=== PATIENT | female | born 1975 | race Caucasian/White ===

== ENCOUNTER 2020-10-21 11:41 | Outpatient (REF) | payer OTHER, SELFPAY | END 2020-10-21 11:42 | disposition home or self-care (01) | LOC: HO.LAB 11:41 | PROVIDERS: Visit Provider Internal Medicine | DX: Z20.822 Contact with and (suspected) exposure to COVID-19 (principal) | CPT/HCPCS: 36415; C9803; U0003; U0005 ==

== ENCOUNTER 2020-11-13 08:20 | Outpatient (REF) | payer OTHER, SELFPAY | END 2020-11-13 08:21 | disposition home or self-care (01) | LOC: HO.LAB 08:20 | PROVIDERS: Visit Provider Internal Medicine | DX: Z20.822 Contact with and (suspected) exposure to COVID-19 (principal) | CPT/HCPCS: C9803; U0003; U0005 ==

== ENCOUNTER 2023-08-20 08:30 | Outpatient (REF) | payer OTHER, SELFPAY ==
[2023-08-20 11:49] LABS: MANUAL DIFF FLAG NO
[2023-08-20 11:59] LABS: Basophils Absolute Auto 0.1 X10*3/uL (0.0-0.2); Basophils Percent Auto 1.2 % (0-2); Eosinophils Absolute Auto 0.1 X10*3/uL (0.0-0.4); Eosinophils Percent Auto 2.7 % (0-4); Hematocrit 37.9 % (37.0-47.0); Hemoglobin 13.2 g/dl (12.0-16.0); Imm Gran Abs Auto 0.01 X10*3/uL (0.00-0.03); Imm Gran Pct Auto 0.2 % (0.0-0.4); Lymphocytes Absolute Auto 2.1 X10*3/uL (1.2-4.9); Lymphocytes Percent Auto 40.3 % (20-40); Mean Corpuscular HGB Conc 34.8 g/dl (31.0-35.0); Mean Corpuscular Hemoglobin 29.7 pg (27.0-33.0); Mean Corpuscular Volume 85.4 fL (80.0-98.0); Mean Platelet Volume 10.7 fL (9.4-12.3); Monocytes Absolute Auto 0.5 X10*3/uL (0.1-1.2); Monocytes Percent Auto 9.7 % (2-11); Neutrophils Absolute Auto 2.4 x10*3/uL (2.0-8.3); Neutrophils Percent Auto 45.9 % (45-73); Platelet Count 284 X10*3/uL (160-400); Red Blood Count 4.44 X10*6/uL (4.20-5.50); Red Cell Distribution Width 12.7 % (11.0-16.0); White Blood Count 5.1 X10*3/uL (4.8-10.8)
[2023-08-20 12:11] LABS: Alanine Aminotransferase 21 U/L (0-31); Albumin Level 4.2 g/dL (3.5-5.0); Alkaline Phosphatase 55 U/L (39-117); Anion Gap 12 (12-20); Aspartate Amino Transferase 21 U/L (5-31); Bilirubin Total 0.5 mg/dL (0.0-1.0); Blood Urea Nitrogen 12 mg/dL (9-16); Calcium 9.9 mg/dL (8.4-10.2); Carbon Dioxide 28 mmol/L (22-29); Chloride 105 mmol/L (96-108); Cholesterol 121 mg/dL (<200); Estimated Glomerular Filt Rate > 60; Glucose Random 93 mg/dL (60-115); HDL Cholesterol 43 mg/dL (>40); LDL Cholesterol Calculated 67 mg/dL (<100); Potassium 3.6 mmol/L (3.3-5.1); Sodium 141 mmol/L (135-145); Triglycerides 58 mg/dL (<150)
== END 2023-08-20 08:31 | disposition home or self-care (01) ==
LOC: HO.HHCL 08:30
PROVIDERS: Visit Provider Internal Medicine Geriatric Medicine
DX: I10 Essential (primary) hypertension (principal); I63.81 Other cerebral infarction due to occlusion or stenosis of small artery; Z79.899 Other long term (current) drug therapy
CPT/HCPCS: 36415; 80053; 80061; 85025

== ENCOUNTER 2023-10-06 16:22 | Outpatient (REF) | payer OTHER, SELFPAY ==
[2023-10-06 18:28] LABS: Anion Gap 10 (12-20); Blood Urea Nitrogen 10 mg/dL (9-16); Calcium 9.6 mg/dL (8.4-10.2); Carbon Dioxide 29 mmol/L (22-29); Chloride 104 mmol/L (96-108); Estimated Glomerular Filt Rate > 60; Glucose Random 90 mg/dL (60-115); Magnesium 2.1 mg/dL (1.6-2.6); Potassium 3.9 mmol/L (3.3-5.1); Sodium 139 mmol/L (135-145)
== END 2023-10-06 16:23 | disposition home or self-care (01) ==
LOC: HO.HHCL 16:22
PROVIDERS: Visit Provider Internal Medicine Geriatric Medicine
DX: I10 Essential (primary) hypertension (principal)
CPT/HCPCS: 36415; 80048; 83735

== ENCOUNTER 2024-01-04 12:48 | Outpatient (REF) | payer OTHER, SELFPAY ==
[2024-01-05 20:03] LABS: Cardiolipin IgG Ab <2.0 GPL-U/mL; Cardiolipin IgM Ab 2.2 MPL-U/mL
[2024-01-06 18:53] LABS: Homocysteine 5.7 umol/L (<10.4)
[2024-01-08 06:14] LABS: PTT (LAC) Screen 33 sec (<=40)
[2024-01-11 20:03] LABS: Factor V Leiden NEGATIVE
== END 2024-01-04 12:49 | disposition home or self-care (01) ==
LOC: HO.LAB 12:48
PROVIDERS: PCP Internal Medicine Geriatric Medicine; Visit Provider Internal Medicine Cardiovascular Disease
DX: I63.9 Cerebral infarction, unspecified (principal)
CPT/HCPCS: 36415; 81241; 83090; 85597; 85598; 85613; 85730; 86147; 93005

== ENCOUNTER 2024-01-04 12:48 | Outpatient (AMB) | payer OTHER, SELFPAY ==
--- NOTE | 2024-01-04 12:52 | A.OFFVIS_ITS ---
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 I do not have the records from [facility] where she ended up going in July when she was having symptoms of numbness in her right lower extremity. She was subsequently told that she had a lesion in the left side of the brain which is consistent with a CVA. However she has not entirely sure. She says she underwent an extensive workup including CTA, MRI. No obvious etiology was found. She was started on dual antiplatelet therapy with aspirin and Plavix but did not tolerate Plavix therapy and this was discontinued by your team. She said in 2006 when she moved to [facility] she was under lot of stress and at that time she was started on amlodipine therapy which she is currently on. Blood pressures been generally well controlled. She at that time had an echocardiogram and was told that she might have a possible PFO. Although at that time she was told that she does not need to worry about it. She also said she had an echocardiogram in [place] at which time she was also told that she might have a PFO but not to worry about it. She specifically mentions that she had a bubble study. She denies any other cardiovascular history. Denies any symptoms of exertional chest pain or shortness of breath. No prolonged palpitations or irregular heartbeat. She has never had any other events in her life. She has a nonsmoker. No family history of atrial fibrillation or strokes or any other cardiovascular disease. PFSH Surgical History History of hysterectomy Family History Father HTN (hypertension) Mother No problems noted. Social History Patient Tobacco Use Status: Never used Tobacco Review of Systems Const Denies chills, Denies daytime sleepiness, Denies fatigue, Denies fever(s), Denies frequent falls, Denies poor appetite, Denies snoring, Denies stops breathing during sleep, Denies weakness, Denies weight gain and Denies weight loss Eyes Denies loss of vision ENT Denies dizziness and Denies hearing loss Card Denies chest pain, Denies claudication, Denies leg edema, Denies lightheadedness, Denies palpitations, Denies dyspnea, Denies dyspnea on exertion and Denies orthopnea Resp Denies cough, Denies excessive phlegm production, Denies dyspnea, Denies dyspnea on exertion, Denies snoring and Denies wheezing GI Denies abdominal pain, Denies hematochezia, Denies change in bowel habits, Denies nausea and Denies vomiting Denies urinary frequency and Denies dysuria Musc Denies arthralgias, Denies muscle weakness, Denies numbness and Denies other (frequent falls) Skin/Breast Denies nail changes and Denies rash Neuro Denies Abnormal speech present, Denies dizziness, Denies frequent falls, Denies loss of vision, Denies memory loss, Denies numbness and Denies weakness Psych Denies depression and Denies memory loss Endo Denies fatigue and Denies palpitations Edgar/Lymph Reports easy bruising and Reports other (anemia) Aller/Immun Denies wheezing Physical Exam Vital Signs: Last Vital Signs Pulse 59 01/04/24 12:53 BP 130/80 01/04/24 12:53 BMI result Body Mass Index 28.2 Const General: cooperative, comfortable, no acute distress, well developed, alert, awake, Physically active and well groomed Nutritional Appearance: average body habitus Orientation/consciousness: patient oriented x3 Limitations: no limitations HEENT Head: Yes normocephalic and Yes atraumatic Neck Neck: Yes trachea midline, Yes supple and Yes no JVD Resp Effort & Inspection: normal respiratory effort Auscultation: clear to auscultation bilaterally Cardio Jugular venous distension: no JVD Palpation: normal PMI Rate: regular rate Rhythm: regular rhythm Heart sounds: S1 normal heart sound present, S2 normal heart sound present, no click, no gallops, no murmurs and no rubs GI Auscultation: normal bowel sounds Skin General skin exam: no rashes or lesions noted Neuro General: patient oriented x3 and no focal motor deficits Speech: No Abnormal speech present Extrem General: Yes no clubbing, cyanosis or edema Psych Appearance: grossly normal Office Procedures EKG Details: EKG shows sinus bradycardia 59 beats per minute poor R-wave progression most likely due to lead placement [id number], Complete Assessment & Plan Assessment & Plan (1) CVA (cerebral vascular accident): Code(s): I63.9 - Cerebral infarction, unspecified Category: Medical Plan: It seems like patient neurologic symptoms consistent with a CVA with mostly sensory symptoms with her description of imaging showing evidence of CVA. Will obtain those records from [facility]. She also has possible history of prior PFO. Her RoPE score is 6 and if she does have a PFO may be a candidate for closure device if she has no other associated hypercoagulable state and/or atrial arrhythmias. Will obtain blood test panel as well as obtain a 30 day event monitor for the same. Will also schedule her for a transesophageal echocardiogram in near future after reviewing her [facility] records. We discussed the need for transesophageal echocardiogram including the risks, benefits and alternatives. Will follow up in the clinic in 2 months time, sooner p.r.n.. Thank you for allowing me to partake in her care Orders: Orders Homocysteine Today I63.9 - Cerebral infarction, unspecified Factor V Leiden Today I63.9 - Cerebral infarction, unspecified Cardiolipin Antibodies Today I63.9 - Cerebral infarction, unspecified Lupus Anticoagulant Panel Today I63.9 - Cerebral infarction, unspecified ECG 30 day event monitor Today I63.9 - Cerebral infarction, unspecified CA echo transesophageal w con Today I63.9 - Cerebral infarction, unspecified Coding Level of Care Code New Pt Level 4 (61379) Diagnoses CVA (cerebral vascular accident) I63.9 CPT Codes EKG - CPT: 87613-[id number], Complete ([id number])
[2024-01-04 12:53] VITALS: BP 130/80; PULSE 59; BMI 28.2
== END 2024-01-04 13:37 | disposition home or self-care (01) ==
PROVIDERS: PCP Internal Medicine Geriatric Medicine; Visit Provider Internal Medicine Cardiovascular Disease
DX: I63.9 Cerebral infarction, unspecified (principal)
CPT/HCPCS: 93010; 99204

== ENCOUNTER → 2024-01-14 14:02 | Outpatient (REF) | payer OTHER, SELFPAY ==
--- NOTE | 2024-01-14 14:04 | HM_ITS ---
* Total procedure length 30 days. Wear time 4.8 days. * Underlying rhythm is sinus with an average rate of 63/Min. * Rare supraventricular ectopy. * No sustained arrhythmias. * No clear patient symptoms recorded. MTDD
== END ==
LOC: HO.CARD 14:02
PROVIDERS: PCP Internal Medicine Geriatric Medicine; Visit Provider Internal Medicine Cardiovascular Disease
DX: I63.9 Cerebral infarction, unspecified (principal); R00.1 Bradycardia, unspecified
CPT/HCPCS: 93270

== ENCOUNTER → 2024-01-14 14:04 | Outpatient (BNV) | payer OTHER, SELFPAY | PROVIDERS: PCP Internal Medicine Geriatric Medicine; Visit Provider Internal Medicine | DX: I47.10 Supraventricular tachycardia, unspecified (principal) | CPT/HCPCS: 93272 ==

== ENCOUNTER 2024-01-26 10:44 | Day surgery (SDC) | payer OTHER, SELFPAY ==
[2024-01-24 07:44] VITALS: BMI 28.2
--- NOTE | 2024-01-24 15:00 | P.CONAN_ITS ---
Documented by User: Mary Ann Handley NP 01/24/24 15:02 HPI - Anesthesia Eval Consult details Narrative: 48yo F for Transesophageal Echocardiogram ? CVA 07/2023 (Seen at [facility]) Possible hx PFO PMFSH Active Problems Active Problems: All Active Problems CVA (cerebral vascular accident) (Acute) Past Medical History Medical History CVA (cerebral vascular accident) Family History Family History Father HTN (hypertension) Mother No problems noted. Surgical History Surgical History History of hysterectomy Social History Social History Patient Tobacco Use Status: Never used Tobacco Advance Directives: No Advance Directives Information Provided: Yes Meds Allergies Allergy/AdvReac Type Severity Reaction Status Date / Time No Known Allergies Allergy Unverified 04/18/20 18:40 [No Known Allergies*] Home Medications ?Medication ?Instructions ?Recorded ?Confirmed ?Last Taken ?Type amlodipine 5 mg tablet 5 mg PO QAM 01/04/24 01/04/24 Unknown History aspirin 81 mg tablet,delayed 81 mg PO DAILY 01/04/24 01/04/24 Unknown History release Exam Height,Weight and Vital Signs: Height 5 ft 2 in Weight 69.853 kg Pertinent Lab Results Pertinent Lab Results: Laboratory Tests 08/20/23 10/06/23 08:32 16:24 WBC 5.1 Hgb 13.2 Hct 37.9 Plt Count 284 Sodium 139 Potassium 3.9 Chloride 104 Carbon Dioxide 29 BUN 10 Creatinine 0.72 Narrative Narrative: EKG 01/2024 sinus bradycardia 59 beats per minute poor R-wave progression most likely due to lead placement Assessment and Plan Assessment Anesthesia Assessment: Chart Reviewed Documented by User: Ashley Hilario MD 01/26/24 11:20 [facility] Past Medical History Medical History CVA (cerebral vascular accident) Family History Family History Father HTN (hypertension) Mother No problems noted. Family history of problems with anesthesia: No Surgical History Surgical History History of hysterectomy History of Problems with Anesthesia: No Social History Social History Patient Tobacco Use Status: Never used Tobacco Advance Directives: No Advance Directives Information Provided: Yes Meds Allergies Allergy/AdvReac Type Severity Reaction Status Date / Time No Known Allergies Allergy Unverified 04/18/20 18:40 [No Known Allergies*] Home Medications ?Medication ?Instructions ?Recorded ?Confirmed ?Last Taken ?Type amlodipine 5 mg tablet 5 mg PO QAM 01/04/24 01/04/24 Unknown History aspirin 81 mg tablet,delayed 81 mg PO DAILY 01/04/24 01/04/24 Unknown History release Exam Airway Mallampati Class: II TM Dist: >3cm Heart: rrr Lungs: cta Assessment and Plan Assessment Anesthesia Assessment: Anesthesia Plan Discussed Final Anesthetic Review Family History of Problems with Anesthesia: No History of Problems with Anesthesia: No NPO: Yes ASA Class: III Final Preanesthetic Review: No Changes in Pt Med Stat, Meds/Allgs Chart Reviewed, Consent Obtained/Reviewed and Anes Risks/Benef Reviewed Patient Risk: Intermediate Procedure Risk: Low Anesthetic Plan Anesthetic Plan: MAC: Disposition: Standard PACU
--- NOTE | 2024-01-26 11:12 | CA_ITS ---
Transesophageal Echocardiogram Patient (Last, First, Middle): Magaly Day, Gender: Female Date of : 1975 Age: 48 Procedure Date: 01/26/2024 Procedure Type: Transesophageal Echocardiogram Location: OP Height: 157.48 cm Weight: 69. kg BSA: 1.70 m2 Heart Rate: 80 bpm Fare Enforcement Officer: RICARDO Referring MD: Tc Swift MD Outside Machinist Helper: Tc Swift MD Symptoms: CVA Conclusion: ??? 1. PFO present which is moderately positive by saline contrast study 2. Normal LV systolic function 3. Cardiac valves within normal limits with no significant abnormality of cardiac valvular Dopplers 4. No intracardiac thrombi, masses, vegetations 5. Normal pericardium 6. Minimal atherosclerotic changes noted in the descending thoracic aorta Findings Procedure Information Consent was obtained prior to the procedure. Pre ZEFERINO oral cavity was checked and revealed no overcrowding. The adult 3D probe was passed with no difficulty. Left Ventricle Normal left ventricular size, thickness, and systolic function. The visually estimated ejection fraction is between 60-65%. Spectral Doppler is indicative of a normal filling pattern. Right Ventricle Normal right ventricular cavity size and systolic function. Atria The left atrium is normal in size. There is a mobile atrial septum noted. There is no evidence of a thrombus in the left atrial appendage. Contrast study for right to left shunting is moderately positive. Patent foramen ovale detected using by contrast. There is no evidence of thrombus or mass in the left atrium. The left upper, right upper and right lower pulmonary veins drain normally into the left atrium. The right atrium is normal in size. There is no evidence of thrombus or mass in the right atrium. The IVC and SVC draining into the right atrium normally. Aortic Valve Normal aortic valve structure and function. There is no aortic valve stenosis. There is no aortic valve regurgitation. Mitral Valve Normal mitral valve structure and function. There is trace mitral valve regurgitation. There is no mitral valve stenosis. Mild strand-like structure attached to the anterior mitral leaflet which is floating most suggestive of ruptured tertiary chordae Pulmonic Valve The pulmonic valve is normal. There is trace pulmonic valve regurgitation. Tricuspid Valve There is trace tricuspid valve regurgitation. The right ventricular systolic pressure is not calculated. Great Vessels All visible segments of the aorta are normal in size. The visualized portions of the pulmonary artery and branches are normal. mild atherosclerotic changes noted in the descending thoracic aorta Venous The inferior vena cava is normal in size and collapses greater than 50% with inspiration. Pericardium/Pleural There is no evidence of pericardial effusion. Prior Study Comparison No prior study available for comparison. Measurements Aortic Valve AoV Pk Josue: 1.34 AoV Pk Grad: 7.00 Pulmonary Veins Pulm Vein S/D 1.90 Updated by Tc Swift on 08:29 AM with Status of Final Tc Swift MD electronically signed on 01/27/2024 8:29:36 AM with status of Final
--- NOTE | 2024-01-26 11:12 | MHC.SHP ---
Pre-Procedural Eval Section A - 24 Hr Update-Section A only Date of Service: 01/26/24 The patient is an INPATIENT: No Changes since office visit: Yes Patient answered all questions; No Cold of Flu in the past 2 weeks, No New Medical Problems and No Changes in Medication The patient has been examined within 24 hours of the surgical procedure. The History & Physical has been completed within 30 days and I have reviewed it.: Yes Section B - Complete if H&P > 30 days Chief Complaint: Cerebral infarction, unspecified Allergies: Allergies Allergy/AdvReac Type Severity Reaction Status Date / Time No Known Allergies Allergy Unverified 04/18/20 18:40 [No Known Allergies*] Plan I have reviewed the history and physical and performed a pertinent physical examination on my patient. No changes have occurred unless specified. Time Spent With Patient Time: Total time managing care of this patient today ____ minutes.
[2024-01-26 11:19] VITALS: BP 163/76; PULSE 59; RESP 18; TEMP 36.7; O2SAT 99
[2024-01-26] MEDS: Lactated Ringers 1,000 ML 100 ML IVCONT (11:24)
[2024-01-26 12:48] VITALS: BP 154/87; PULSE 73; RESP 16; TEMP 36.1; O2SAT 97
[2024-01-26 13:03] VITALS: BP 148/91; PULSE 54; RESP 16; O2SAT 100
[2024-01-26 13:18] VITALS: BP 158/83; PULSE 58; RESP 16; O2SAT 99
[2024-01-26 13:33] VITALS: BP 157/86; PULSE 58; RESP 16; TEMP 36.3; O2SAT 98
== END 2024-01-26 14:50 | disposition home or self-care (01) ==
PROVIDERS: PCP Internal Medicine Geriatric Medicine; Visit Provider Internal Medicine Cardiovascular Disease
PROC: (CPT 93312; principal; 2024-01-26 12:00)
DX: I63.9 Cerebral infarction, unspecified (principal); Z79.82 Long term (current) use of aspirin; Z79.02 Long term (current) use of antithrombotics/antiplatelets
CPT/HCPCS: 93312; J2704

== ENCOUNTER → 2024-01-26 11:12 | Outpatient (BNV) | payer OTHER, SELFPAY | PROVIDERS: PCP Internal Medicine Geriatric Medicine; Visit Provider Internal Medicine Cardiovascular Disease | DX: I63.9 Cerebral infarction, unspecified (principal) | CPT/HCPCS: 93312; 93320 ==

== ENCOUNTER 2024-01-27 07:38 | Outpatient (AMB) | payer OTHER, SELFPAY ==
--- NOTE | 2024-01-27 07:39 | MHC.OFFVIS ---
Vital Signs 01/27/24 07:42 01/27/24 08:16 Height 5 ft 2 in Weight 156 lb 8.451 oz BMI 28.6 BP 175/72 H 148/71 H Blood Pressure Location Lt brachial Lt brachial Position Sitting Sitting Pulse 57 55 Intake Visit Reasons: pt. wants to speak with Dr. Lee Intake Note: Magaly presents in the office to speak with Dr Lee. CC: She states that her stomach bothers her - she suffers from constipation. She states that it will be 5-7 days without a BM - she states she is eating better and not sure if maybe that it is normal. She states the pains are in the middle epigastric region. 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 wants to speak with Dr. Lee: Details: Initial GI clinic visit for this 48 Y Female with multiple myeloma (on biologics in the past) and left-sided thalamic stroke (aug, 2023) for evaluation of abdominal pain and constipation. Pt has multiple myeloma and she is not on any medications at present (followed by Dr Crow at [facility] every [address] Loya at every 6 months) She was having diarrhea on Revlimid (Lenalidomide) for Multiple Myeloma. LABS IN [facility] : 08/20/23 reviewed - normal CBC, Chem panel and LFTs TODAY'S VISIT: CC: She states that her stomach bothers her - she suffers from constipation. She states that it will be 5-7 days without a BM - she states she is eating better and not sure if maybe that it is normal. She states the pains are in the middle epigastric region - notes chest pressure/? spasm when she bends down (pt states she was told she may have a hernia when she had a hysterectomy) Has been eating a healthier, low carb diet. Taking more fruits and vegetables and notes increase in constipation Drinks a lot of water. She was having a BM 3-4 times a week and now having a BM every 5 days with straining and hard stools. A lot of pain and pushing without results Took a red pill which has helped. Abd feels hard and feels like its going to blow. Intermittent loss of appetite Patient denies symptoms of heartburn, dysphagia, nausea, vomiting or weight loss. Denies diarrhea, black stools or rectal bleeding. Stool can be dark at times depending on her diet. Patient denies major cardiac or pulmonary problems, loud snoring or sleep apnea Had a bubble test on 01/26/24 - cardiology FU in March. Denies problems with anesthesia in the past. Takes aspirin daily and denies being on chronic anticoagulation (Plavix was causing stomach pains). Patient denies known family history of colon polyps, colon cancer or other GI malignancies. PAST EGD/COLONOSCOPY: Thinks she may have had an EGD in [place] in her 20's - negative per pt [facility] Medical History CVA (cerebral vascular accident) Surgical History History of hysterectomy Family History Father HTN (hypertension) Mother No problems noted. Social History Patient Tobacco Use Status: Never used Tobacco Review of Systems Const Denies chills, Denies daytime sleepiness, Denies fatigue, Denies fever(s), Denies frequent falls, Denies poor appetite, Denies snoring, Denies stops breathing during sleep, Denies weakness, Denies weight gain and Denies weight loss Eyes Denies loss of vision ENT Denies dizziness and Denies hearing loss Card Denies chest pain, Denies claudication, Denies leg edema, Denies lightheadedness, Denies palpitations, Denies dyspnea, Denies dyspnea on exertion and Denies orthopnea Resp Denies cough, Denies excessive phlegm production, Denies dyspnea, Denies dyspnea on exertion, Denies snoring and Denies wheezing GI Denies abdominal pain, Denies hematochezia, Denies change in bowel habits, Denies nausea and Denies vomiting Denies urinary frequency and Denies dysuria Musc Denies arthralgias, Denies muscle weakness, Denies numbness and Denies other (frequent falls) Skin/Breast Denies nail changes and Denies rash Neuro Denies Abnormal speech present, Denies dizziness, Denies frequent falls, Denies loss of vision, Denies memory loss, Denies numbness and Denies weakness Psych Denies depression and Denies memory loss Endo Denies fatigue and Denies palpitations Edgar/Lymph Reports easy bruising and Reports other (anemia) Aller/Immun Denies wheezing Physical Exam Vital Signs: Last Vital Signs Pulse 55 01/27/24 08:16 BP 148/71 H 01/27/24 08:16 BMI result Body Mass Index 28.6 Const General: cooperative, comfortable, no acute distress, well developed, alert, awake, Physically active and well groomed Nutritional Appearance: average body habitus Orientation/consciousness: patient oriented x3 Limitations: no limitations HEENT Head: Yes normocephalic and Yes atraumatic Neck Neck: Yes trachea midline, Yes supple and Yes no JVD Resp Effort & Inspection: normal respiratory effort Auscultation: clear to auscultation bilaterally Cardio Jugular venous distension: no JVD Palpation: normal PMI Rate: regular rate Rhythm: regular rhythm Heart sounds: S1 normal heart sound present, S2 normal heart sound present and no murmurs GI Auscultation: normal bowel sounds Skin General skin exam: no rashes or lesions noted Neuro General: patient oriented x3 and no focal motor deficits Speech: No Abnormal speech present Extrem General: Yes no clubbing, cyanosis or edema Psych Appearance: grossly normal Assessment & Plan Assessment & Plan (1) Chronic constipation: Code(s): K59.09 - Other constipation Category: Medical (2) Colon cancer screening: Code(s): Z12.11 - Encounter for screening for malignant neoplasm of colon Category: Medical Plan 48 year old female with multiple myeloma (on biologics in the past) and left-sided thalamic stroke (aug, 2023) for evaluation of abdominal pain and constipation. She states that it will be 5-7 days without a BM - she states she is eating better and not sure if maybe that it is normal. She states the pains are in the middle epigastric region - notes chest pressure/? spasm when she bends down (pt states she was told she may have a hernia when she had a hysterectomy) Recent onset of constipation likely due to a change in her diet and colonic inertia. Patient was advised to take senna plus every other day and monitor her symptoms. Schedule colonoscopy (screening and constipation) and same day EGD (epigastric pain/? GERD) Both procedures and potential complications including bleeding, perforation, reaction to anesthetic and aspiration were reviewed with the patient. FU in 4 months Medications: New sennosides-docusate sodium 8.6-50 mg (Senna with Docusate Sodium) Please take every other day at bedtime 1 tab-cap PO BEDTIME 60 tabs 2RF 60 days Coding Level of Care Code New Pt Level 4 (83479) Diagnoses Chronic constipation K59.09 Colon cancer screening Z12.11 Time Spent (min) 26
[2024-01-27 07:42] VITALS: BP 175/72; PULSE 57; BMI 28.6
[2024-01-27 08:16] VITALS: BP 148/71; PULSE 55
== END 2024-01-27 08:20 | disposition home or self-care (01) ==
LOC: HO.HGI 07:38
PROVIDERS: PCP Internal Medicine Geriatric Medicine; Visit Provider Internal Medicine Gastroenterology
DX: K59.09 Other constipation (principal); Z12.11 Encounter for screening for malignant neoplasm of colon
CPT/HCPCS: 99204

== ENCOUNTER → 2024-01-27 07:38 | Outpatient (BNVA) | payer OTHER, SELFPAY | PROVIDERS: PCP Internal Medicine Geriatric Medicine; Visit Provider Internal Medicine Gastroenterology ==

== ENCOUNTER 2024-03-06 13:20 | Outpatient (AMB) | payer OTHER, SELFPAY ==
--- NOTE | 2024-03-06 13:24 | MHC.OFFVIS ---
Vital Signs 03/06/24 13:25 Height 5 ft 2 in Weight 156 lb 8.451 oz BMI 28.6 BP 140/86 H Blood Pressure Location Lt brachial Position Sitting Pulse 66 Intake Visit Reasons: 2 mth s/p ZEFERINO/ labs/ event Intake Note: 2 month follow-up after ZEFERINO and event monitor [employer] Worker Required: No Allergies No Known Allergies [No Known Allergies*] Allergy (Unverified 01/27/24 07:42) Medication List - Last Reconciled 03/06/24 by Tc Swift MD amlodipine 5 mg PO QAM aspirin 81 mg PO DAILY sennosides-docusate sodium 8.6-50 mg (Senna with Docusate Sodium) 1 tab-cap PO BEDTIME 60 days HPI Comments Details: Magaly comes for follow-up. She underwent a ZEFERINO which showed presence of PFO, was referred for PFO closure although she has not heard from anybody. Patient had a event monitor without any episodes of atrial fibrillation. Patient also has negative thrombophilic workup. Comes for follow-up. No recurrent neurologic events. Takes all her medications [facility] Medical History CVA (cerebral vascular accident) Surgical History History of hysterectomy Family History Father HTN (hypertension) Mother No problems noted. Social History Patient Tobacco Use Status: Never used Tobacco Review of Systems Const Denies chills, Denies fatigue, Denies fever(s), Denies frequent falls, Denies weakness, Denies weight gain and Denies weight loss ENT Denies dizziness Card Denies chest pain, Denies leg edema, Denies lightheadedness, Denies palpitations, Denies dyspnea, Denies dyspnea on exertion, Denies orthopnea and Denies other (loss of consciousness) Resp Denies cough, Denies dyspnea and Denies dyspnea on exertion GI Denies hematochezia and Denies change in stool character Musc Denies abnormal gait, Denies muscle weakness, Denies numbness, Denies radiating pain into limb and Denies tingling Neuro Denies Abnormal speech present, Denies abnormal gait, Denies dizziness, Denies frequent falls, Denies numbness, Denies tingling and Denies weakness Endo Denies fatigue and Denies palpitations Physical Exam Vital Signs: Last Vital Signs Pulse 66 03/06/24 13:25 BP 140/86 H 03/06/24 13:25 BMI result Body Mass Index 28.6 Const General: cooperative, comfortable, no acute distress, well developed, alert, awake, Physically active and well groomed Nutritional Appearance: average body habitus Orientation/consciousness: patient oriented x3 Limitations: no limitations HEENT Head: Yes normocephalic and Yes atraumatic Neck Neck: Yes trachea midline, Yes supple and Yes no JVD Resp Effort & Inspection: normal respiratory effort Auscultation: clear to auscultation bilaterally Cardio Jugular venous distension: no JVD Palpation: normal PMI Rate: regular rate Rhythm: regular rhythm Heart sounds: S1 normal heart sound present, S2 normal heart sound present, no click, no gallops, no murmurs and no rubs GI Auscultation: normal bowel sounds Skin General skin exam: no rashes or lesions noted Neuro General: patient oriented x3 and no focal motor deficits Speech: No Abnormal speech present Extrem General: Yes no clubbing, cyanosis or edema Psych Appearance: grossly normal Assessment & Plan Assessment & Plan (1) CVA (cerebral vascular accident): Code(s): I63.9 - Cerebral infarction, unspecified Category: Medical Plan: CVA with thalamic stroke with repeat TIA with presence of PFO by ZEFERINO. No other obvious etiology with negative thrombophilic workup as well as no evidence of atrial fibrillation. RoPE score of 6. I think patient would benefit from PFO closure. Will refer to Dr. Figueroa at [facility] for the same and evaluation. Will follow up post closure. Coding Level of Care Code Est Pt Level 3 (41999) Diagnoses CVA (cerebral vascular accident) I63.9
[2024-03-06 13:25] VITALS: BP 140/86; PULSE 66; BMI 28.6
== END 2024-03-06 13:43 | disposition home or self-care (01) ==
PROVIDERS: PCP Internal Medicine Geriatric Medicine; Visit Provider Internal Medicine Cardiovascular Disease
DX: I63.9 Cerebral infarction, unspecified (principal)
CPT/HCPCS: 99213

== ENCOUNTER → 2024-03-06 13:20 | Outpatient (BNVA) | payer OTHER, SELFPAY | PROVIDERS: PCP Internal Medicine Geriatric Medicine; Visit Provider Internal Medicine Cardiovascular Disease ==

== ENCOUNTER 2024-05-12 09:03 | Outpatient (REF) | payer OTHER, SELFPAY ==
[2024-05-12 11:46] LABS: Anion Gap 10 (12-20); Blood Urea Nitrogen 19 mg/dL (9-16); Calcium 8.8 mg/dL (8.4-10.2); Carbon Dioxide 29 mmol/L (22-29); Chloride 106 mmol/L (96-108); Estimated Glomerular Filt Rate > 60; Glucose Random 99 mg/dL (60-115); Potassium 3.7 mmol/L (3.3-5.1); Sodium 141 mmol/L (135-145)
== END 2024-05-12 09:04 | disposition home or self-care (01) ==
LOC: HO.HHCL 09:03
PROVIDERS: Visit Provider Internal Medicine Geriatric Medicine
DX: I10 Essential (primary) hypertension (principal)
CPT/HCPCS: 36415; 80048

== ENCOUNTER 2024-06-23 10:18 | Emergency (ER) | payer OTHER, SELFPAY ==
[2024-06-23] VITALS (8 sets, daily range): BP systolic 142–189; BP diastolic 68–93; PULSE 64–76; RESP 16–18; TEMP 37–37.1; O2SAT 98–100; BMI 28.3
--- NOTE | ~2024-06-23 | XR_ITS ---
EXAMINATION: XR CHEST CLINICAL INFORMATION: chest pain COMPARISON: None available. TECHNIQUE: PA view of the chest was obtained. FINDINGS: The lungs are well expanded. No focal consolidation, effusion, edema, or pneumothorax. The cardiomediastinal silhouette is within normal limits for technique. Atrial septal defect closure device. No acute osseous abnormality. Amorphous density overlying the upper trachea and biapical lungs likely represents clothing external to the patient, such as a hair scrunchie. XR/XR chest 1V IMPRESSION: No acute pulmonary disease. Electronically signed by: Bouchra Fitzgerald DO 06/23/2024 02:56 PM JASMINE
--- NOTE | 2024-06-23 10:20 | ECG_ITS ---
Test Reason : CP Blood Pressure : / mmHG Vent. Rate : 071 BPM Atrial Rate : 071 BPM P-R Int : 164 ms QRS Dur : 090 ms QT Int : 382 ms P-R-T Axes : -01 -04 -03 degrees QTc Int : 415 ms Normal sinus rhythm Anterior infarct , age undetermined Abnormal ECG No previous ECGs available Referred By: Generic ED Physician Electronically Signed By:JENN WALTER MD
[2024-06-23 10:50] LABS: MANUAL DIFF FLAG NO
[2024-06-23 10:55] LABS: Basophils Absolute Auto 0.1 X10*3/uL (0.0-0.2); Basophils Percent Auto 0.8 % (0-2); Eosinophils Absolute Auto 0.1 X10*3/uL (0.0-0.4); Hematocrit 38.7 % (37.0-47.0); Hemoglobin 13.5 g/dl (12.0-16.0); Imm Gran Abs Auto 0.02 X10*3/uL (0.00-0.03); Imm Gran Pct Auto 0.3 % (0.0-0.4); Lymphocytes Absolute Auto 1.6 X10*3/uL (1.2-4.9); Lymphocytes Percent Auto 26.9 % (20-40); Mean Corpuscular HGB Conc 34.9 g/dl (31.0-35.0); Monocytes Absolute Auto 0.6 X10*3/uL (0.1-1.2); Monocytes Percent Auto 10.6 % (2-11); Neutrophils Absolute Auto 3.5 x10*3/uL (2.0-8.3); Neutrophils Percent Auto 59.4 % (45-73); Platelet Count 236 X10*3/uL (160-400); Red Cell Distribution Width 12.9 % (11.0-16.0)
[2024-06-23 11:11] LABS: Alanine Aminotransferase 17 U/L (0-31); Albumin Level 3.9 g/dL (3.5-5.0); Alkaline Phosphatase 49 U/L (39-117); Anion Gap 9 (12-20); Aspartate Amino Transferase 20 U/L (5-31); Bilirubin Total 0.8 mg/dL (0.0-1.0); Blood Urea Nitrogen 13 mg/dL (9-16); Carbon Dioxide 23 mmol/L (22-29); Chloride 107 mmol/L (96-108); Estimated Glomerular Filt Rate > 60; Glucose Random 94 mg/dL (60-115); Potassium 3.3 mmol/L (3.3-5.1); Sodium 136 mmol/L (135-145); Total Protein 6.8 g/dL (6.5-8.0)
[2024-06-23 11:16] LABS: Troponin-I High Sensitivity < 2.7 ng/L (<3.5-17.0)
--- NOTE | 2024-06-23 11:42 | PC.NURSE ---
resting queitly in bed. nsr on monitor. reports dizziness, palpitations, left anterior CP since wednesday. intermittent. also was SOB at times. no sx at this time
--- NOTE | 2024-06-23 12:00 | ED_ITS ---
HPI - Chest Pain General Chief Complaint: Chest Pain Stated Complaint: chest pain rapid heart beat Time Seen by Provider: 06/23/24 11:09 Source: patient, RN notes reviewed and old records reviewed Mode of arrival: ambulatory History of Present Illness ED Provider: Ronel Cortez PA-C HPI narrative: 49-year-old female with a past medical history CVA, PFO s/p surgical closure on 05/25/24 at [facility], presenting to the ED complaining of intermittent chest tightness, palpitations, SOB, and lightheadedness x 5 days. Denies associated fever, chills, nausea, vomiting, abdominal pain, pedal edema. Is currently on Plavix/ASA Related Data Home Medications ?Medication ?Instructions ?Recorded ?Confirmed amlodipine 5 mg tablet 5 mg PO QAM 01/04/24 03/06/24 aspirin 81 mg tablet,delayed 81 mg PO DAILY 01/04/24 03/06/24 release Previous Rx's ?Medication ?Instructions ?Recorded sennosides 8.6 mg-docusate sodium 1 tab-cap PO BEDTIME 60 days #60 01/27/24 50 mg tablet (Senna with Docusate tabs Sodium) Allergies Allergy/AdvReac Type Severity Reaction Status Date / Time No Known Allergies Allergy Verified 06/23/24 10:36 [No Known Allergies*] Review of Systems 2 Review of Systems: Yes all other systems are reviewed and are negative Constitutional: Constitutional: Reports as per HPI Neurologic: Denies Abnormal speech present [facility] Past Medical History Attestation statement: The following information was validated with the patient. Source: old records reviewed Medical History CVA (cerebral vascular accident) Surgical History History of hysterectomy Family History Family History Father HTN (hypertension) Mother No problems noted. Social History Social History Patient Tobacco Use Status: Never used Tobacco Smoked in Last 30 Days: No Use of substances other than those prescribed or required for medical reasons: No Advance Directives: No Advance Directives Information Provided: Yes Do you have a plan to hurt others: No Plan Patient : No Physical Exam 2 Vital Signs: Vital Signs: Last Vital Signs Temp 98.7 F 06/23/24 15:54 Pulse 68 06/23/24 15:54 Resp 18 06/23/24 15:54 BP 160/86 H 06/23/24 15:54 Pulse Ox 98 06/23/24 15:54 O2 Del Method Room Air 06/23/24 15:54 BMI result Body Mass Index 28.3 Const: General: cooperative, healthy appearing and no acute distress O rientation/consciousness: patient oriented x3 Limitations: no limitations HEENT: Head: Yes normal to inspection and Yes atraumatic Ears: hearing grossly normal bilaterally General nose exam: Normal external nose present Face and sinus: Yes normal facial exam Mouth: Normal oral and palatal mucosa present Throat: Yes posterior oropharynx normal and Yes uvula midline Eyes: General: appearance normal, both eyes and all related structures P upils: Equal, round and reactive pupils present EOM: EOMs intact bilaterally Neck: Neck: Yes normal visual inspection and Yes no meningeal signs Resp: Effort & Inspection: normal respiratory effort and no respiratory distress Auscultation: clear to auscultation bilaterally, no crackles and no wheezes Cardio: Rate: regular rate Heart sounds: S1 normal heart sound present and S2 normal heart sound present GI: Inspection: Yes normal to inspection Palpation (GI): Soft to palpation, nontender, no guarding and not rigid Skin: Rashes: no rashes Wounds: no wounds Neuro: General: patient oriented x3, gait normal, tone normal, moves all extremities, no meningeal signs, no focal motor deficits and CN's II-XI intact bilaterally Cranial nerves: Yes CN's II-XII intact bilaterally and Yes Equal, round and reactive pupils present Cognition (Neuro): normal cognition S peech: No Abnormal speech present Gait exam (Neuro): Normal gait present M otor exam (neuro): 5/5 motor strength present throughout Extrem: General: Yes normal to inspection and Yes no pedal edema Course Course Course Narrative: -[id number]-- labs reassuring including negative troponin and TSH - viral studies negative - CXR unremarkable > spoke with [facility] cardiology, Dr. Stevenson, discussed case. States unlikely related to procedure, he will leave note for Dr. Figueroa (patients MD). Comfortable for patient to be discharged Results discussed with patient including worrisome signs and symptoms and strict return precautions, and when to return to the emergency department. They verbalized understanding and feel safe for discharge at this time. Medical Decision Making Medical Decision Making [facility] Narrative: 49-year-old female with a past medical history CVA, PFO s/p surgical closure on 05/25/24 at [facility], presenting to the ED complaining of intermittent chest tightness, palpitations, SOB, and lightheadedness x 5 days. on exam vital signs stable, mildly hypertensive, NAD, nontoxic appearing, lungs CTA, no pedal edema, no focal neuro deficits. Concern for atypical ACS vs anxiety vs viral syndrome vs CHF vs pneumonia/ PTX or surgical complication. Low suspicion for PE/ DVT or dissection Plan: EKG, labs, CXR, viral studies, consult patient's mechanical system technician Please refer to course for remaining clinical decision making, interpretation of labs/imaging results, and discussions with consultants and/or family members. Differential Diagnosis Differential Diagnoses: The differential diagnosis associated with the presentation includes As above Admission/Observation Consideration of admission/observation: Escalation of care including admission/observation considered Consult Healthcare Provider Management of the patient was discussed with: [employer] Lab Data [facility] Lab Attestation statement: I reviewed the patient's lab results. 06/23/24 10:45 06/23/24 10:45 Labs: Lab Results 06/23/24 06/23/24 Range/Units 10:45 12:03 WBC 6.0 (4.8-10.8) X10*3/uL RBC 4.50 (4.20-5.50) X10*6/uL Hgb 13.5 (12.0-16.0) g/dl Hct 38.7 (37.0-47.0) % MCV 86.0 (80.0-98.0) fL MCH 30.0 (27.0-33.0) pg MCHC 34.9 (31.0-35.0) g/dl RDW 12.9 (11.0-16.0) % Plt Count 236 (160-400) X10*3/uL MPV 10.0 (9.4-12.3) fL Immature Gran % (Auto) 0.3 (0.0-0.4) % Neut % (Auto) 59.4 (45-73) % Lymph % (Auto) 26.9 (20-40) % Anderson % (Auto) 10.6 (2-11) % Eos % (Auto) 2.0 (0-4) % Baso % (Auto) 0.8 (0-2) % Lymph # (Auto) 1.6 (1.2-4.9) X10*3/uL Anderson # (Auto) 0.6 (0.1-1.2) X10*3/uL Eos # (Auto) 0.1 (0.0-0.4) X10*3/uL Baso # (Auto) 0.1 (0.0-0.2) X10*3/uL Abs Immat Gran (auto) 0.02 (0.00-0.03) X10*3/uL Absolute Neuts (auto) 3.5 (2.0-8.3) x10*3/uL Absolute Nucleated RBC 0.000 (0.0-0.012) X10*3/uL Nucleated RBC % (auto) 0.0 (0.0-0.2) /100WBC PT 12.1 (10.9-12.4) SEC INR 1.0 (0.9-1.1) Sodium 136 (135-145) mmol/L Potassium 3.3 (3.3-5.1) mmol/L Chloride 107 (96-108) mmol/L Carbon Dioxide 23 (22-29) mmol/L Anion Gap 9 L (12-20) BUN 13 (9-16) mg/dL Creatinine 0.78 (0.5-1.4) mg/dL Estim Creat Clear Calc 73.0 Estimated GFR > 60 Random Glucose 94 (60-115) mg/dL Calcium 9.0 (8.4-10.2) mg/dL Magnesium 2.2 (1.6-2.6) mg/dL Total Bilirubin 0.8 (0.0-1.0) mg/dL AST 20 (5-31) U/L ALT 17 (0-31) U/L Alkaline Phosphatase 49 (39-117) U/L Troponin I High Sens < 2.7 (<3.5-17.0) ng/L B-Natriuretic Peptide 20 (<100) pg/mL Total Protein 6.8 (6.5-8.0) g/dL Albumin 3.9 (3.5-5.0) g/dL TSH 1.27 (0.32-4.0) uIU/mL Influenza Type A (PCR) NEGATIVE (Negative) Influenza Type B (PCR) NEGATIVE (Negative) RSV RNA Qual (PCR) NEGATIVE (Negative) SARS-CoV-2 RNA (RT-PCR) NEGATIVE (Negative) Independent Interpretation I performed an independent interpretation of an: EKG and Plain X-Ray Radiology Impression Discussion of test interpretation with radiology: I have reviewed the radiologist's reading. Independent Historian Clinical information obtained from an independent historian. History obtained from or confirmed by: Other External Record Review External record reviewed: Inpatient record, Office record, Outpatient record, Prior outpatient labs, Prior outpatient radiology, Primary care record and Outside ED record Tests considered The following testing was considered but not selected: As above Prescription Management I considered prescription management with: Pain Medication Chronic Conditions Patient?s care impacted by: Other Discharge Plan Discharge Clinical Impression: Atypical chest pain Patient Disposition: Home, Self-Care Instructions: Noncardiac Chest Pain (ED) Additional Instructions: your blood work and chest x-ray are reassuring You tested negative for COVID, flu, RSV We spoke with her mechanical system technician, they are aware of your visit today, please call them for close follow-up If her symptoms persist or worsen you constant worsening chest pain, shortness of breath, fever, leg swelling return to the ED Prescriptions: No Action amlodipine 5 mg tablet 5 mg PO QAM aspirin 81 mg tablet,delayed release (DR/EC) 81 mg PO DAILY sennosides-docusate sodium [Senna with Docusate Sodium] 8.6-50 mg tablet 1 tab-cap PO BEDTIME 60 Days Qty: 60 2RF Rx Instructions: Please take every other day at bedtime Referrals: Matt Figueroa MD [Physician] - Stand Alone Forms: Work/School Release Interventions: ED Discharge Assessment Last Done: 06/23/24 15:54 Discharge Date/Time: 06/23/24 15:54 Print Language: [place]
[2024-06-23 12:13] LABS: Magnesium 2.2 mg/dL (1.6-2.6)
[2024-06-23 12:22] LABS: B Type Natriuretic Peptide 20 pg/mL (<100)
[2024-06-23 12:27] LABS: Prothrombin Time 12.1 SEC (10.9-12.4)
--- NOTE | 2024-06-23 12:31 | PC.NURSE ---
no distress. awaits lab results.
[2024-06-23 12:34] LABS: TSH reflex Free T4 1.27 uIU/mL (0.32-4.0)
[2024-06-23 12:56] LABS: Influenza A PCR NEGATIVE (Negative); Influenza B PCR NEGATIVE (Negative); Resp Syncy Virus RNA Qual PCR NEGATIVE (Negative); SARS COV2 PCR INHOUSE NEGATIVE (Negative)
--- NOTE | 2024-06-23 14:27 | PC.NURSE ---
resting quietly. nad. states she has palpitations once in a while. nothing noted on monitor. waiting for rad read.
== END 2024-06-23 15:54 | disposition home or self-care (01) ==
PROVIDERS: Physician Assistant; Emergency Provider Emergency Medicine; PCP Internal Medicine Geriatric Medicine
DX: R07.89 Other chest pain (principal); Z03.818 Encounter for observation for suspected exposure to other biological agents ruled out; R06.02 Shortness of breath; Z79.82 Long term (current) use of aspirin; Z79.899 Other long term (current) drug therapy
CPT/HCPCS: 0241U; 36415; 71045; 80053; 83735; 83880; 84443; 84484; 85025; 85610; 93005; 99283; 99285

== ENCOUNTER → 2024-06-23 10:20 | Outpatient (BNV) | payer OTHER, SELFPAY | PROVIDERS: Emergency Provider Emergency Medicine; PCP Internal Medicine Geriatric Medicine; Visit Provider Internal Medicine Cardiovascular Disease | DX: R07.9 Chest pain, unspecified (principal); R94.31 Abnormal electrocardiogram [ECG] [EKG] | CPT/HCPCS: 93010 ==

== ENCOUNTER 2024-07-28 11:52 | Day surgery (SDC) | payer OTHER, SELFPAY ==
[2024-07-25 12:04] VITALS: BMI 28.5
--- NOTE | 2024-07-27 10:30 | HO.ANESPROP2 ---
HPI - Anesthesia Eval Consult details Narrative: 49yo F for Upper Endoscopy and Colonoscopy Follows [facility] cardiology. Optimized for endos s/p PFO closure 05/2024, plavix (ok to hold per cardiology, continue asa uninterrupted). Hx of CVA PMFSH Active Problems Active Problems: All Active Problems PFO (patent foramen ovale) (Acute) Colon cancer screening (Acute) Multiple myeloma (Acute) Chronic constipation (Acute) CVA (cerebral vascular accident) (Acute) Past Medical History Medical History (Updated 07/27/24 @ 10:09 by Melisa Sandoval RN) Multiple myeloma On anticoagulant therapy HTN (hypertension) Vitamin D deficiency CVA (cerebral vascular accident) Family History Family History Father HTN (hypertension) Mother No problems noted. Family history of problems with anesthesia: No Surgical History Surgical History (Updated 07/25/24 @ 12:01 by Ibis Grace RN) S/P patent foramen ovale closure History of hysterectomy History of Problems with Anesthesia: No Social History Social History Patient Tobacco Use Status: Never used Tobacco Meds Allergies Allergy/AdvReac Type Severity Reaction Status Date / Time No Known Allergies Allergy Verified 06/23/24 10:36 [No Known Allergies*] Home Medications ?Medication ?Instructions ?Recorded ?Confirmed ?Last Taken ?Type amlodipine 5 mg tablet 5 mg PO QAM 01/04/24 03/06/24 01/26/24 History aspirin 81 mg tablet,delayed 81 mg PO DAILY 01/04/24 07/25/24 Unknown History release clopidogrel 75 mg tablet 75 mg PO DAILY 07/25/24 07/25/24 Unknown History Exam Height,Weight and Vital Signs: Height 5 ft 2 in Weight 70.76 kg Pertinent Lab Results Pertinent Lab Results: Laboratory Tests 06/23/24 10:45 WBC 6.0 Hgb 13.5 Hct 38.7 Plt Count 236 Sodium 136 Potassium 3.3 Chloride 107 Carbon Dioxide 23 BUN 13 Creatinine 0.78 Narrative Narrative: EKG 05/2024 [id number] Ventricular Rate: 61 BPM Atrial Rate: 61 BPM P-R Interval: 150 ms QRS Duration: 88 ms Q-T Interval: 414 ms QTC Calculation(Bazett): 416 ms P [place]: 31 degrees R [place]: 10 degrees T [place]: 5 degrees Normal sinus rhythm Possible Anterior infarct , age undetermined Abnormal ECG When compared with ECG of 15-MAR-2024 15:10, No significant change was found Confirmed by CARTER MACIAS MD ([id number]) on 05/25/2024 5:00:46 PM ECHO 05/2024 Summary The left ventricle is normal in size, mildly increased wall thickness. Overall left ventricular systolic function is normal. LVEF visually estimated at 60-65%. There are no definite wall motion abnormalities. Normal diastolic function. The right ventricle is normal in size and function. The right atrium is mildly dilated. No significant valvular abnormalities. No pericardial effusion. Comparison Comparison is made to the study of January 26, 2024. Assessment and Plan Assessment Anesthesia Assessment: Chart Reviewed Final Anesthetic Review Family History of Problems with Anesthesia: No History of Problems with Anesthesia: No
[2024-07-28 12:16] VITALS: BMI 27.8
[2024-07-28 12:22] VITALS: BP 148/83; PULSE 58; RESP 15; TEMP 36.9; O2SAT 98
[2024-07-28] MEDS: Lactated Ringers 1,000 ML 100 ML IVCONT (12:33)
--- NOTE | 2024-07-28 14:29 | MHC.SHP ---
Pre-Procedural Eval Section A - 24 Hr Update-Section A only Date of Service: 07/28/24 The patient is an INPATIENT: No The patient has been examined within 24 hours of the surgical procedure. The History & Physical has been completed within 30 days and I have reviewed it.: No Section B - Complete if H&P > 30 days Chief Complaint: Screening, GERD, constipation Relevant Family History (Specify if Yes): No Relevant Social History: None Present Medications: see Short Stay Collaborative assessment Medical History: Significant History (CVA (cerebral vascular accident), multiple myeloma) History of Previous Operations: Relevant previous surgery/procedure and date(s) (History of hysterectomy) Allergies: Allergies Allergy/AdvReac Type Severity Reaction Status Date / Time No Known Allergies Allergy Verified 07/28/24 12:06 [No Known Allergies*] Review of Systems Sugical H&P ROS: Negative: Constitution, Cardiovascular, Respiratory and Gastrointestinal Exam Surgical H&P Exam: Normal: Heart, Normal: Lungs, Normal: Extremities and Normal: Abdomen Plan Diagnosis/Plan: Unchanged I have reviewed the history and physical and performed a pertinent physical examination on my patient. No changes have occurred unless specified. Time Spent With Patient Time: Total time managing care of this patient today ____ minutes.
--- NOTE | 2024-07-28 14:50 | P.OPN-COLO_ITS ---
Colonoscopy Operative Note Operative Note Date of Service: 07/28/24 Narrative: FLEXIBLE TRANSORAL UPPER GASTROINTESTINAL ENDOSCOPY WITH BIOPSIES AND COLONOSCOPY TILL CECUM WITH BIOPSIES AND SNARE POLYPECTOMY Pre-op diagnosis: Colon cancer screening, GERD, chronic constipation Post-op diagnosis: Esophagitis, Gastritis with gastric erosions, Colon Polyps, hemorrhoids ?Endoscopist:? Natividad Lee MD Anesthesia:?MAC UPPER ENDOSCOPY Consent: Indications for the procedure and potential complications of bleeding, perforation, reaction to medications and missed diagnosis were discussed with the patient and informed consent was obtained. Instrument: Olympus GIF H 190 mid size upper endoscope Monitoring: Vital signs and clinical assessment, continuous EKG monitoring, Pulse oximetry, Carbon Dioxide monitoring and blood pressure monitoring were done throughout the procedure. Procedure: The patient was placed in the left lateral decubitis position and pre-procedure medications were administered and a bite block was placed. The endoscope was inserted into the mouth and advanced under direct vision to the third part of duodenum. A careful inspection was made as the upper endoscope was withdrawn including a retroflexed examination of the proximal stomach; Findings and interventions are described below. Findings: Larynx: Normal Esophagus: GE junction at 35 cms. Friable esophageal mucosa with linear exudates - biopsies. No Sanches's. Stomach: Moderate diffuse gastric erythema - biopsies were obtained from the antrum. Multiple 8 to 10 mm chronic appearing erosions in the antrum. Decreased fundal folds and Grade 2 flap valve on retroflexed examination of the cardia. Duodenum: Normal bulb and descending duodenum Biopsies were obtained from descending duodenum to check for celiac sprue Intervention: Biopsies as noted above COLONOSCOPY PROCEDURE NOTE Instrument: Olympus PCF H 190 L variable stiffness pediatric colonoscope Monitoring: Vital signs and clinical assessment, intermittent blood pressure monitoring, continuous EKG monitoring, Pulse oximetry and Carbon Dioxide monitoring were done throughout the procedure. Please see anesthesia flowsheet. Colon withdrawl time was 35 minutes. Procedure: The patient was placed in the left lateral decubitis position and pre-procedure medications were administered. After a digital rectal examination of the ano-rectum, the video colonoscope was inserted into the rectum and advanced through the colon to the cecum. The colonoscope was slowly withdrawn in a retrograde panoramic fashion and the colon mucosa was carefully examined including a retroflexed view of the rectum. Findings and interventions are described below. Procedure Difficulty: Colon was long and tortuous and there was recurrent loop formation Findings: Terminal Ileum: Not evaluated Cecum: Partially evaluated due to sub-optimal prep Ascending Colon: A 2.5 to 3 cms sessile polyp in the proximal AC - removed piecemeal with a hot snare. Attempts to place a hemoclip were unsuccessful due to inability to pass the clip through the channel of the colonoscope due to excessive torque. Partially evaluated due to sub-optimal prep Transverse Colon: Partially evaluated due to sub-optimal prep Descending Colon: Partially evaluated due to sub-optimal prep Sigmoid Colon: Partially evaluated due to sub-optimal prep Rectum: Partially evaluated due to sub-optimal prep Ano-rectum: Small internal hemorrhoids Colon preparation: Fair to Poor despite copious irrigation. Olmitz Bowel Preparation Scale Right colon; 1 Transverse colon: 1 Left colon; 1 (0 = Unprepared colon segment with mucosa not seen due to solid stool that cannot be cleared. 1 = Portion of mucosa of the colon segment seen, but other areas of the colon segment not well seen due to staining, residual stool and/or opaque liquid. 2 = Minor amount of residual staining, small fragments of stool and/or opaque liquid, but mucosa of colon segment seen well. 3 = Entire mucosa of colon segment seen well with no residual staining, small fragments of stool or opaque liquid) Impression and Post Procedure Diagnosis: Endoscopy Findings: ESOPHAGUS: Friable esophageal mucosa with linear exudates - biopsies. STOMACH: Gastritis and multiple gastric antral erosions DUODENUM: Normal - biopsied to check for celiac sprue Colonoscopy Findings: One large polyp was removed. A few additional smaller polysp were not removed. Small hemorrhoids on retroflexed exam. Prep was sub-optimal. Plan: Pt has a FU appointment on 08/10/[address] Lee Repeat Colonoscopy in 4 to 6 months with adult colonoscope and extended colon prep. Above findings were reviewed with the patient and relevant handouts were given and the discharge area. BIOPSIES SHOWED: A. Small bowel, biopsy: Duodenal mucosa within normal limits. B. Stomach, antrum, biopsy: Antral-type mucosa with mild chronic inactive inflammation; no Helicobacter organisms seen. C. Stomach, body, biopsy: Oxyntic mucosa with mild chronic, focally active, inflammation; no Helicobacter organisms seen. D. Esophagus, distal, biopsy: Squamous epithelium within normal limits; no inflammation seen. D. Esophagus, mid, biopsy: Squamous epithelium within normal limits; no inflammation seen. F. Esophagus, proximal, biopsy: Squamous epithelium within normal limits; no inflammation seen. G. Colon, ascending, polypectomy: Fragments of tubular adenoma; negative for high-grade dysplasia or carcinoma. Comment: Diagnostic features of eosinophilic esophagitis are not present Letter sent to the patient with biopsy results Message sent to GI personnel scheduler to schedule repeat colonoscopy in 4-6 months
[2024-07-28 15:39] VITALS: BP 153/91; PULSE 67; RESP 18; TEMP 36.1; O2SAT 97
[2024-07-28 15:55] VITALS: BP 155/81; PULSE 80; RESP 18; O2SAT 97
[2024-07-28 16:09] VITALS: BP 165/87; PULSE 64; RESP 16; TEMP 36.8; O2SAT 98
== END 2024-07-28 16:40 | disposition home or self-care (01) ==
PROVIDERS: PCP Internal Medicine Geriatric Medicine; Visit Provider Internal Medicine Gastroenterology
PROC: (CPT 45385; principal; 2024-07-28 13:50)
DX: Z12.11 Encounter for screening for malignant neoplasm of colon (principal); D12.2 Benign neoplasm of ascending colon; K64.8 Other hemorrhoids; K56.2 Volvulus; K29.70 Gastritis, unspecified, without bleeding; K25.9 Gastric ulcer, unspecified as acute or chronic, without hemorrhage or perforation; K20.90 Esophagitis, unspecified without bleeding; K21.9 Gastro-esophageal reflux disease without esophagitis; I10 Essential (primary) hypertension; Z86.73 Personal history of transient ischemic attack (TIA), and cerebral infarction without residual deficits
CPT/HCPCS: 45385; 45380; 43239; 88305; 88313; 88342; J2003; J2704

== ENCOUNTER → 2024-07-28 11:52 | Outpatient (BNV) | payer OTHER, SELFPAY | PROVIDERS: PCP Internal Medicine Geriatric Medicine; Visit Provider Internal Medicine Gastroenterology | DX: Z12.11 Encounter for screening for malignant neoplasm of colon (principal); D12.2 Benign neoplasm of ascending colon; K59.00 Constipation, unspecified; K21.00 Gastro-esophageal reflux disease with esophagitis, without bleeding; K29.60 Other gastritis without bleeding; K29.70 Gastritis, unspecified, without bleeding | CPT/HCPCS: 43239; 45385 ==

== ENCOUNTER → 2024-08-10 09:08 | Outpatient (BNVA) | payer OTHER, SELFPAY | PROVIDERS: PCP Internal Medicine Geriatric Medicine; Visit Provider Internal Medicine Gastroenterology ==

== ENCOUNTER 2024-09-25 09:48 | Day surgery (SDC) | payer OTHER, SELFPAY ==
[2024-09-21 14:46] VITALS: BMI 28.2
--- NOTE | 2024-09-25 09:55 | MHC.SHP ---
Pre-Procedural Eval Section A - 24 Hr Update-Section A only Date of Service: 09/25/24 The patient is an INPATIENT: No The patient has been examined within 24 hours of the surgical procedure. The History & Physical has been completed within 30 days and I have reviewed it.: No Section B - Complete if H&P > 30 days Chief Complaint: colon cancer screening, GERD, Relevant Family History (Specify if Yes): No Relevant Social History: None Present Medications: see Short Stay Collaborative assessment Medical History: Significant History (Multiple myeloma On anticoagulant therapy HTN (hypertension) Vitamin D deficiency CVA (cerebral vascular accident)) History of Previous Operations: Relevant previous surgery/procedure and date(s) (Hx of colonoscopy Hx of esophagogastroduodenoscopy S/P patent foramen ovale closure History of hysterectomy) Allergies: Allergies Allergy/AdvReac Type Severity Reaction Status Date / Time No Known Allergies Allergy Verified 08/10/24 09:08 [No Known Allergies*] Review of Systems Sugical H&P ROS: Negative: Constitution, Cardiovascular, Respiratory and Gastrointestinal Exam Surgical H&P Exam: Normal: Heart, Normal: Lungs, Normal: Extremities and Normal: Abdomen Plan Diagnosis/Plan: Unchanged I have reviewed the history and physical and performed a pertinent physical examination on my patient. No changes have occurred unless specified. Time Spent With Patient Time: Total time managing care of this patient today ____ minutes.
--- NOTE | 2024-09-25 10:26 | P.CONAN_ITS ---
FORMERLY [facility] Active Problems Active Problems: All Active Problems PFO (patent foramen ovale) (Acute) Colon cancer screening (Acute) Multiple myeloma (Acute) Chronic constipation (Acute) CVA (cerebral vascular accident) (Acute) Past Medical History Medical History History of transesophageal echocardiography (ZEFERINO) Multiple myeloma On anticoagulant therapy HTN (hypertension) Vitamin D deficiency CVA (cerebral vascular accident) Family History Family History Father HTN (hypertension) Mother No problems noted. Family history of problems with anesthesia: No Surgical History Surgical History Hx of colonoscopy Hx of esophagogastroduodenoscopy S/P patent foramen ovale closure History of hysterectomy History of Problems with Anesthesia: No Social History Social History Are you a primary child care provider to a significant other at home: No Do you presently have visiting nurse or other home services: No Patient Tobacco Use Status: Never used Tobacco Second Hand Smoke Exposure: No Use of substances other than those prescribed or required for medical reasons: No Have you been hit, kicked, punched, or otherwise hurt by someone within the past year? If so, by whom?: No Are you DNR?: No Advance Directives: No Advance Directives Information Provided: Yes Advance Directives on File: No Recently lost weight without trying: No Eating poorly because of decreased appetite: No Nutrition Risks: No Nutritional Risk Patient : No : No Poor oral hygiene: No Meds Allergies Allergy/AdvReac Type Severity Reaction Status Date / Time No Known Allergies Allergy Verified 08/10/24 09:08 [No Known Allergies*] Active Medications: Current Medications Lactated Ringer's (Lr) 1,000 mls @ 80 mls/hr IVCONT .[id number] WILLIE Naloxone HCl (Naloxone Hcl 0.4 Mg/Ml Vial) 0.04 mg IVPUSH Q5M PRN PRN Reason: Excessive sedation or RR < 8 Home Medications ?Medication ?Instructions ?Recorded ?Confirmed ?Last Taken ?Type amlodipine 5 mg tablet 5 mg PO QAM 01/04/24 09/25/24 09/24/24 History aspirin 81 mg tablet,delayed 81 mg PO DAILY 01/04/24 09/25/24 09/24/24 History release valsartan 40 mg tablet 40 mg PO DAILY 07/28/24 09/25/24 09/24/24 History Exam Height,Weight and Vital Signs: Height 5 ft 2 in Weight 69.853 kg Airway Mallampati Class: II TM Dist: >3cm Neck ROM: Full Heart: rrr Lungs: cta Assessment and Plan Assessment Anesthesia Assessment: Anesthesia Plan Discussed and Chart Reviewed Final Anesthetic Review Family History of Problems with Anesthesia: No History of Problems with Anesthesia: No NPO: Yes ASA Class: III Final Preanesthetic Review: No Changes in Pt Med Stat, Meds/Allgs Chart Reviewed and Consent Obtained/Reviewed Patient Risk: Intermediate Procedure Risk: Intermediate Anesthetic Plan Anesthetic Plan: MAC: Disposition: Standard PACU
[2024-09-25] MEDS: Lactated Ringers 1,000 ML 80 ML IVCONT (10:31)
--- NOTE | 2024-09-25 10:43 | HO.OPN-COLON ---
Colonoscopy Operative Note Operative Note Date of Service: 09/25/24 Narrative: FLEXIBLE TRANSORAL UPPER GASTROINTESTINAL ENDOSCOPY WITH BIOPSIES AND COLONOSCOPY TILL CECUM WITH BIOPSIES AND SNARE POLYPECTOMY Pre-op diagnosis: Surveillance for colon polyps, GERD Post-op diagnosis: Gastritis, Gastric ulcer, Colon Polyps, Diverticulosis ? Endoscopist:? Natividad Lee MD Anesthesia:?MAC UPPER ENDOSCOPY Consent: Indications for the procedure and potential complications of bleeding, perforation, reaction to medications and missed diagnosis were discussed with the patient and informed consent was obtained. Instrument: Olympus GIF H 190 mid size upper endoscope Monitoring: Vital signs and clinical assessment, continuous EKG monitoring, Pulse oximetry, Carbon Dioxide monitoring and blood pressure monitoring were done throughout the procedure. Procedure: The patient was placed in the left lateral decubitis position and pre-procedure medications were administered and a bite block was placed. The endoscope was inserted into the mouth and advanced under direct vision to the third part of duodenum. A careful inspection was made as the upper endoscope was withdrawn including a retroflexed examination of the proximal stomach; Findings and interventions are described below. Findings: Larynx: Normal Esophagus: GE junction at 35 cms. Friable esophageal mucosa with linear exudates - biopsied. No Sanches's. Stomach: Moderate diffuse gastric erythema with a 5-6 mm healing ulcer in the pre-pyloric area - biopsies were obtained from the ulcer A few healing erosions in the antrum. Decreased fundal folds and Grade 2 flap valve on retroflexed examination of the cardia. Duodenum: Normal bulb and descending duodenum Biopsies obtained from descending duodenum during previous EGD to check for celiac sprue Intervention: Biopsies as noted above COLONOSCOPY PROCEDURE NOTE Instrument: Olympus CF H 190 L variable stiffness adult colonoscope A colowrap was used for the procedure Monitoring: Vital signs and clinical assessment, intermittent blood pressure monitoring, continuous EKG monitoring, Pulse oximetry and Carbon Dioxide monitoring were done throughout the procedure. Please see anesthesia flowsheet. Colon withdrawl time was 30 minutes. Procedure: The patient was placed in the left lateral decubitis position and pre-procedure medications were administered. After a digital rectal examination of the ano-rectum, the video colonoscope was inserted into the rectum and advanced through the colon to the cecum. The colonoscope was slowly withdrawn in a retrograde panoramic fashion and the colon mucosa was carefully examined including a retroflexed view of the rectum. Findings and interventions are described below. Procedure Difficulty: without difficulty Findings: Terminal Ileum: Not evaluated Cecum: Two 4-8 mm sessile polyps - removed with a cold snare Ascending Colon: A 2 cms flat polyp in the mid AC at 60 cms. Polyp was raised with 5 cc of Eleview and removed piecemeal with a stiff hot snare. Polypectomy site was closed with 2 hemoclips and marked with Endomark Two 8-10 mm sessile polyps - removed with hot snare Transverse Colon: Normal Descending Colon: Normal Sigmoid Colon: Moderate diverticulosis Rectum: Normal Ano-rectum: Normal Colon preparation: Good after some irrigation. [place] Bowel Preparation Scale Right colon; 2 Transverse colon: 2 Left colon; 2 (0 = Unprepared colon segment with mucosa not seen due to solid stool that cannot be cleared. 1 = Portion of mucosa of the colon segment seen, but other areas of the colon segment not well seen due to staining, residual stool and/or opaque liquid. 2 = Minor amount of residual staining, small fragments of stool and/or opaque liquid, but mucosa of colon segment seen well. 3 = Entire mucosa of colon segment seen well with no residual staining, small fragments of stool or opaque liquid) Impression and Post Procedure Diagnosis: Endoscopy Findings: ESOPHAGUS: Friable esophageal mucosa with linear exudates - biopsied STOMACH: Moderate diffuse gastric erythema with a 5-6 mm healing ulcer in the pre-pyloric area - biopsies were obtained from the ulcer A few healing erosions in the antrum and decreased fundal folds DUODENUM: Normal Colonoscopy Findings: Five small to medium sized polyps were removed Moderate diverticulosis seen in the sigmoid colon Plan: Pt has a FU appointment on 10/27/[address] Lee Repeat Colonoscopy in 1 year (to check polypectomy site in the AC) if polyps are adenomatous and due to a hx of adenomatous colon polyps. Above findings were reviewed with the patient and relevant handouts were given and the discharge area. BIOPSIES SHOWED: A. Stomach, ulcer, biopsy: Antral-type mucosa within normal limits; no Helicobacter organisms seen. B. Esophagus, distal, biopsy: Squamous epithelium within normal limits; no inflammation seen. C. Cecum, polypectomies: Tubular adenomata (2); negative for high-grade dysplasia or carcinoma. D. Colon, ascending at 60 cm, polypectomies: - Fragments of tubular adenoma; negative for high-grade dysplasia or carcinoma. - Fragments of sessile serrated lesions/polyps; negative for cytologic dysplasia Letter sent with biopsy results advising repeat colonoscopy in 1 year. Patient was placed on the colonoscopy recall list.
[2024-09-25 11:27] VITALS: BP 154/89; PULSE 67; RESP 16; TEMP 36.3; O2SAT 97
[2024-09-25 11:42] VITALS: BP 165/86; PULSE 62; RESP 16; TEMP 36.3; O2SAT 100
== END 2024-09-25 12:48 | disposition home or self-care (01) ==
PROVIDERS: PCP Internal Medicine Geriatric Medicine; Visit Provider Internal Medicine Gastroenterology
PROC: (CPT 45385; principal; 2024-09-25 11:00)
DX: Z12.11 Encounter for screening for malignant neoplasm of colon (principal); Z86.0101 Personal history of adenomatous and serrated colon polyps; D12.0 Benign neoplasm of cecum; D12.2 Benign neoplasm of ascending colon; K57.30 Diverticulosis of large intestine without perforation or abscess without bleeding; K59.09 Other constipation; K21.9 Gastro-esophageal reflux disease without esophagitis; K29.50 Unspecified chronic gastritis without bleeding; K25.9 Gastric ulcer, unspecified as acute or chronic, without hemorrhage or perforation; I10 Essential (primary) hypertension; C90.00 Multiple myeloma not having achieved remission; Q21.12 Patent foramen ovale; Z86.73 Personal history of transient ischemic attack (TIA), and cerebral infarction without residual deficits; E55.9 Vitamin D deficiency, unspecified; Z79.82 Long term (current) use of aspirin; Z79.01 Long term (current) use of anticoagulants; Z79.899 Other long term (current) drug therapy; Z98.890 Other specified postprocedural states
CPT/HCPCS: 45385; 45380; 45381; 43239; 88305; 88313; 88342; J2003; J2704

== ENCOUNTER → 2024-09-25 09:48 | Outpatient (BNV) | payer OTHER, SELFPAY | PROVIDERS: PCP Internal Medicine Geriatric Medicine; Visit Provider Internal Medicine Gastroenterology | DX: Z12.11 Encounter for screening for malignant neoplasm of colon (principal); Z86.0100 Personal history of colon polyps, unspecified; D12.0 Benign neoplasm of cecum; D12.2 Benign neoplasm of ascending colon; K57.30 Diverticulosis of large intestine without perforation or abscess without bleeding; K21.9 Gastro-esophageal reflux disease without esophagitis; K25.9 Gastric ulcer, unspecified as acute or chronic, without hemorrhage or perforation; K29.70 Gastritis, unspecified, without bleeding | CPT/HCPCS: 43239; 45381; 45385 ==

== ENCOUNTER 2024-10-30 10:55 | Outpatient (REF) | payer OTHER, SELFPAY ==
--- OUTSIDE RECORDS SUMMARY | 2024-10-30 12:22 | XMS_ITS | Clinical Summary ---
Author Organization [facility] Address [address] [place] [address] Phone Care Team Providers Care Senior Systems Engineer Name Role Phone Name, Kumar CESAR Primary Care Provider [phone] Allergies No known active allergies Medications amLODIPine (NORVASC) 5 mg tablet Take 1 tablet (5 mg total) by mouth 1 (one) time each day. 01/04/20 22 Active aspirin 81 mg EC tablet Take 1 tablet (81 mg total) by mouth 1 (one) time each day. Active cholecalciferol (VITAMIN D-3) 25 mcg (1,000 unit) tablet Take 1 tablet (1,000 Units total) by mouth daily. Active cloNIDine (CATAPRES) 0.1 mg tablet Take 1 tablet (0.1 mg total) by mouth daily. 025 Discontinued fluticasone propionate (FLONASE) 50 mcg/actuation nasal spray spray/apply 1 spray in each nostril daily. 025 Discontinued HYDROCHLOROTHIAZ MARISA ORAL Take 1 tablet by mouth 1 (one) time each day. 025 Discontinued indapamide (LOZOL) 1.25 mg tablet Take 1 tablet (1.25 mg total) by mouth every morning. 025 Discontinued lenalidomide (REVLIMID) 15 mg capsule TAKE 1 CAPSULE BY MOUTH DAILY FOR 21 DAYS, THEN 7 DAYS OFF 10/05/19 24 025 Discontinued lenalidomide (REVLIMID) 15 mg capsule Take 1 capsule (15 mg total) by mouth daily Days 1-21 followed by 7 days off. 10/08/19 24 025 Discontinued loratadine (CLARITIN) 10 mg tablet Take 1 tablet (10 mg total) by mouth 1 (one) time each day. 04/15/20 18 025 Discontinued losartan (COZAAR) 50 mg tablet Take 1 tablet (50 mg total) by mouth 1 (one) time each day. 03/10/20 19 025 Discontinued methocarbamoL (ROBAXIN) 750 mg tablet Take 1 tablet (750 mg total) by mouth 4 (four) times a day. 08/06/19 18 025 Discontinued metoprolol succinate (TOPROL-XL) 25 mg 24 hr tablet Take 1 tablet (25 mg total) by mouth 1 (one) time each day. 025 Discontinued multivit-min/iro n/folic acid/K (ADULTS MULTIVITAMIN ORAL) Take 1 tablet by mouth 1 (one) time each day. 025 Discontinued olmesartan (BENICAR) 20 mg tablet Take 1 tablet (20 mg total) by mouth 1 (one) time each day. 025 Discontinued omeprazole (PriLOSEC) [address] capsule Take 1 capsule (20 mg total) by mouth 1 (one) time each day. 025 Discontinued potassium chloride (KLOR-CON M20) 20 mEq CR tablet Take 1 tablet (20 mEq total) by mouth daily. 04/08/20 21 025 Discontinued Active Problems Problem Noted Date Diagnosed Date Multiple myeloma not having achieved remission 0 01/05/2019 Encounters Date Type Department Care Team Description 10/30/2024 9:30 AM EDT Office Visit [facility] Hematology Oncology [address] [place] [phone] Anselmo Crow MD 10/30/2024 Telephone [facility] Hematology Oncology [address] [place] [phone] Anselmo Crow MD Labs Only from Last 3 Months Surgical History Surgery Date Site/Laterality Comments SECTION PROCEDURE: HISTORICAL HYSTERECTOMY PROCEDURE: HISTORICAL HYSTERECTOMY; COMMENT: for multiple fibroids CHOLECYSTECTOMY PROCEDURE: HISTORICAL CHOLECYSTECTOMY Medical History Medical History Date Comments HTN (hypertension) DX:HTN (hyper tension) Monoclonal gammopathy 01/26/2018 DX:[place] n[place] gammopathy MGUS (monoclonal gammopathy of unknown significance) 06/29/2018 DX:MGUS (monoclonal gammopat hy of unknown significance) HTN (hypertension) DX:HTN (hyper tension) MGUS (monoclonal gammopathy of unknown significance) DX:MGUS (monoclonal gammopat hy of unknown significance) Hiatal hernia with GERD DX:Hiata l hernia with GERD Allergic rhinitis DX:Allergic rh initis PFO (patent foramen ovale) DX:PF O (patent foramen ovale) Family History Relation Name Status Comments Brother Alive HTN Father Alive HTN, CHF, DM, i rregular heart beat Mother lung cancer Sister Alive Social History Tobacco Use Types Packs/Day Years Used Date Smoking Tobacco: Never Smokeless Tobacco: Never Alcohol Use Standard Drinks/Week Comments No 0 (1 standard drink = 0.6 oz pur e alcohol) Comments Unknown Sex and Gender Information Value Date Recorded Sex Assigned at Not on file Legal Sex Female 2:26 PM EST Gender Identity Not on file Sexual Orientation Not on file Obstetrics History Last Filed Vital Signs Vital Sign Reading Time Taken Comments Blood Pressure 160/87 10/30/2024 9:54 AM EDT Pulse 65 10/30/2024 9:54 AM EDT Temperature 36.4 ??C (97.5 ??F) 10/30/2024 9:54 AM ED T Respiratory Rate - - Oxygen Saturation 100% 10/30/2024 9:54 AM EDT Inhaled Oxygen Concentration - - Weight 71.2 kg (157 lb) 10/30/2024 9:54 AM EDT Height 157.5 cm (5' 2 ) 05/03/2024 9:11 AM EDT Body Mass Index 28.72 05/03/2024 9:11 AM EDT Plan of Treatment Upcoming Encounters Date Type Department Care Team (Late st Contact Info) Description 01/30/2025 1:00 PM EDT Office Visit [facility] Hematology Oncology [address] [place] [address] Anselmo Crow MD [address] [place] [address] Health Maintenance Due Date Last Done Comments Breast Cancer Screening 1974 COVID-19 Vaccine (#1) 1979 Hepatitis B Vaccines (1 of 3 - 19+ 3-dose series) 1993 Pneumococcal Vaccine: 50+ Years (1 of 2 - PCV) 1993 Pneumococcal Vaccine: Pediatrics (0 to 5 Years) and At-Risk Patients (6 to 64 Years) (1 of 2 - PCV) 1993 Zoster Vaccines (1 of 2) 1993 Cervical Cancer Screening: Pap Smear 1995 Colorectal Cancer Screening: Colonoscopy 07/09/2022 Depression Screening 07/09/2022 HIV Screening 07/09/2022 Hepatitis C Screening 07/09/2022 Social Influencers of Health Screening 07/09/2022 DTaP,Tdap,and Td Vaccines (3 - Td or Tdap) 07/11/2023 07/11/2013, 09/30/2009 Influenza Vaccine (#1) 2024 Hypertension/CHF/CAD Annual BMP Blood Test 10/26/2025 10/26/2024, 07/18/2024, 11/22/2023, Additional history exists Cholesterol Screening (Lipid Panel) 08/20/2028 08/20/2023, 08/20/2023 HIB Vaccines Aged Out No longer eligi ble based on patient's age to complete this topic HPV Vaccines Aged Out No longer eligi ble based on patient's age to complete this topic Hepatitis A Vaccines Aged Out No long er eligible based on patient's age to complete this topic IPV Vaccines Aged Out No longer eligi ble based on patient's age to complete this topic MMR Vaccines Aged Out No longer eligi ble based on patient's age to complete this topic Meningococcal ACWY Vaccine Aged Out N o longer eligible based on patient's age to complete this topic Meningococcal B Vacine Aged Out No lo nger eligible based on patient's age to complete this topic RSV Immunization Patients Under 20 months Aged Out No longer eligible based on patient's age to complete this topic Varicella Vaccines Aged Out No longer eligible based on patient's age to complete this topic Procedures Procedure Name Priority Date/Time Associated Diagnosis Comments HM ANNUAL BMP BLOOD TEST Routine 11/22/2023 LIPID PANEL Routine 08/20/2023 from Last 3 Months or Most Recently Relevant to Health Maintenance Results * Lipid panel (08/20/2023) LDL/HDL Ratio 0 Triglycerides 0 mg/dL Cholesterol 0 mg/dL HDL 0 mg/dL LDL Cholesterol 0 mg/dL Blood Venous blood specimen / Unknown Historical Provider LAB BLOOD ORDERABLES Marcie l Result from Last 3 Months or Most Recently Relevant to Health Maintenance Insurance [facility] Care Teams Senior Systems Engineer Relationship Specialty Start Date End Date Name, MD Kumar 4 [facility] DANIA Tovar PCP - General 03/31/19
--- OUTSIDE RECORDS SUMMARY | 2024-10-30 12:22 | XMS_ITS | Encounter Summary ---
Author Organization [facility] Address [address] [place] [address] Care Team Providers Care Photography Intern Name Role Phone Name, Kumar CESAR Primary Care Provider [phone] Encounter Details Date Type Department Care Team (Late st Contact Info) Description 05/03/2024 9:09 AM EDT Hospital Encounter TH HISTORIC ENCOUNTERS [facility] ONLY Anselmo Crow MD [address] [place] [phone] Social History Tobacco Use Types Packs/Day [...] and 01/05/2019 showed 80% kappa-restricted plasma cells, [id number]. Cytogenetics showed a normal karyotype. FISH studies [...] And IgG was 1375 on 08/16/2019 in [place]. An IgA was mildly depressed at 61. [...] in mid-09/2019. She was evaluated by an wheel press clerk in 11/2019. She was started on doxycycline, [...] at 1.3. ?? She presented to the [facility] on 07/31/2023 with a right-sided visual [...] and tongue paresthesias and presented to the [facility] ER on 10/05/2023. Brain CTA on 10/05/2023 [...] 1090. Other immunoglobulin levels were normal. A serumimmunofixation was negative. An SPEP showed no M [...] and tongue paresthesias and presented to the [facility] ER on 10/05/2023. A brain CTA on [...] with Dr. Loya, her Medical Oncologist in [place] and he recommended observing the patient off Revlimid. He recommended restarting Zometa every 3 months. ? I spent 30 minutes during this encounter, reviewing extensive laboratory data, performing a historyand physical, and providing education and counseling. documented in this encounter Plan of Treatment Upcoming Encounters Date Type Department Care Team (Late st Contact Info) Description 01/30/2025 1:00 PM EDT Office Visit [facility] Hematology Oncology [address] [place] [address] Anselmo Crow MD [address] [place] [phone] documented as of this encounter Procedures Procedure Name Priority Date/Time Associated Diagnosis Comments ..MISCELLANEOUS REFERENCE LAB TEST 05/03/2024 documented in this encounter Results * Miscellaneous reference lab test (05/03/2024) us Provider Onbase LAB BLOOD ORDERABLES Final Re sult documented in this encounter Visit Diagnoses Not on filedocumented in this encounter Care Teams Photography Intern Relationship Specialty Start Date End Date Name, MD Kumar [address] [place], [place] PCP - General 03/31/19 documented as of this encounter
--- OUTSIDE RECORDS SUMMARY | 2024-10-30 12:22 | XMS_ITS | Encounter Summary ---
Author Organization [facility] Address [address] [place] [address] Care Team Providers Care Card Clothier Name Role Phone NameKumar MD Primary Care Provider [phone] Lyudmila Clark PharmD Unavailable [phone] Reason for Visit * Reason Onset Date Comments Referral 09/22/2023 Encounter Details Date Type Department Care Team ([facility] st Contact Info) Description 09/22/2023 Telephone [facility] MEDICINE [address], [place] [phone] Name, MD Kumar [address] [place], [place] [phone] Referral Social History Tobacco Use Types Packs/Day Years Used Date Smoking Tobacco: Never Smokeless Tobacco: Never Alcohol Use Standard Drinks/Week Comments Never 0 (1 standard drink = 0.6 oz pur e alcohol) Depression Answer Date Recorded Patient Health Questionnaire-9 Score 0 01/20/2023 Housing Stability Answer Date Recorded What is your housing situation today? I have moshe ross 05/25/[address] you li ve. Do you have problems with any of the following? None of the above 05/25/2023 Food Insecurity Answer Date Recorded Within the past 12 months, y ou worried that your food would run out before you got money to buy more: Never True 05/25/2023 Within the past 12 months,th e food you bought just didn't last and you didn't have enough money to get more: Never True Transportation Answer Date Recorded In the past 12 months, has l ack of transportation kept you from medical appts, meetings, work or from getting things needed for daily living? No 05/25/2023 Utilities Answer Date Recorded In the past 12 months, has t he electric, gas, oil or water company threatened to shut off services in your home? No 05/25/2023 Depression Answer Date Recorded Patient Health Questionnaire-2 Score 0 01/20/2023 Comments Unknown Sex and Gender Information Value Date Recorded Sex Assigned at Female 06/01/2022 10:19 AM EDT Legal Sex Female 10:19 AM EDT Gender Identity Female 06/01/2022 10:19 AM EDT Sexual Orientation Straight 06/01/2022 10 :19 AM EDT documented as of this encounter Miscellaneous Notes * Telephone Encounter - Mando Vann RN - 09/22/2023 4:00 PM EST Return T/C for below message, as per PCP notes, She supposed to follow with cardi for outpatient potline monitor and repeat ECHO with bubble study but she does not have date yet. No answer. LVM to call back on [phone]. * Telephone Encounter - Saturnino Knight - 09/22/2023 10:38 AM EST Tc from [place] working with [facility] cardiology requesting clarification Cardiology referral. Karey is unsure if referral is for testing or a consultation. Please contact pt at [phone]. documented in this encounter Plan of Treatment Upcoming Encounters Date Type Department Care Team (Late st Contact Info) Description 12/26/2024 11:15 AM EDT Office Visit [facility] MEDICINE [address], [place] [phone] Name, MD Kumar [address] [place], [place] [phone] documented as of this encounter Goals Goal Patient Goal Type Associated Problems Recent Progress Patient-Stated? Author Blood Pressure < 140/90 Blood Pressure 174/94( 025 9:35 AM EST) No Lyudmila Clark, PharmD Record your blood pressure once per day Blood Pressure No Lyudmila Clark PharmD documented as of this encounter Visit Diagnoses Not on filedocumented in this encounter Additional Health Concerns Assessment Noted Time PHQ-9 Depression Total Score: 0 01/21/20 23 10:22 AM EDT documented as of this encounter Care Teams Card Clothier Relationship Specialty Start Date End Date Name, MD Kumar [address] [place] [address] PCP - General Family Medicine 04/05/19 Lyudmila Clark, PharmD [address] [place] [address] Pharmacist Internal Medicine 03/04/23 documented as of this encounter
--- OUTSIDE RECORDS SUMMARY | 2024-10-30 12:22 | XMS_ITS | Encounter Summary ---
Author Organization [facility] Address [address] [place] [address] Care Team Providers Care Sash Maker Name Role Phone Kumar West MD Primary Care Provider [phone] Lyudmila Clark PharmD Unavailable [phone] Reason for Visit * Reason Onset Date Comments Reschedule 09/02/2023 Encounter Details Date Type Department Care Team ([facility] st Contact Info) Description 09/02/2023 Telephone [facility] MEDICINE [address] [place], [place] [phone] Name, MD Kumar [address] [place], [place] [phone] Reschedule Social History Tobacco Use Types Packs/Day Years [...] encounter Miscellaneous Notes * Telephone Encounter - Eva Tillman - 09/02/2023 10:47 AM EST Tc from pt requesting r/s 09/21/2023 appt due to traveling. documented in this encounter Plan of Treatment Upcoming Encounters Date Type Department Care Team (Late st Contact Info) Description 12/26/2024 11:15 AM EDT Office Visit [facility] MEDICINE [address] [place] [id number] Name, MD Kumar [address] [place] [address] documented as of this encounter Goals Goal Patient Goal Type Associated Problems Recent Progress Patient-Stated? Author Blood Pressure < 140/90 Blood Pressure 174/94( 025 9:35 AM EST) No Puia, Lyudmila, PharmD Record your blood pressure once per day Blood Pressure No Puia, Lyudmila, PharmD documented as of this encounter Visit Diagnoses Not on filedocumented in this encounter Additional Health Concerns Assessment Noted Time PHQ-9 Depression Total Score: 0 01/21/20 23 10:22 AM EDT documented as of this encounter Care Teams Sash Maker Relationship Specialty Start Date End Date NameKumar MD [address] [place] [address] PCP - General Family Medicine 04/05/19 Puia, Lyudmila, PharmD [address] [place] [address] Pharmacist Internal Medicine 03/04/23 documented as of this encounter
--- OUTSIDE RECORDS SUMMARY | 2024-10-30 12:22 | XMS_ITS | Clinical Summary ---
Author Organization [employer] Address [address] [facility] 7t [place] [address] Care Team Providers Care Bi Application Developer Name Role Phone Name, Kumar CESAR Primary Care Provider [phone] Lyudmila Clark PharmD Unavailable [phone] Allergies Active Allergy Reactions Criticality Noted Date Comments Doxycycline 12/22/2019 Medications Blood Pressure kit Use once a day 1 kit 023 Active atorvastatin (Lipitor) 40 MG tabletIndications: History of lacunar cerebrovascular accident Take 1 tablet (40 mg) by mouth Once per day. 90 tablet 024 Active valsartan-hydroCHL OROthiazide (Diovan HCT) 80-12.5 MG tablet Take 1 tablet by mouth Once per day. Please discontinue the Diovan 80 since I am prescribing in combination with HCTZ 30 tablet 11 025 2025 Active amLODIPine (Norvasc) 5 MG tabletIndications: Hypertension, unspecified type TAKE 1 TABLET BY MOUTH EVERY DAY 90 tablet 3 025 Active tretinoin (Retin-A) 0.025 % cream APPLY TOPICALLY TO THE AFFECTED AREA AT BEDTIME 45 g 025 Active traZODone (Desyrel) 50 MG tablet TAKE 1/2 TABLET(25 MG) BY MOUTH AT BEDTIME 15 tablet 025 Active aspirin (Aspirin Low Dose) 81 MG EC tabletIndications: History of lacunar cerebrovascular accident TAKE 1 TABLET BY MOUTH EVERY DAY 90 tablet 025 Active aspirin (Aspirin Low Dose) 81 MG EC tabletIndications: History of lacunar cerebrovascular accident TAKE 1 TABLET BY MOUTH EVERY DAY 90 tablet 024 2024 Discontinued(R eorder (will not trigger notification to Pharmacy)) tretinoin (Retin-A) 0.025 % cream Apply topically at bedtime. 45 g 2 024 2024 Discontinued traZODone (Desyrel) 50 MG tablet Take 0.5 tablets (25 mg) by mouth at bedtime. 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 HTN (hypertension) 07/17/2022 Multiple myeloma 01/05/2019 Encounters Date Type Department Care Team Description 10/25/2024 Refill [facility] MED[facility]INE [address] [place] [address] Joan Alarcon MD 10/25/2024 Refill [facility]INE [address] [place] [address] Kumar West MD 10/25/2024 Refill [facility] MED[facility]INE [address] [place] [address] Niesha Calderon MD History of lacunar cerebrovascular accident 10/25/2024 Refill [facility]INE [address] [place] [address] Kumar West MD History of lacunar cerebrovascular accident 09/29/2024 9:15 AM EST Office Visit [facility] [address] [place] [address] Kumar West MD Hypertension, unspecified type (Primary Dx); Tubular adenoma of colon; Anxiety; Insomnia, unspecified type 09/29/2024 Abstract [facility]INE [address] [place] [address] Kumar West MD 09/26/2024 Telephone [facility] [address] [place], [place] [phone] Kumar West MD chartprep 09/25/2024 Orders Only GENERIC EXTERNAL DATA DEPARTMENT Provider, Generic External Data 08/07/2024 Abstract [facility] [address] [place] [address] Name, MD Kumar from Last 3 Months Immunizations Name Administration Dates Next Due Hep B, adult 01/04/2024(Deferred: Patient rik reynolds) Pneumococcal Conjugate PCV 20 01/04/2024(Deferre d: Patient decision) TD (adult), 2 Lf tetanus tox oid, preservative free, adsorbed 09/30/2009 Tdap 07/11/2013 Social History Tobacco Use Types Packs/Day Years Used Date Smoking Tobacco: Never Smokeless Tobacco: Never Tobacco Cessation:Counseling Given: Not Answered Alcohol Use Standard Drinks/Week Comments Never 0 (1 standard drink = 0.6 oz pur e alcohol) Depression Answer Date Recorded Patient Health Questionnaire-9 Score 0 02/02/2024 Patient Health Questionnaire-9 Score 0 02/02/2024 Last PHQ-9: Questionnaire Data Not on file 0 02/02/2024 Housing Stability Answer Date Recorded What is your housing situation today? I have moshe ross 01/26/[address] you li ve. Do you have problems with any of the following? None of the above 01/26/2024 Food Insecurity Answer Date Recorded Within the past 12 months, y ou worried that your food would run out before you got money to buy more: Never True 01/26/2024 Within the past 12 months,th e food you bought just didn't last and you didn't have enough money to get more: Never True Transportation Answer Date Recorded In the past 12 months, has l ack of transportation kept you from medical appts, meetings, work or from getting things needed for daily living? No 01/26/2024 Utilities Answer Date Recorded In the past 12 months, has t he electric, gas, oil or water company threatened to shut off services in your home? No 01/26/2024 Depression Answer Date Recorded Patient Health Questionnaire-2 Score 0 02/02/2024 Internet Access Answer Date Recorded Internet Access Q1 Yes 04/03/2024 Internet Access Q2 Not on file 04/03/2024 Comments Unknown Sex and Gender Information Value Date Recorded Sex Assigned at Female 06/01/2022 10:19 AM EDT Legal Sex Female 10:19 AM EDT Gender Identity Female 06/01/2022 10:19 AM EDT Sexual Orientation Straight 06/01/2022 10 :19 AM EDT Last Filed Vital Signs Vital Sign Reading Time Taken Comments Blood Pressure 174/94 09/29/2024 9:35 AM EST Pulse 67 09/29/2024 9:35 AM EST Temperature 37.1 ??C (98.8 ??F) 09/29/2024 9:35 AM ES T Respiratory Rate 21 09/29/2024 9:35 AM EST Oxygen Saturation 99% 09/29/2024 9:35 AM EST Inhaled Oxygen Concentration - - Weight 70.9 kg (156 lb 3.2 oz) 09/29/2024 9:35 A M EST Height 157.5 cm (5' 2 ) 09/29/2024 9:35 AM EST Body Mass Index 28.57 09/29/2024 9:35 AM EST Plan of Treatment Upcoming Encounters Date Type Department Care Team (Late st Contact Info) Description 12/26/2024 11:15 AM EDT Office Visit [facility] MED[facility]INE [address] [place] [address] Name, MD Kumar [address] [place] [address] Health Maintenance Due Date Last Done Comments CT Colonography 1974 FIT DNA/Cologuard 1975 FIT 1975 FOBT 1975 HIV Screening 1975 Sigmoidoscopy 1974 COVID-19 Vaccine (#1) 1979 Family Planning (PISQ) 1989 Hepatitis C Screening 1992 Hepatitis B Vaccines (1 of 3 - 19+ 3-dose series) 1993 Pneumococcal Vaccine: 50+ Years (1 of 2 - PCV) 1993 Zoster Vaccines (1 of 2) 1993 DTaP/Tdap/Td Vaccines (2 - T d or Tdap) 07/11/2023 07/11/2013, 09/30/2009 Influenza Vaccine (#1) 2024 SDOH Screening 01/25/2025 01/26/2024 Alcohol/Substance Use Screening 02/01/2025 02/02/2024 Depression Screening 02/01/2025 02/02/2024, 02/02/2024 Mammogram 02/08/2025 02/09/2024, 02/09/2024, 01/25/2023 Colonoscopy 09/25/2025 09/25/2024, 08/03/2024 Colorectal Cancer Screening 09/25/2025 Tobacco Screening 09/29/2025 09/29/2024 Cervical Cancer Screening 01/27/2026 Pap Smear 01/27/2026 01/27/2023, 01/23/2022 HPV/Cotest 01/23/2027 01/23/2022 Lipid Panel 08/20/2028 08/20/2023, 01/25/2023 RSV Patients and Patients Aged 60 years or older (1 - 1-dose 75+ series) 2049 HIB Vaccines Aged Out No longer eligi [...] patient's age to complete this topic Meningococcal Vaccine Aged Out No gonzalez kay eligible based on patient's age to complete this topic RSV under 20 months Aged Out No longe r eligible based on patient's age to complete this topic Rotavirus Vaccines Aged Out No longer eligible based on patient's age to complete this topic Goals Goal Patient Goal Type Associated Problems Recent Progress Patient-Stated? Author Blood Pressure < 140/90 Blood Pressure 174/94( 025 9:35 AM EST) No Puia, Lyudmila, PharmD Record your blood pressure once per day Blood Pressure No Puia, Lyudmila, PharmD Procedures Procedure Name Priority Date/Time Associated Diagnosis Comments HEMATOXYLIN AND EOSIN STAIN Routine 09/25/2024 10:41 AM EST COLONOSCOPY Routine 09/25/2024 COLONOSCOPY Routine 08/03/2024 5:26 PM EST MAMMOGRAPHY Routine 02/09/2024 LIPID PANEL, STANDARD Routine 08/20/2023 8:32 AM EST Hypertension, unspecified type Lacunar stroke (CMS/HCC) On statin therapy PAP/HPV Routine 01/27/2023 PAP/HPV Routine 01/23/2022 from Last 3 Months or Most Recently Relevant to Health Maintenance Results * Hematoxylin and Eosin Stain (09/25/2024 10:41 AM EST) 09/25/2024 10:4 1 AM EST 09/25/2024 12:07 PM EST [facility] - 09/27/2024 2:58 PM EST ----- ------- Name: Magaly Day ? Age/Sex: 49/F ? : 1975 Unit#: [id number] ?? Attend Dr: Natividad Lee MD ?Re09/25/24 ?Status: DEP SDC ? Location: HO.SSS ?Disch: ? ----- ------- SPEC : [id number] ?RECD: 09/25/24-1207 ? STATUS: ??SOUT ? REQ NUM: [id number] ? ALICIA: 09/25/24-1041 ? SUBM DR: Natividad Lee MD ? ENTERED: ??09/25/24-3 ?SP TYPE: Surgical ? OTHR DR: Kumar West MD ? ORDERED: ??HE Stain/9, Gross Micro L4/4, IHC, Special st. 2, H. pylori, AB/PAS ? Diagnosis ?? A. ??Stomach, ulcer, biopsy: ??Antral-type mucosa within normal limits; no Helicobacter ?? organisms seen. ? B. ??Esophagus, distal, biopsy: ??Squamous epithelium within normal limits; no inflammation ?? seen. ? C. ??Cecum, polypectomies: ??Tubular adenomata (2); negative for high-grade dysplasia or ?? carcinoma. ? D. ??Colon, ascending at 60 cm, polypectomies: ?- Fragments of tubular adenoma; negative for high-grade dysplasia or carcinoma. ?- Fragments of sessile serrated lesions/polyps; negative for cytologic dysplasia. ?Clinical History Pre-Op Dx: ??Colon cancer screening, GERD Post-Op Dx: Gastric ulcer, colon polyps ?Microscopic Description A-D. ??Microscopic sections examined. ??No metaplastic changes are seen, supported by AB/PAS stains (A); no Helicobacter organisms are seen, supported by H. pylori immunostain (A). ? Material Received ?? A. Gastric ulcer ?? B. Distal esophagus bx, r/o EOE ?? C. Cecal polyps ?? D. Ascending colon polyp at 60 ? Gross Description Received in four parts. Part A: ??Received in formalin labeled ?gastric ulcer? are 2 russell-pink rectangular tissue fragments measuring 0.3 and 0.4 cm, submitted in toto in a cassette labeled A. Part B: ??Received in formalin labeled ?distal esophagus bx, rule out EOE? are 2 prabhakar-white rectangular tissue fragments each measuring 0.4 cm, submitted in toto in a cassette labeled B. Part C: ??Received in formalin labeled ?cecal polyps? are 2 russell-pink irregular tissue ? CONTINUED ON NEXT PAGE ----- ------- Name: Magaly Day ? Age/Sex: 49/F ? : 1975 Unit#: [id number] ?? Attend Dr: Natividad Lee MD ?Re09/25/24 ?Status: DEP SDC ? Location: HO.SSS ?Disch: ? ----- ------- SPEC : [id number] ?RECD: 09/25/24-1207 ? STATUS: ??SOUT ? REQ NUM: [id number] ? ALICIA: 09/25/24-1041 ? SUBM DR: Natividad Lee MD ? ENTERED: ??09/25/24-3 ?SP TYPE: Surgical ? OTHR DR: Kumar West MD ? ORDERED: ??HE Stain/9, Gross Micro L4/4, IHC, Special st. 2, H. pylori, AB/PAS ? Gross Description ?(Continued) fragments measuring 0.1 and 0.15 cm, submitted in toto in a cassette labeled C. Part D: ??Received in formalin labeled ?ascending colon polyps (sic) at 60 are multiple russell, russell-pink and pink-red irregular, rectangular and papular tissue fragments ranging from 0.15 to 0.9 cm in greatest dimension and aggregating 1.0 x 1.0 x 0.3 cm, submitted in toto in cassette D1. ??Also received is a 1.3 x 1.1 x 0.25 cm rectangular fragment of russell mucosa with a central 0.9 cm broad-base russell papule. ??The resected base is inked and the specimen is sectioned and entirely submitted in a cassette labeled D2. CEDS Copies To: ?? Natividad Lee MD ?? [facility] ?? [address] ?? [place] [address] ?? [phone] ?? Name,Kumar CESAR ?? [address] ?? [place] ?? [phone] ----- ------- Signed (signature on file) Bobo Montalvo MD 09/27/24 1458 ? ----- ------- ? END OF REPORT ? us Generic External Data Provider LAB BLOOD ORDERAB LES Final Result [facility] [address] [place] [phone] * (ABNORMAL) Hm Colonoscopy (09/25/2024) Colonoscopy Abnormal(A ) Normal 09/25/2024 us Kumar West MD HEALTH MAINTENANCE Final Result * (ABNORMAL) Hm Colonoscopy (08/03/2024 5:26 PM EST) Colonoscopy Abnormal(A ) Normal 08/03/2024 5:26 PM EST us Kumar West MD HEALTH MAINTENANCE Final Result * Hm Mammography (02/09/2024) Mammogram BIRADS 1 Normal, Abnormal, BIRADS 1 , BIRADS 2 Anatomical Region Laterality Modality Other 02/09/2024 Historical Provider HEALTH MAINTENANCE Final Result * Lipid Panel, Standard (08/20/2023 8:32 AM EST) Triglycerides 58 <150 mg/dL [facility] Comment:Desirable Triglyceri de: less than 150 mg/dLBorderline High Triglyceride 150-199 mg/dLHigh Triglyceride: 200-499 mg/dLVery High Triglyceride: greater than or equal to 5OO mg/dL Cholesterol 121 <200 mg/dL [facility] Comment:Desirable Cholestero l: less than 200 mg/dLBorderline High Cholesterol: 200-239 mg/dLHigh Cholesterol: greater than 239 mg/dL LDL Cholesterol Calculated 67 <100 mg/dL [facility] Comment:Desirable LDL: less than 100 mg/dLNear Optimal/Above Optimal LDL: 110- 129 mg/dLBorderline High LDL: 130-159 mg/dLHigh LDL: 160-189 mg/dLVery High LDL: greater than or equal to 190 mg/dL HDL Cholesterol 43 >40 mg/dL [facility] Comment:Desirable HDL: great er than 40 mg/dL Note: This HDL assay may give artificially low results in patients with liver disease. Blood Venous blood specimen / Unknown 08/20/2023 8:32 AM EST 08/20/2023 11:44 AM EST us Kumar West MD LAB BLOOD ORDERABLES Final Resul t [facility] [place] [address] [phone] * Pap Smear (01/27/2023) Only the most recent of2 resultswithin the time period is included. Pap Negative for intraephithelial lesion or malignancy Negative for intraephithelial lesion or malignancy, Other Kumar West MD HEALTH MAINTENANCE Final Result from Last 3 Months or Most Recently Relevant to Health Maintenance Insurance [facility] [place] [place] [address] [facility] , [address] [place] [address] * Guarantor: Amalia Simms Magaly Account Type Relation to Patient Date of Phone Billing Address Personal/Family Self [facility] [place] [place] [address] Care Teams Bi Application Developer Relationship Specialty Start Date End Date Name, MD Kumar [address] [place] [address] PCP - General Family Medicine 04/05/19 Lyudmila Clark PharmD [address] [place] [address] Pharmacist Internal Medicine 03/04/23
--- OUTSIDE RECORDS SUMMARY | 2024-10-30 12:22 | XMS_ITS | Encounter Summary ---
Author Organization [employer] Address [address] [facility] [address] 7[address] [place] [address] Care Team Providers Care Machine Binder Stripper Name Role Phone NameKumar MD Primary Care Provider [phone] Lyudmila Clark PharmD Unavailable [phone] Reason for Visit * Reason Comments Med Refill Encounter Details Date Type Department Care Team ([facility] st Contact Info) Description 10/25/2024 Refill [facility] [address] [place], [place] [phone] Name, MD Kumar [address] [place] [address] History of lacunar cerebrovascular accident Social History Tobacco Use Types Packs/Day Years [...] AM EDT documented as of this encounter Plan of Treatment Upcoming Encounters Date Type Department Care Team (Late st Contact Info) Description 12/26/2024 11:15 AM EDT Office Visit [facility] [address] [place] [phone] Name, MD Kumar [address] [place] [address] documented as of this encounter Goals Goal Patient Goal Type Associated Problems Recent Progress Patient-Stated? Author Blood Pressure < 140/90 Blood Pressure 174/94( 025 9:35 AM EST) No Puia, Lyudmila, PharmD Record your blood pressure once per day Blood Pressure No Puia, Lyudmila, PharmD documented as of this encounter Visit Diagnoses Diagnosis History of lacunar cerebrovascular accident documented in this encounter Additional Health Concerns Assessment Noted Time PHQ-9 Depression Total Score: 0 02/02/20 24 2:43 PM EDT documented as of this encounter Care Teams Machine Binder Stripper Relationship Specialty Start Date End Date Kumar West MD [address] [place] [phone] PCP - General Family Medicine 04/05/19 Puia, Lyudmila, PharmD [address] [place] [phone] Pharmacist Internal Medicine 03/04/23 documented as of this encounter
--- OUTSIDE RECORDS SUMMARY | 2024-10-30 12:22 | XMS_ITS | Encounter Summary ---
Author Organization [facility] Address [address] [place] [address] 7t [place] [address] Care Team Providers Care Oracle Apex Developer Name Role Phone Kumar West MD Primary Care Provider [phone] Lyudmila Clark PharmD Unavailable [phone] Reason for Visit * Reason Onset Date Comments Referral 12/22/2022 Encounter Details Date Type Department Care Team ([facility] Contact Info) Description 12/22/2022 Telephone [facility] MEDICINE [address] [place] [phone] Kumar West MD [address] [place] [phone] Referral Social History Tobacco Use Types Packs/Day Years Used Date Smoking Tobacco: Never Assessed Comments Unknown Sex and Gender Information Value [...] Description 12/26/2024 11:15 AM EDT Office Visit [facility] [address] [place] [address] [phone] Kumar West MD [address] [place] [phone] documented as of this encounter Visit Diagnoses Not on filedocumented in this encounter Care Teams Oracle Apex Developer Relationship Specialty Start Date End Date Kumar West MD [address] [place] [address] PCP - General Family Medicine 04/05/19 Lyudmila Clark PharmD [address] [place] [address] Pharmacist Internal Medicine 03/04/23 documented as of this encounter
--- OUTSIDE RECORDS SUMMARY | 2024-10-30 12:22 | XMS_ITS | Encounter Summary ---
Author Organization [employer] [facility] Address [address] [place] [address] [place] [address] Care Team Providers Care High School Director Name Role Phone NameKumar MD Primary Care Provider [phone] Lyudmila Clark PharmD Unavailable [phone] Encounter Details Date Type Department Care Team (Late st Contact Info) Description [facility] [address] [place] [address] Kumar West MD [address] [place] [phone] Social History Tobacco Use Types Packs/Day Years [...] Description 12/26/2024 11:15 AM EDT Office Visit [facility] [address] [place] [address] Kumar West MD [address] [place], [place] [phone] documented as of this encounter Visit Diagnoses Not on filedocumented in this encounter Care Teams High School Director Relationship Specialty Start Date End Date Kumar West MD [address] [place] [phone] PCP - General Family Medicine 04/05/19 Lyudmila Clark, Silvia [address] [place] [phone] Pharmacist Internal Medicine 03/04/23 documented as of this encounter
--- OUTSIDE RECORDS SUMMARY | 2024-10-30 12:22 | XMS_ITS | Encounter Summary ---
Author Organization [facility] Address [address] [place] [address] Care Team Providers Care Terminologist Name Role Phone Name, Kumar CESAR Primary Care Provider [phone] Reason for Visit * Reason Onset Date Comments Labs Only 10/30/2024 Encounter Details Date Type Department Care Team (Late Contact Info) Description 10/30/[address] [facility] Hematology Oncology [address] [place] [address] Anselmo Crow MD [address] [place] [address] Labs Only Social History Tobacco Use Types Packs/Day Years [...] on file documented as of this encounter Progress Notes * Rangel Dial - 10/30/2024 10:30 AM EDT Pt is considering having labs done in the office since she will be out of work. Usually has it doneat [facility] since she works in the area. Please order electronically. Lab order has been given to pt. documented in this encounter Plan of Treatment Upcoming Encounters Date Type Department Care Team (Late Contact Info) Description 01/30/2025 1:00 PM EDT Office Visit [facility] Hematology Oncology [address] [place] [address] Anselmo Crow MD [address] [place] [address] documented as of this encounter Visit Diagnoses Not on filedocumented in this encounter Care Teams Terminologist Relationship Specialty Start Date End Date Name, MD Kumar [address] [place] [address] PCP - General 03/31/19 documented as of this encounter
--- OUTSIDE RECORDS SUMMARY | 2024-10-30 12:22 | XMS_ITS | Data Portability ---
Author Organization ROMANA bull [facility] Address [address] [place] [address] Assessment No assessment recorded. Plan of Treatment Reminders Order Date Submit Date Provider Last Modified By Organization Details Last Modified Time Details Appointments None recorded. Lab urinalysis , dipstick 2021 wilbert 05 _richard murillo, [address] [place] [address], [address], 13:57:43 test, urine 2021 wilbert 05 _richard murillo, [address] [place] [address], [place], [address], 13:57:43 culture, urine 2021 [place] [facility], [address] [place] [address], [place], [address], 20:06:18 Referral None recorded. Procedures None recorded. Surgeries None recorded. Imaging None recorded. Medication Orders Macrobid 100 mg capsule 2021 [place] [id number], [address] [facility] [place], [address], 13:57:45 Patient TargetsNo targets recorded. Patient Instructions Encounter Date Encounter Id Patient Instructions Last Modified By Organization Details Last Modified Time 07/17/2022 [id number] Urinary Tract Infection (UTI) in Women: Care Instructions [email or web address] Not available 07/17/2022 13:57:43 Patient has not taken any of her medications today. Has been sitting in our clinic for 5+ hours waiting to be seen. No HTN symptoms. Will take meds and monitor her BP as soon as she gets home. Agreeable to go to ER for any symptoms or changes. [email or web address] Not available 07/17/2022 14:04:18 Reason for Referral None Reported. Results Created Date Observation Date Name Description Value Unit Range Abnormal Flag Note LastModifiedBy Organization Detail LastModifiedTime 07/17/20 22 07/22/2022 URINE CULTU RE, ROUTI NE urine culture, routine Final report abnormal Not Available [facility] ([facility]) [address] [facility], [place], [address], 07/23/2022 06:07:22 07/17/20 22 07/22/2022 URINE CULTU RE, ROUTI NE result 1 Commen t abnormal Prote us mirab ilis/ penne ri Great er than 100,0 00 colon y formi ng units per mL Cefaz zhang <=4 ug/mL Cefaz zhang with an RITCHIE <=16 predi cts susce ptibi lity to the oral agent s cefac louise, cefdi brandy, cefpo doxim e, cefpr ozil, cefur oxime , cepha lexin , and lorac arbef when used for thera py of uncom plica davi urina ry tract infec tions due to E. coli, Klebs iella pneum oniae , and Prote us mirab ilis. Not Available [facility] ([facility]) [address] [facility], [place], [address], 07/23/2022 06:07:22 07/17/20 22 07/22/2022 URINE CULTU RE, ROUTI NE antimicrobia l susceptibili ty Commen t S = Susce ptibl e; I = Inter media te; R = Resis tant P = Posit heidi; N = Negat heidi MICS are expre ssed in micro grams per mL Antib iotic RSLT# 1 RSLT# 2 RSLT# 3 RSLT# 4 Amoxi cilli n/Cla vulan ic Acid S Ampic illin S Cefep leatha S Ceftr iaxon e S Cefur oxime S Cipro floxa guerline S Ertap enem S Genta micin S Levof loxac in S Merop enem S Nitro furan toin R Piper acill in/Ta zobac england S Tetra cycli ne R Tobra mycin S Trime thopr im/Cohen lfa S Not Available [facility] ([facility]) [address] [facility], [place], [address], 07/23/2022 06:07:22 07/17/20 22 07/17/2022 urina lysis , dipst ick Unknown Analyte Yellow Not Available [address], [place], [address], 07/17/2022 13:14:36 07/17/20 22 07/17/2022 urina lysis , dipst ick Unknown Analyte Cloudy Not Available [address], [address], 07/17/2022 13:14:36 07/17/20 22 07/17/2022 urina lysis , dipst ick Unknown Analyte Negati ve Not Available [address]tiffany [address], [place], [address], 07/17/2022 13:14:36 07/17/20 22 07/17/2022 urina lysis , dipst ick Unknown Analyte Negati ve Not Available [address]tiffany [address], [place], [address], 07/17/2022 13:14:36 07/17/20 22 07/17/2022 urina lysis , dipst ick Unknown Analyte Negati ve Not Available [address]tiffany [address], [place], [address], 07/17/2022 13:14:36 07/17/20 22 07/17/2022 urina lysis , dipst ick Unknown Analyte 1.015 Not Available richard [address], [place], [address], 07/17/2022 13:14:36 07/17/20 22 07/17/2022 urina lysis , dipst ick Unknown Analyte Trace- lysed Not Available tiffany [address], [place], [address], 07/17/2022 13:14:36 07/17/20 22 07/17/2022 urina lysis , dipst ick Unknown Analyte 7.0 Not Available [address] [place] [address], [place], [address], 07/17/2022 13:14:36 07/17/20 22 07/17/2022 urina lysis , dipst ick Unknown Analyte Negati ve Not Available tiffany [address], [place], [address], 07/17/2022 13:14:36 07/17/20 22 07/17/2022 urina lysis , dipst ick Unknown Analyte 0.2 E.U./d L Not Available [address]tiffany conley [address], [place], [address], 07/17/2022 13:14:36 07/17/20 22 07/17/2022 urina lysis , dipst ick Unknown Analyte Negati ve Not Available tiffany conley [address], [place], [address], 07/17/2022 13:14:36 07/17/20 22 07/17/2022 urina lysis , dipst ick Unknown Analyte Modera te Not Available [address]tiffany conley [address], [place], [address], 07/17/2022 13:14:36 07/17/20 22 07/17/2022 pregn shanna test, urine Unknown Analyte Normal = Negati ve Not Available [facility] [address] [place], [address], 07/17/2022 13:14:42 07/17/20 22 07/17/2022 pregn shanna test, urine Unknown Analyte negati ve Not Available [address] [facility] [address] [place], [address], 07/17/2022 13:14:42 Result Notes None recorded. Problems Name Problem SNOMED Code Status Onset Date Resolution Date Notes Provider Name and Address Organization Details Recorded Time Hypertensive disorder 92220464 Active 2021 ROMANA Sanchez [facility] 13:13:25 Multiple myeloma 527784277 Active 2021 ROMANA Sanchez [facility] 13:13:56 Problem Notes None recorded. Medical Equipment None Reported. Allergies No known drug allergies Medications Name Sig Start Date Stop Date Status Note LastModified by Organization Details LastModified Time Macrobid 100 mg capsule Take 1 capsule every 12 hours by oral route for 7 days. 022 active Not Available Not Available Not Avai lable cefuroxime axetil 500 mg tablet Take 1 tablet every 12 hours by oral route with meals for 7 days. 022 active Not Available Not Available Not Avai lable lisinopril active Not Available Not Av ailable Not Available Vitals Date Recorded Body height Body mass index (BMI) Body weight Pain severity - 0-10 verbal numeric rating [Score] - Reported Oxygen saturation Oxygen saturation in Arterial blood by Pulse oximetry Respiratory rate Heart rate Body temperature Systolic blood pressure Diastolic blood pressure Systolic blood pressure Diastolic blood pressure Provider Name and Address Organization Details Last Updated DateTime 157.48 cm 29.1 kg/m2 50706.1 9 g 6 99 % 99 % 18 /min 66 /min 97.7 [degF] 175 mm[Hg] 98 mm[Hg] 175 mm[Hg] 98 mm[Hg] NUSRAT [facility] 13:52:16 Social History Question Answer Notes LastModified by Organizat ion Details LastModified Time Tobacco Smoking Status Never Smoker ROMANA Sanchez - [facility] 07/17/2022 13:14:26 What Is Your Level Of Alcohol Consumption? None Information not available 07/17/2022 Do You Use Any Illicit Or Recreational Drugs? No Information not available 07/17/2022 Have You Recently Traveled Abroad? No [email or web address] Information not available 07/17/2022 Do You Or Have You Ever Used Any Other Forms Of Tobacco Or Nicotine? No [email or web address] Information not available 07/17/2022 Sex: Unknown Functional Status None recorded. Mental Status None recorded. Family History Relationship Description Onset Age of this Age Resolved Age Notes LastModified by Organization Details LastModified Time Father No current problems or disability [email or web address] Not available 07/17 13:13:41 Mother No current problems or disability Not available 07/17 13:13:41 Medical History No medical history recorded. Gynecological HistoryNo gynecological history recorded. Obstetrics History GPAL:G 0 P 0 0 0 0 Past Encounters Encounter ID Performer Location Encounter Start Date Encounter Closed Date Diagnosis/Indication Diagnosis SNOMED-CT Code Diagnosis ICD10 Code Diagnosis Note [id number] [address] [address] 11/30/2021 18:21:48 11/30/2021 19:41:23 [id number] [facility] [address] [place] [address] 04/01/2022 10:17:17 04/01/2022 11:01:04 [id number] ROMANA Holloway [address] [place] [address] 07/17/2022 09:16:52 07/17/2022 14:00:32 Dysuria 06493869 R30.0 Poor hyper tension control 433612209 Z78.9 FOLLOW UP WITH YOUR PRIMARY CARE PHYSICIAN TOMORROW. TAKE YOUR MEDICATION SOON YOU GET HOME, AND MONITOR YOUR BLOOD PRESSURE. IF YOU DEVELOP ANY SYMPTOMS SUCH HEADACHE, CHEST PAIN, SHORTNESS OF BREATH, GO DIRECTLY TO THE NEAREST EMERGENCY DEPARTMENT . Go to the nearest emergency department if you develop ANY new or worsening symptoms. Call 911 if you feel that you are having a medical emergency. Call your primary care physician today to set up a follow up appointmen t within one week. Not following up with your primary care physician may result in adverse health conditions . If you have any questions or concerns, please call us. Take over the counter medication s such as ibuprofen or tylenol according to package instructio ns. Do not exceed maximum dosage for age/weight . Do not take anything that you might be allergic to. Make sure to consult us or your primary care physician if you take medication s such as blood thinners or blood pressure medication s before taking over the counter medication s. The best over the counter cough medication for people with high blood pressure is Coricidin, which is available at any pharmacy without a prescripti on. Drink plenty of water. Health Concerns Section Related Observation LastModified by Organization Detai ls LastModified Time None Recorded Concern Status LastModified by Organization Details LastModified Time None Recorded Advance Directives Directive None Recorded Payers Encounter Date Sequence Insurance Name Policy Number Policy Castrejon Covered Member ID Castrejon Member ID Guarantor Name 11/30/2021 1 [facility] [id number] Magaly Holland [id number] Magaly Holland 04/01/2022 1 [facility] [id number] Magaly Holland [id number] Magaly Holland 07/17/2022 1 [facility] [id number] Magaly Holland [id number] [facility] Notes Date Note Type Note Provider Name and Address Organization Details Recorded Time 07/17/2022 text/html Urinary Complain t FemaleReported bypatient.Notes:Pt reports dysuria, frequency, urgency x 3 days. Reports she had a cold and some diarrhea last week, which is usually when she has gotten UTIs in the past. No hx of complicated UTIs. Denies vaginal sx, hematuria, back pain, abd pain, n/v/d, fever, sweats, chills. ROMANA Holloway [address] [place], [address], [place] - [facility] 07/17/2022 14:33:53 OBGyn Episode No OBEpisode recorded.
--- OUTSIDE RECORDS SUMMARY | 2024-10-30 12:22 | XMS_ITS | Encounter Summary ---
Author Organization [employer] Address [address] [place] [address] Care Team Providers Care Professor Of Early Childhood Education Name Role Phone Name, Kumar CESAR Primary Care Provider [phone] Reason for Visit * Reason Comments Follow-up Feeling great Encounter Details Date Type Department Care Team (Late st Contact Info) Description 10/30/2024 9:30 AM EDT Office Visit [facility] Hematology Oncology [address] [place] [address] Anselmo Crow MD [address] [place] [phone] Social History Tobacco Use Types Packs/Day Years [...] (157 lb) 10/30/2024 9:54 AM EDT Height - - Body Mass Index 28.72 05/03/2024 9:11 AM EDT documented in this encounter Plan of Treatment Upcoming Encounters Date Type Department Care Team (Late st Contact Info) Description 01/30/2025 1:00 PM EDT Office Visit [facility] Hematology Oncology [address] [place] [address] Anselmo Crow MD [address] [place] [address] documented as of this encounter Visit Diagnoses Not on filedocumented in this encounter Discontinued Medications Medication Sig Discontinue Reason Start Date End Da te cloNIDine (CATAPRES) 0.1 mg tablet Take 1 tablet (0.1 mg total) by mouth daily. 10/30/2024 fluticasone propionate (FLONASE) 50 mcg/actuation nasal spray spray/apply 1 spray in each nostril daily. 10/30/2024 HYDROCHLOROTHIAZIDE ORAL Take 1 tablet by mouth 1 (one) time each day. 10/30/2024 indapamide (LOZOL) 1.25 mg tablet Take 1 tablet (1.25 mg total) by mouth every morning. 10/30/2024 lenalidomide (REVLIMID) 15 mg capsule TAKE 1 CAPSULE BY MOUTH DAILY FOR 21 DAYS, THEN 7 DAYS OFF 10/05/2023 10/30/2024 lenalidomide (REVLIMID) 15 mg capsule Take 1 capsule (15 mg total) by mouth daily Days 1-21 followed by 7 days off. 10/08/2023 10/30/2024 loratadine (CLARITIN) 10 mg tablet Take 1 tablet (10 mg total) by mouth 1 (one) time each day. 04/15/2018 10/30/2024 losartan (COZAAR) 50 mg tablet Take 1 tablet (50 mg total) by mouth 1 (one) time each day. 03/10/2019 10/30/2024 methocarbamoL (ROBAXIN) 750 mg tablet Take 1 tablet (750 mg total) by mouth 4 (four) times a day. 08/06/2017 10/30/2024 metoprolol succinate (TOPROL-XL) 25 mg 24 hr tablet Take 1 tablet (25 mg total) by mouth 1 (one) time each day. 10/30/2024 multivit-min/iron/folic acid/K (ADULTS MULTIVITAMIN ORAL) Take 1 tablet by mouth 1 (one) time each day. 10/30/2024 olmesartan (BENICAR) 20 mg tablet Take 1 tablet (20 mg total) by mouth 1 (one) time each day. 10/30/2024 omeprazole (PriLOSEC) [address] capsule Take 1 capsule (20 mg total) by mouth 1 (one) time each day. 10/30/2024 potassium chloride (KLOR-CON M20) 20 mEq CR tablet Take 1 tablet (20 mEq total) by mouth daily. 04/08/2021 10/30/2024 documented as of this encounter Care Teams Professor Of Early Childhood Education Relationship Specialty Start Date End Date Name, MD Kumar [address] [place], [place] PCP - General 03/31/19 documented as of this encounter
--- OUTSIDE RECORDS SUMMARY | 2024-10-30 12:22 | XMS_ITS | Encounter Summary ---
Author Organization [employer] Address [address] [place] [address] [address] [place] [address] Care Team Providers Care Saas Architect Name Role Phone Name, Kumar CESAR Primary Care Provider [phone] Lyudmila Clark PharmD Unavailable [phone] Reason for Visit * Reason Comments Med Refill Encounter Details Date Type Department Care Team ([facility] st Contact Info) Description 10/25/2024 Refill [facility] [address] [place] [address] Niesha Calderon MD [address] [place] [address] History of lacunar cerebrovascular accident Social History [...] Description 12/26/2024 11:15 AM EDT Office Visit [facility] [address] [place] [address] NameKumar MD [address] [place] [address] documented as of this encounter Goals Goal [...] documented as of this encounter Care Teams Saas Architect Relationship Specialty Start Date End Date Kumar West MD [address] [place] [address] PCP - General Family Medicine 04/05/19 Puia, Lyudmila, PharmD [address] [place] [address] Pharmacist Internal Medicine 03/04/23 documented as of this encounter
--- OUTSIDE RECORDS SUMMARY | 2024-10-30 12:22 | XMS_ITS | Clinical Summary ---
Author Organization [facility] Address [address] [place], [place] [id number] Care Team Providers Care Patent Counsel Name Role Phone Name, Kumar CESAR Primary Care Provider [phone] Allergies No known active allergies Medications Medication Sig Dispensed Refills Start Date End Date Status HYDROCHLOROTHIAZID E PO Take 1 tablet by mouth daily. 0 Active olmesartan (BENICAR) tablet 20 mg Take 1 tablet (20 mg total) by mouth daily. 0 Active indapamide (LOZOL) 1.25 MG tablet Take 1 tablet (1.25 mg total) by mouth every morning. 0 Active metoprolol succinate (TOPROL-XL) 24 hr tablet 25 mg Take 1 tablet (25 mg total) by mouth daily. 0 Active cloNIDine (CATAPRES) tablet 0.1 mg Take 1 tablet (0.1 mg total) by mouth daily. 0 Active omeprazole (PriLOSEC) 20 MG capsule Take 1 capsule (20 mg total) by mouth daily. 0 Active cholecalciferol (VITAMIN D3) 1000 units tablet Take 1 tablet (1,000 Units total) by mouth daily. 0 Active loratadine (CLARITIN) 10 MG tablet Take 1 tablet (10 mg total) by mouth daily. 0 Active methocarbamol (ROBAXIN) 750 MG tablet Take 1 tablet (750 mg total) by mouth 4 (four) times a day. 0 Active Multiple Vitamins-Minerals (MULTIVITAMIN ADULT PO) Take 1 tablet by mouth daily. 0 Active fluticasone (FLONASE) 50 MCG/ACT nasal spray spray/apply 1 spray in each nostril daily. 0 Active losartan (COZAAR) tablet 50 mg Take 1 tablet (50 mg total) by mouth daily. 0 Active potassium chloride ER (K-DUR,KLOR-CON) tablet 20 mEq Take 1 tablet (20 mEq total) by mouth daily. 30 tablet 11 04/08/2021 Active Additional Information Patient not taking.Reported on 05/03/2024 amLODIPine (NORVASC) tablet 5 mg Take 1 tablet (5 mg total) by mouth daily. 0 01/03/2022 Active lenalidomide (Revlimid) 15 MG capsule TAKE 1 CAPSULE BY MOUTH DAILY FOR 21 DAYS, THEN 7 DAYS OFF 15 capsule 0 10/05/2023 Active Additional Information Patient not taking.Reported on 05/03/2024 lenalidomide (REVLIMID) 15 MG capsule Take 1 capsule (15 mg total) by mouth daily Days 1-21 followed by 7 days off. 21 capsule 0 10/08/2023 Active Additional Information Patient not taking.Reported on 05/03/2024 aspirin EC 81 MG tablet Take 1 tablet (81 mg total) by mouth daily. 0 Active Active Problems Problem Noted Date Diagnosed Date Multiple myeloma not having achieved remission 0 01/05/2019 Social History Tobacco Use Types Packs/Day Years Used Date Smoking Tobacco: Never Smokeless Tobacco: Never Alcohol Use Standard Drinks/Week Comments No 0 (1 standard drink = 0.6 oz pur e alcohol) Sex and Gender Information Value Date Recorded Sex Assigned at Female 05/29/2022 11:28 AM EDT Gender Identity Not on file Sexual Orientation Not on file Job Start Date Occupation Industry Not on file Not on file Not on file Last Filed Vital Signs Vital Sign Reading Time Taken Comments Blood Pressure 186/109 05/03/2024 9:11 AM EDT missed BP meds Pulse 60 05/03/2024 9:11 AM EDT Temperature 37.1 ??C (98.8 ??F) 05/03/2024 9 :11 AM EDT Respiratory Rate 16 08/04/2022 8:36 AM EST Oxygen Saturation 100% 05/03/2024 9:1 1 AM EDT Inhaled Oxygen Concentration - - Weight 70.8 kg (156 lb) 05/03/2024 9:11 AM EDT Height 157.5 cm (5' 2 ) 05/03/2024 9:11 AM EDT Body Mass Index 28.53 05/03/2024 9:11 AM EDT Plan of Treatment Health Maintenance Due Date Last Done Comments Hepatitis B Vaccines (1 of 3 - 3-dose series) 1974 Hepatitis C Screening 1974 COVID-19 Vaccine (#1) 1979 Pneumococcal Vaccine (1 of 2 - PCV) 1980 Depression Screening 1986 BMI Counseling 1992 Preventative Health Evaluation 1992 Shingrix-Zoster Vaccine (1 of 2) 1993 Cervical Cancer Screening (P ap Smear) 1995 Colon Cancer Screening (Colonoscopy) 2019 DTap / Tdap / Td (2 - Td or Tdap) 07/11/2023 013 Breast Cancer Screening (Mammogram) 2024 Influenza Vaccine (#1) 2024 RSV Ped < 20 months Aged Out No longe r eligible based on patient's age to complete this topic Insurance Payer Benefit Plan / Group Subscriber ID Effective Dates Phone Address [facility] [employer] [employer] [id number] 2021-Presen t [address] [place] [address] O Care Teams Patent Counsel Relationship Specialty Start Date End Date Name, MD Kumar [address] [facility] [address] [place] [address] PCP - General Internal Medicine 03/31/19
--- OUTSIDE RECORDS SUMMARY | 2024-10-30 12:22 | XMS_ITS | Encounter Summary ---
Author Organization [employer] Address [address] [facility] [address] [facility] [address] [place] [address] Care Team Providers Care Assistant Store Manager Sales Name Role Phone Name, Kumar CESAR Primary Care Provider [phone] Lyudmila Clark PharmD Unavailable [phone] Reason for Visit * Reason Comments Med Refill Encounter Details Date Type Department Care Team ([facility] st Contact Info) Description 10/25/2024 Refill [facility] [address] [place], [place] [phone] Joan Alarcon MD [address] [place], [place] [phone] Social History Tobacco Use Types Packs/Day Years [...] is your housing situation today? I have moseh ross 01/26/[address] you [...] 12/26/2024 11:15 AM EDT Office Visit [facility] [address] [place] [address] Kumar West MD [address] [place] [address] documented as of this encounter Goals Goal [...] documented as of this encounter Care Teams Assistant Store Manager Sales Relationship Specialty Start Date End Date Kumar West MD [address] [place] [address] PCP - General Family Medicine 04/05/19 Puia, Lyudmila, PharmD [address] [place] [address] Pharmacist Internal Medicine 03/04/23 documented as of this encounter
--- OUTSIDE RECORDS SUMMARY | 2024-10-30 12:22 | XMS_ITS | Encounter Summary ---
Author Organization [facility] Address [address] [facility] 7[address] [place] [address] Care Team Providers Care Machine Coil Assembler Name Role Phone Name, Kumar CESAR Primary Care Provider [phone] Lyudmila Clark PharmD Unavailable [phone] Encounter Details Date Type Department Care Team (Late st Contact Info) Description 09/23/2022 Orders Only [facility] [address] [place] [address] Radha Sparks LPN Social History Tobacco Use Types Packs/Day Years [...] Description 12/26/2024 11:15 AM EDT Office Visit [facility] [address] [place] [address] NameKumar MD [address] [place] [address] documented as of this encounter Visit Diagnoses Not on filedocumented in this encounter Care Teams Machine Coil Assembler Relationship Specialty Start Date End Date Kumar West MD [address] [place] [address] PCP - General Family Medicine 04/05/19 Lyudmila Clark, PharmD [address] [place] [address] Pharmacist Internal Medicine 03/04/23 documented as of this encounter
--- OUTSIDE RECORDS SUMMARY | 2024-10-30 12:22 | XMS_ITS | Encounter Summary ---
Author Organization [employer] Address [address] [facility] [address] [place] [address] Care Team Providers Care Auto Damage Trainee Name Role Phone NameKumar MD Primary Care Provider Lyudmila Clark PharmD Unavailable [phone] Reason for Visit * Reason Comments Med Refill Encounter Details Date Type Department Care Team ([facility] st Contact Info) Description 10/25/[address] [facility] [address] [place], [place] [phone] Name, MD Kumar [address] [place] [address] Social History Tobacco Use Types Packs/Day Years [...] 11:15 AM EDT Office Visit [facility] [address] [place] [address] Name, MD Kumar [address] [place] [address] documented as of this encounter Goals Goal [...] documented as of this encounter Care Teams Auto Damage Trainee Relationship Specialty Start Date End Date Name, MD Kumar [address] [place] [address] PCP - General Family Medicine 04/05/19 Puia, Lyudmlia, PharmD [address] [place] [address] Pharmacist Internal Medicine 03/04/23 documented as of this encounter
--- OUTSIDE RECORDS SUMMARY | 2024-10-30 12:22 | XMS_ITS ---
Author Organization [facility] Address [address] [place] [address] Care Team Providers Care Business Center Representative Name Role Phone Name, Kumar CESAR Primary Care Provider [phone] Active Problems Problem Noted Date Diagnosed Date Multiple myeloma not having achieved remission 0 01/05/2019 Current Oncology Plans No current plan information found. Past Plans ONCOLOGY INFUSION THERAPY Plan Name Start Date Discontinue Date Treatment Medications Discontinue Reason Plan [facility]ETA[facility] 04/14/2022 09/09/2023 Saline Flush 0.9 %sodium chloride (NS) 0.9 %zoledronic acid (ZOMETA) Therapy Complete Anselmo Crow MD ONCOLOGY TREATMENT Plan Name Start Date Discontinue Date Treatment Medications Discontinue Reason Plan Provider [facility] LENALIDOMIDE / DEXAMETHASONE (1 HR) 2 10/06/2023 acyclovir (ZOVIRAX)borte zomib (VELCADE)dexam ethasone (DECADRON)oskar lidomide (REVLIMD)potas sium chloride ERSaline Flush 0.9 %sodium chloride (NS) 0.9 % Therapy Complete - 12 of 12 cycles started Radiation Treatments * No radiation treatments are documented for this patient in [facility]. Treatments may have been administered in another system.
[2024-10-30 12:49] LABS: Anion Gap 11 (12-20); Blood Urea Nitrogen 13 mg/dL (9-16); Calcium 9.5 mg/dL (8.4-10.2); Carbon Dioxide 30 mmol/L (22-29); Chloride 102 mmol/L (96-108); Estimated Glomerular Filt Rate > 60; Glucose Random 93 mg/dL (60-115); Potassium 3.6 mmol/L (3.3-5.1); Sodium 139 mmol/L (135-145)
== END 2024-10-30 10:56 | disposition home or self-care (01) ==
LOC: HO.HHCL 10:55
PROVIDERS: Visit Provider Internal Medicine Geriatric Medicine
DX: I10 Essential (primary) hypertension (principal)
CPT/HCPCS: 36415; 80048

== ENCOUNTER 2024-12-14 14:28 | Outpatient (REF) | payer OTHER, SELFPAY ==
--- OUTSIDE RECORDS SUMMARY | 2024-12-14 15:05 | XMS_ITS | Clinical Summary ---
Author Organization [facility] Address [address] [place], [place] [id number] Care Team Providers Care Hospice Music Therapist Name Role Phone Name, Kumar CESAR Primary Care Provider [phone] Allergies No known active allergies Medications Medication [...] Group Subscriber ID Effective Dates Phone Address [facility] [id number] 2021-Presen t [address] [place] [address] O Care Teams Hospice Music Therapist Relationship Specialty Start Date End Date Name, MD Kumar [address] [facility] [address] [place] [address] PCP - General Internal Medicine 03/31/19
--- OUTSIDE RECORDS SUMMARY | 2024-12-14 15:05 | XMS_ITS | Encounter Summary ---
Author Organization [employer] Address [address] [facility] 7t [place] [address] Care Team Providers Care Booking Police Officer Name Role Phone NameKumar MD Primary Care Provider [phone] Lyudmila Clark PharmD Unavailable [phone] Reason for Visit * Reason Onset Date Comments Referral 09/22/2023 Encounter Details Date Type Department Care Team ([facility] st Contact Info) Description 09/22/2023 Telephone [facility] [address] [place], [place] [phone] Name, MD Kumar [address] [place], [place] [phone] Referral Social History Tobacco Use Types Packs/Day [...] supposed to follow with cardi for outpatient threat monitoring analyst and repeat ECHO with bubble study but she does not have date yet. No answer. LVM to call back on [phone]. * Telephone Encounter - Saturnino Knight - 09/22/2023 10:38 AM EST Tc from [place] working with [facility] cardiology requesting clarification Cardiology referral. Karey is unsure if referral is for testing or a consultation. Please contact pt at [phone]. documented in this encounter Plan of Treatment Upcoming Encounters Date Type Department Care Team (Late st Contact Info) Description 12/26/2024 11:15 AM EDT Office Visit [facility] [address] [place], [place] [phone] Name, MD Kumar [address] [place], [place] [phone] documented as of this encounter Goals Goal Patient Goal Type Associated Problems Recent Progress Patient-Stated? Author Blood Pressure < 140/90 Blood Pressure 156/88( 025 10:03 AM EDT) No PuLyudmila leonardo, PharmD Record your blood pressure once per day Blood Pressure No Lyudmila Clark, PharmD documented as of this encounter Visit Diagnoses Not on filedocumented in this encounter Additional Health Concerns Assessment Noted Time PHQ-9 Depression Total Score: 0 01/21/20 23 10:22 AM EDT documented as of this encounter Care Teams Booking Police Officer Relationship Specialty Start Date End Date Name, MD Kumar [address] [place] [address] PCP - General Family Medicine 04/05/19 Lyudmila Clark, PharmD [address] [place] [address] Pharmacist Internal Medicine 03/04/23 documented as of this encounter
--- OUTSIDE RECORDS SUMMARY | 2024-12-14 15:05 | XMS_ITS ---
Author Organization [facility] Address [address] [place] [address] Care Team Providers Care Camera Supervisor Name Role Phone Name, Kumar CESAR Primary Care Provider [phone] Active Problems Problem Noted Date Diagnosed Date Multiple myeloma not having achieved remission 0 01/05/2019 Current Oncology Plans No current plan information found. Past Plans ONCOLOGY INFUSION THERAPY Plan Name Start Date Discontinue Date Treatment Medications Discontinue Reason Plan Provider [facility]ETA[facility] 04/14/2022 09/09/2023 Saline Flush 0.9 %sodium chloride (NS) 0.9 %zoledronic acid (ZOMETA) Therapy Complete Anselmo Crow MD ONCOLOGY TREATMENT Plan Name Start Date Discontinue Date Treatment Medications Discontinue Reason Plan Provider [facility]OR[facility] / LENALIDOMIDE / DEXAMETHASONE (1 HR) 2 10/06/2023 acyclovir (ZOVIRAX)borte zomib (VELCADE)dexam ethasone (DECADRON)oskar lidomide (REVLIMD)potas sium chloride ERSaline Flush 0.9 %sodium chloride (NS) 0.9 % Therapy Complete - 12 of 12 cycles started Radiation Treatments * No radiation treatments are documented for this patient in [facility]. Treatments may have been administered in another system.
--- OUTSIDE RECORDS SUMMARY | 2024-12-14 15:05 | XMS_ITS | Encounter Summary ---
Author Organization [employer] Address [address] [facility] 7t [place] [address] Care Team Providers Care Engineering Mathematician Name Role Phone Name, Kumar CESAR Primary Care Provider [phone] Lyudmila Clark PharmD Unavailable [phone] Reason for Visit * Reason Onset Date Comments Reschedule 09/02/2023 Encounter Details Date Type Department Care Team ([facility] st Contact Info) Description 09/02/2023 Telephone [facility] [address] [place], [place] [phone] Name, MD Kumar [address] [place], [place] [phone] Reschedule Social History Tobacco Use Types Packs/Day [...] Description 12/26/2024 11:15 AM EDT Office Visit [facility] [address] [place] [phone] Name, MD Kumar [address] [place] [address] documented as of this encounter Goals Goal Patient Goal Type Associated Problems Recent Progress Patient-Stated? Author Blood Pressure < 140/90 Blood Pressure 156/88( 025 10:03 AM EDT) No Puia, Lyudmila, PharmD Record your blood pressure once per day Blood Pressure No Puia, Lyudmila, PharmD documented as of this encounter Visit Diagnoses Not on filedocumented in this encounter Additional Health Concerns Assessment Noted Time PHQ-9 Depression Total Score: 0 01/21/20 23 10:22 AM EDT documented as of this encounter Care Teams Engineering Mathematician Relationship Specialty Start Date End Date NameKumar MD [address] [place] [address] PCP - General Family Medicine 04/05/19 Puia, Lyudmila, PharmD [address] [place] [address] Pharmacist Internal Medicine 03/04/23 documented as of this encounter
--- OUTSIDE RECORDS SUMMARY | 2024-12-14 15:05 | XMS_ITS | Encounter Summary ---
Author Organization [employer] Address [address] [place] [address] Care Team Providers Care Tufting Machine Operator Name Role Phone Name, Kumar CESAR Primary Care Provider [phone] Encounter Details Date Type Department Care Team (Late st Contact Info) Description 05/03/2024 9:09 AM EDT Hospital Encounter TH HISTORIC ENCOUNTERS EASTERN CONVERSION ONLY Anselmo Crow MD [address] [place] [phone] Social History Tobacco Use Types Packs/Day [...] and 01/05/2019 showed 80% kappa-restricted plasma cells, [id number]. Cytogenetics showed a normal karyotype. FISH studies [...] And IgG was 1375 on 08/16/2019 in [place]. An IgA was mildly depressed at 61. [...] in mid-09/2019. She was evaluated by an cafeteria operator in 11/2019. She was started on doxycycline, [...] at 1.3. ?? She presented to the [facility] on 07/31/2023 with a right-sided visual defect, [...] and tongue paresthesias and presented to the [facility] ER on 10/05/2023. Brain CTA [...] and tongue paresthesias and presented to the [facility] ER on 10/05/2023. A brain [...] with Dr. Loya, her Medical Oncologist in [place] and he recommended observing the patient off Revlimid. He recommended restarting Zometa every 3 months. ? I spent 30 minutes during this encounter, reviewing extensive laboratory data, performing a historyand physical, and providing education and counseling. documented in this encounter Plan of Treatment Upcoming Encounters Date Type Department Care Team (Late st Contact Info) Description 01/30/2025 1:00 PM EDT Office Visit [facility] Hematology Oncology [address] [place] [address] Anselmo Crow MD [address] [place] [phone] documented as of this encounter Procedures Procedure Name Priority Date/Time Associated Diagnosis Comments ..MISCELLANEOUS REFERENCE LAB TEST 05/03/2024 documented in this encounter Results * Miscellaneous reference lab test (05/03/2024) us Provider Onbase LAB BLOOD ORDERABLES Final Re sult documented in this encounter Visit Diagnoses Not on filedocumented in this encounter Care Teams Tufting Machine Operator Relationship Specialty Start Date End Date Name, MD Kumar [address] [place], [place] PCP - General 03/31/19 documented as of this encounter
--- OUTSIDE RECORDS SUMMARY | 2024-12-14 15:05 | XMS_ITS | Encounter Summary ---
Author Organization [facility] Address [address] [place] [address] 7 [place] [address] Care Team Providers Care Wool Shearer Name Role Phone Kumar West MD Primary Care Provider [phone] Lyudmila Clark PharmD Unavailable [phone] Reason for Visit * Reason Onset Date Comments Referral 12/22/2022 Encounter Details Date Type Department Care Team (Late st Contact Info) Description 12/22/2022 Telephone [facility] [address] [place] [phone] Kumar West MD [address] [place] [phone] Referral Social History Tobacco Use Types Packs/Day [...] Description 12/26/2024 11:15 AM EDT Office Visit [facility] [address] [place] [phone] Kumar West MD [address] [place] [phone] documented as of this encounter Visit Diagnoses Not on filedocumented in this encounter Care Teams Wool Shearer Relationship Specialty Start Date End Date Kumar West MD [address] [place] [address] PCP - General Family Medicine 04/05/19 Lyudmila Clark, Silvia [address] [place] [address] Pharmacist Internal Medicine 03/04/23 documented as of this encounter
--- OUTSIDE RECORDS SUMMARY | 2024-12-14 15:05 | XMS_ITS | Encounter Summary ---
Author Organization [employer] Address [address] [facility] 7t [place] [address] Care Team Providers Care Manager Contracting Name Role Phone Name, Kumar CESAR Primary Care Provider [phone] Lyudmila Clark PharmD Unavailable [phone] Reason for Referral * Neurology (Routine) - Authorized Specialty Diagnoses / Procedures Referred By Contac t Referred To Contact Diagnoses Bilateral leg pain Procedures Nerve conduction test Radha Berrios DO [address] [place] [address] Phone: tel: fax: [address] Phone: tel: fax: Referral ID Status Reason Start Date Expiration Date V isits Requested Visits Authorized [id number] Authorized 12/14/2024 12/14/2025 1 1 * Neurology (Routine) - Authorized Specialty Diagnoses / Procedures Referred By Contac t Referred To Contact Diagnoses Bilateral leg pain Procedures EMG Radha Berrios DO [address] [place] [address] Phone: tel: fax: [address] Phone: tel: fax: Referral ID Status Reason Start Date Expiration Date V isits Requested Visits Authorized [id number] Authorized 12/14/2024 12/14/2025 1 1 * Imaging (Routine) - Authorized Specialty Diagnoses / Procedures Referred By Susy bryan Referred To Contact Cardiology Diagnoses Bilateral leg pain Procedures Vascular US lower extremity venous duplex bilateral Radha Berrios DO [address] [place] [address] Phone: tel: fax: [address] Phone: tel: fax: Referral ID Status Reason Start Date Expiration Date Visits Requested Visits Authorized [id number] Authorized Perform Procedure 12/14/2024 12/14/2025 1 1 Reason for Visit * Reason Comments Leg Pain Encounter Details Date Type Department Care Team (Late st Contact Info) Description 12/14/2024 9:40 AM EDT Office Visit [facility] [address] [place] [address] Radha Berrios DO [address] [place], [place] [phone] Bilateral leg pain (Primary Dx); Essential hypertension Social History Tobacco Use Types Packs/Day Years [...] AM EDT documented as of this encounter Last Filed Vital Signs Vital Sign Reading Time Taken Comments Blood Pressure 156/88 12/14/2024 10:03 AM EDT Pulse 71 12/14/2024 9:38 AM EDT Temperature 36.5 ??C (97.7 ??F) 12/14/2024 9:38 AM ED T Respiratory Rate 16 12/14/2024 9:38 AM EDT Oxygen Saturation 98% 12/14/2024 9:38 AM EDT Inhaled Oxygen Concentration - - Weight 71.7 kg (158 lb) 12/14/2024 9:38 AM EDT Height - - Body Mass Index 28.9 09/29/2024 9:35 AM EST documented in this encounter Progress Notes * Radha Berrios, DO - 12/14/2024 9:40 AM EDT SUBJECTIVE Magaly Simms is a 49 y.o. female who presents for Walk-In Visit. She presents to [place] today c/o worsening b/l leg pain. She says she is having b/l LE pain, R>L, worse at night, for the past 3 weeks or so. She describes her pain as sharp and burning and deep. She denies any numbness/tingling. She says her sx are intermittent in the daytime, but are constant at night. She denies any back pain. She denies any numbness/tingling or weakness in her LE. She says she takes IBU for sx relief, with mild improvement. She says she has painful varicose veins on her R anterior dunlap. She follows with oncology for h/o multiple myeloma, which is in remission. She says she has been Googling her sx and she is concerned and would like to have imaging performed. She says her BP is always elevated when she comes to the doctor's office. She says she checked her BP prior to coming to today's visit and it was 137/81. History provided by: Patient soil specialist used: No Leg Pain The incident occurred more than 1 week ago. There was no injury mechanism. The pain is present in the left leg and right leg. The quality of the pain is described as burning. The pain is moderate. The pain has been Fluctuating since onset. Pertinent negatives include no numbness (or tingling). Nothing aggravates the symptoms. She has tried NSAIDs for the symptoms. The treatment provided mild relief. Review of Systems Constitutional: Negative for activity change, appetite change, chills, fever and unexpected weight change. Respiratory: Negative for cough and shortness of breath. Cardiovascular: Negative for chest pain, palpitations and leg swelling. Gastrointestinal: Negative for abdominal pain, diarrhea, nausea and vomiting. Musculoskeletal: Positive for arthralgias and myalgias. Neurological: Negative for weakness, numbness (or tingling) and headaches. Patient Active Problem List Diagnosis Autologous donor of stem cells HTN (hypertension) Multiple myeloma (CMS/HCC) Vitamin D deficiency Lacunar stroke (CMS/HCC) CVA (cerebral vascular accident) (CMS/HCC) PFO (patent foramen ovale) Inguinal hernia History of hysterectomy Allergies Allergen Reactions Doxycycline OBJECTIVE Vitals: 12/14/24 0938 12/14/24 1003 BP: (!) 179/98 (!) 156/88 BP Location: Right arm Left arm Patient Position: Sitting Sitting BP Cuff Size: Adult Adult Pulse: 71 Resp: 16 Temp: 97.7 ??F (36.5 ??C) TempSrc: Temporal SpO2: 98% Weight: 158 lb (71.7 kg) Body mass index is 28.9 kg/m??. Physical Exam Constitutional: General: She is not in acute distress. Appearance: Normal appearance. Cardiovascular: Rate and Rhythm: Normal rate and regular rhythm. Pulses: Dorsalis pedis pulses are 2+ on the right side and 2+ on the left side. Posterior tibial pulses are 2+ on the right side and 2+ on the left side. Heart sounds: Normal heart sounds. No murmur heard. Comments: R calf=38cm L calf=38.5cm Pulmonary: Effort: Pulmonary effort is normal. Breath sounds: Normal breath sounds. No wheezing or rhonchi. Musculoskeletal: Right lower leg: No edema. Left lower leg: No edema. Neurological: General: No focal deficit present. Mental Status: She is alert and oriented to person, place, and time. Cranial Nerves: No cranial nerve deficit. Sensory: Sensation is intact. Motor: No weakness. Gait: Gait is intact. Psychiatric: Mood and Affect: Mood normal. Assessment/Plan Diagnoses and all orders for this visit: Bilateral leg pain Recent onset of sharp, burning pain, worse at night, ? neuropathy -referred for LE dopplers to r/o DVT given h/o multiple myeloma -referred for EMG/NCS -trial gabapentin nightly -trial diclofenac gel prn -advised contact [facility] if sx changer or worsen, she agrees with plans Essential hypertension BP elevated with nml home BP readings -cont current med regimen -cont intermittent home BP monitoring, advised contact [facility]HC if home BP readings elevated --Follow-up with PCP as scheduled or sooner prn-- Current Outpatient Medications: amLODIPine (Norvasc) 5 MG tablet, TAKE 1 TABLET BY MOUTH EVERY DAY, Disp: 90 tablet, Rfl: 3 aspirin (Aspirin Low Dose) 81 MG EC tablet, TAKE 1 TABLET BY MOUTH EVERY DAY, Disp: 90 tablet, Rfl:0 atorvastatin (Lipitor) 40 MG tablet, Take 1 tablet (40 mg) by mouth Once per day., Disp: 90 tablet,Rfl: 0 Blood Pressure kit, Use once a day, Disp: 1 kit, Rfl: 0 Diclofenac Sodium 1 % gel, Apply 2 g topically if needed in the morning, at noon, in the evening, and at bedtime (pain)., Disp: 150 g, Rfl: 3 gabapentin (Neurontin) 300 MG capsule, Take 1 capsule (300 mg) by mouth at bedtime., Disp: 30 capsule, Rfl: 3 traZODone (Desyrel) 50 MG tablet, TAKE 1/2 TABLET(25 MG) BY MOUTH AT BEDTIME, Disp: 15 tablet, Rfl:0 tretinoin (Retin-A) 0.025 % cream, APPLY TOPICALLY TO THE AFFECTED AREA AT BEDTIME, Disp: 45 g, Rfl: 0 valsartan-hydroCHLOROthiazide (Diovan HCT) 80-12.5 MG tablet, Take 1 tablet by mouth Once per day. Please discontinue the Diovan 80 since I am prescribing in combination with HCTZ, Disp: 30 tablet, Rfl: 11 Scribe Attestation: IMark, am serving as a scribe to document services personally performed by Radha Linn, based on the patient's response to questions by provider and provider's statements to me. 12/14/24 10:09 AM Physicians Attestation: IRadha DO, have reviewed the information by the scribe, Mark Echeverria, for accuracy and agree with its content. documented in this encounter Plan of Treatment Upcoming Encounters Date Type Department Care Team (Late st Contact Info) Description 12/26/2024 11:15 AM EDT Office Visit [facility] [address] [place] [phone] Name, MD Kumar [address] [place] [phone] Scheduled Orders Name Type Priority Associated Diagnoses Orde r Schedule EMG Neurology Routine Bilateral leg pain Expected: 12/14/2024 (Approximate), Expires: 12/14/2025 Nerve conduction test Neurology Routine Bilateral leg pain Expected: 12/14/2024 (Approximate), Expires: 12/14/2025 documented as of this encounter Goals Goal Patient Goal Type Associated Problems Recent Progress Patient-Stated? Author Blood Pressure < 140/90 Blood Pressure 156/88( 025 10:03 AM EDT) No Lyudmila Clark, PharmD Record your blood pressure once per day Blood Pressure No Lyudmila Clark, PharmD documented as of this encounter Visit Diagnoses Diagnosis Bilateral leg pain- Primary Pain in soft tissues of limb Essential hypertension Unspecified essential hypertension documented in this encounter Additional Health Concerns Assessment Noted Time PHQ-9 Depression Total Score: 0 02/02/20 24 2:43 PM EDT documented as of this encounter Care Teams Manager Contracting Relationship Specialty Start Date End Date Name, MD Kumar [address] [place] [address] PCP - General Family Medicine 04/05/19 Lyudmila Clark, Silvia [address] [place] [address] Pharmacist Internal Medicine 03/04/23 documented as of this encounter
--- OUTSIDE RECORDS SUMMARY | 2024-12-14 15:05 | XMS_ITS | Data Portability ---
Author Organization ROMANA Singh s [address] Address [address] [place] [address] Assessment No assessment recorded. Plan of Treatment Reminders Order Date Submit Date Provider Last Modified By Organization Details Last Modified Time Details Appointments None recorded. Lab urinalysis , dipstick 2021 wilbert 05 _richard murillo, [address] [place] [address], [address], 13:57:43 test, urine 2021 wilbert 05 _richard murillo, [address] [place] [address], [place], [address], 13:57:43 culture, urine 2021 [place] [facility], [address] [place] [address], [place], [address], 20:06:18 Referral None recorded. Procedures None recorded. Surgeries None recorded. Imaging None recorded. Medication Orders Macrobid 100 mg capsule 2021 [place] [id number], [address] [facility] [place], [address], 13:57:45 Patient TargetsNo targets recorded. Patient Instructions Encounter Date Encounter Id Patient Instructions Last Modified By Organization Details Last Modified Time 07/17/2022 [id number] Urinary Tract Infection (UTI) in Women: Care [...] routine Final report abnormal Not Available [facility] ([facility]) [address] [facility], [place], [address], 07/23/2022 06:07:22 07/17/20 22 07/22/2022 URINE CULTU [...] Prote us mirab ilis. Not Available [facility] ([facility]) [address] [facility], [place], [address], 07/23/2022 06:07:22 07/17/20 22 07/22/2022 URINE CULTU [...] thopr im/Cohen lfa S Not Available [facility] ([facility]) [address] [facility], [place], [address], 07/23/2022 06:07:22 07/17/20 22 07/17/2022 urina lysis , dipst ick Unknown Analyte Yellow Not Available [address], [place], [address], 07/17/2022 13:14:36 07/17/20 22 07/17/2022 urina lysis , dipst ick Unknown Analyte Cloudy Not Available [address], [address], 07/17/2022 13:14:36 07/17/20 22 07/17/2022 urina lysis , dipst ick Unknown Analyte Negati ve Not Available [address]tiffany [address], [place], [address], 07/17/2022 13:14:36 07/17/20 22 07/17/2022 urina lysis , dipst ick Unknown Analyte Negati ve Not Available [address], [place], [address], 07/17/2022 13:14:36 07/17/20 22 07/17/2022 urina lysis , dipst ick Unknown Analyte Negati ve Not Available [address], [place], [address], 07/17/2022 13:14:36 07/17/20 22 07/17/2022 urina lysis , dipst ick Unknown Analyte 1.015 Not Available richard [address], [place], [address], 07/17/2022 13:14:36 07/17/20 22 07/17/2022 urina lysis , dipst ick Unknown Analyte Trace- lysed Not Available tiffany [address], [place], [address], 07/17/2022 13:14:36 07/17/20 22 07/17/2022 urina lysis , dipst ick Unknown Analyte 7.0 Not Available [address] [place] [address], [place], [address], 07/17/2022 13:14:36 07/17/20 22 07/17/2022 urina lysis , dipst ick Unknown Analyte Negati ve Not Available tiffany [address], [place], [address], 07/17/2022 13:14:36 07/17/20 22 07/17/2022 urina lysis , dipst ick Unknown Analyte 0.2 E.U./d L Not Available [address] conley [address], [place], [address], 07/17/2022 13:14:36 07/17/20 22 07/17/2022 urina lysis , dipst ick Unknown Analyte Negati ve Not Available tiffany conley [address], [place], [address], 07/17/2022 13:14:36 07/17/20 22 07/17/2022 urina lysis , dipst ick Unknown Analyte Modera te Not Available [address]tiffany conley [address], [place], [address], 07/17/2022 13:14:36 07/17/20 22 07/17/2022 pregn shanna test, urine Unknown Analyte Normal = Negati ve Not Available [address] [address] [place], [address], 07/17/2022 13:14:42 07/17/20 22 07/17/2022 pregn shanna test, urine Unknown Analyte negati ve Not Available [address] [facility] [address] [place], [address], 07/17/2022 13:14:42 Result Notes None recorded. Problems Name Problem SNOMED Code Status Onset Date Resolution Date Notes Provider Name and Address Organization Details Recorded Time Hypertensive disorder 24293186 Active 2021 ROMANA Sanchez [facility] 13:13:25 Multiple myeloma 142789332 Active 2021 ROMANA Sanchez [facility] 13:13:56 Problem [...] Last Updated DateTime 157.48 cm 29.1 kg/m2 04261.1 9 g 6 99 % 99 % 18 /min 66 /min 97.7 [degF] 175 mm[Hg] 98 mm[Hg] 175 mm[Hg] 98 mm[Hg] NUSRAT [facility] 13:52:16 Social History Question Answer Notes LastModified by Organizat ion Details LastModified Time Tobacco Smoking Status Never Smoker ROMANA Sanchez - [facility] 07/17/2022 13:14:26 Have You Recently Traveled Abroad? No Information not available 07/17/2022 Sex: Unknown Functional Status Question Answer Note LastModified by Organizat ion Details LastModified Time Do you use any illicit or recreational drugs? No Information not available 07/17/2022 Do you or have you ever used any other forms of tobacco or nicotine? No [email or web address] Information not available 07/17/2022 What is your level of alcohol consumption? None [email or web address] Information not available 07/17/2022 Mental Status None recorded. Family History Relationship Description Onset Age of this Age Resolved Age Notes LastModified by Organization Details LastModified Time Father No current problems or disability Not available 07/17 13:13:41 Mother No current problems or disability [email or web address] Not available 07/17 13:13:41 Medical History No medical history recorded. Gynecological HistoryNo gynecological history recorded. Obstetrics History GPAL:G 0 P 0 0 0 0 Past Encounters Encounter ID Performer Location Encounter Start Date Encounter Closed Date Diagnosis/Indication Diagnosis SNOMED-CT Code Diagnosis ICD10 Code Diagnosis Note [id number] [address] [facility] [address] [place] [address] 11/30/2021 18:21:48 11/30/2021 19:41:23 [id number] [address] [place] [address] 04/01/2022 10:17:17 04/01/2022 11:01:04 [id number] ROMANA Holloway [address] [place] [address] 07/17/2022 09:16:52 07/17/2022 14:00:32 Dysuria 13165816 R30.0 Poor hyper tension control 879877074 Z78.9 FOLLOW UP WITH YOUR PRIMARY CARE [...] Recorded Advance Directives Directive None Recorded Payers Insurance Date Sequence Insurance Name Policy Number Policy Castrejon Covered Member ID Castrejon Member ID Guarantor Name 07/17/[address] [place] [address] [id number] Magaly Holland [id number] Magaly Holland Notes Date Note Type Note Provider Name [...] chills. ROMANA Holloway [address] [place], [address], [place] - [facility] 07/17/2022 14:33:53 OBGyn Episode No OBEpisode recorded.
--- OUTSIDE RECORDS SUMMARY | 2024-12-14 15:05 | XMS_ITS | Clinical Summary ---
Author Organization [facility] Address [address] [place] [address] Phone Care Team Providers Care Damage Adjuster Name Role Phone Name, Kumar CESAR Primary Care Provider [phone] Allergies No known active allergies Medications amLODIPine (NORVASC) 5 mg tablet Take 1 tablet (5 mg total) by mouth 1 (one) time each day. 01/03/2022 Active aspirin 81 mg EC tablet Take 1 tablet (81 mg total) by mouth 1 (one) time each day. Active cholecalciferol (VITAMIN D-3) 25 mcg (1,000 unit) tablet Take 1 tablet (1,000 Units total) by mouth daily. Active docusate sodium (COLACE) 100 mg capsule Take 1 capsule (100 mg total) by mouth every 12 (twelve) hours. 60 capsule 11/27/2024 12/28/19 25 Active polyethylene glycol (GoLYTELY) 236-22.74-6.74 -5.86 gram solution Take 4,000 mL by mouth 1 (one) time for 1 dose. 4000 mL 11/27/2024 11/28/19 25 Active Problems Problem Noted Date Diagnosed Date Multiple myeloma not having achieved remission (CMS/[facility] V24, CMS/FORMER[facility] V28) 01/05/2019 Encounters Date Type Department Care Team Description 11/27/2024 10:16 AM EDT - 11/27/2024 3:51 PM EDT Emergency [facility] Emergency [address] [place] [address] Rajan Nunez MD Abdominal pain, unspecified abdominal location (Primary Dx); Constipation, unspecified constipation type; Adnexal cyst Discharge Disposition: Home or Self Care 10/30/2024 9:30 AM EDT Office Visit [facility] Hematology Oncology [address] [place] [phone] Anselmo Crow MD Multiple myeloma not having achieved remission (CMS/HCC V24, CMS/HCC V28) (Primary Dx) 10/30/2024 Telephone [facility] Hematology Oncology [address] [place] [phone] Anselmo Crow MD Labs Only from Last [...] Sign Reading Time Taken Comments Blood Pressure 165/89 11/27/2024 3:43 PM EDT Pulse 63 11/27/2024 3:43 PM EDT Temperature 36.9 ??C (98.4 ??F) 11/27/2024 3:43 PM ED T Respiratory Rate 18 11/27/2024 3:43 PM EDT Oxygen Saturation 98% 11/27/2024 3:43 PM EDT Inhaled Oxygen Concentration - - Weight 70.8 kg (156 lb) 11/27/2024 10:10 AM EDT Height 157.5 cm (5' 2 ) 11/27/2024 10:10 AM EDT Body Mass Index 28.53 11/27/2024 10:10 AM EDT Plan of Treatment Upcoming Encounters Date Type Department Care Team (Late st Contact Info) Description 01/30/2025 1:00 PM EDT Office Visit [facility] Hematology Oncology [address] [place] [address] Anselmo Crow MD [address] [place] [address] Health Maintenance Due Date Last [...] Smear 1995 Colorectal Cancer Screening: Colonoscopy 07/09/2022 HIV Screening 07/09/2022 Hepatitis C Screening 07/09/2022 Social Influencers of Health Screening 07/09/2022 DTaP,Tdap,and Td Vaccines (3 - Td or Tdap) 07/11/2023 07/11/2013, 09/30/2009 Depression Screening 02/01/2025 02/02/2024 Influenza Vaccine (Season Ended) 2025 Hypertension/CHF/CAD Annual BMP Blood Test 11/27/2025 11/27/2024, 10/30/2024, 10/26/2024, Additional history exists Cholesterol Screening (Lipid Panel) [...] age to complete this topic Meningococcal B Vaccine Aged Out No l onger eligible based on patient's age to complete this topic RSV Immunization Patients Under 20 months Aged Out No longer eligible based on patient's age to complete this topic Varicella Vaccines Aged Out No longer eligible based on patient's age to complete this topic Procedures Procedure Name Priority Date/Time Associated Diagnosis Comments CT ABDOMEN PELVIS W CONTRAST STAT 11/27/2024 12:23 PM EDT POC , URINE DIAGNOSTIC STAT 11/27/2024 12:11 PM EDT ALANIS URINE CULTURE TUBE STAT 11/27/2024 11:07 AM EDT URINALYSIS WITH REFLEX MICROSCOPIC AND CULTURE STAT 11/27/2024 11:07 AM EDT URINALYSIS WITH REFLEX MICROSCOPIC AND CULTURE STAT 11/27/2024 11:07 AM EDT HCG, SERUM, QUALITATIVE STAT Add-on 11/27/2024 10:41 AM EDT CBC WITH AUTO DIFFERENTIAL STAT 11/27/2024 10:41 AM EDT LIPASE STAT 11/27/2024 10:41 AM EDT COMPREHENSIVE METABOLIC PANEL STAT 11/27/2024 10:41 AM EDT CBC AND DIFFERENTIAL STAT 11/27/2024 10:41 AM EDT LIPID PANEL Routine 08/20/2023 from Last 3 Months or Most Recently Relevant to Health Maintenance Results * CT Abdomen Pelvis w Contrast (11/27/2024 12:23 PM EDT) Anatomical Region Laterality Modality Body Computed Tomogra phy 11/27/2024 12:4 2 PM EDT Impressions 11/27/2024 12:[address] for acute infectious or inflammatory process. ??Prominent stool burden in the distal colon. ??7.3 cm right adnexal cyst. -------- FINAL REPORT -------- Dictated By: Jono Suggs Dictated Date: 11/27/2024 12:42 ET Assigned Physician: Jono Suggs Reviewed and Electronically Signed By: Jono Suggs Signed Date: 11/27/2024 12:50 ET Workstation ID: [id number] Transcribed By: Self Edit Transcribed Date: 11/27/2024 12:42 ET Narrative 11/27/2024 12:50 PM EDT PROCEDURE: CT ABDOMEN/PELVIS WITH CONTRAST INDICATION: Diverticulitis suspected TECHNIQUE: CT of the abdomen and pelvis following the intravenous administration of 90cc Isovue 370. Multiplanar reformats. The examination was performed utilizing dose reduction techniques. Total DLP 922 COMPARISON: ??No priors available. FINDINGS: ?? LOWER THORAX: Hypoventilatory changes at the lung bases ASD closure. HEPATOBILIARY: No focal liver lesions. Status post cholecystectomy. SPLEEN: No focal lesion. PANCREAS: No focal mass or ductal dilatation. ADRENALS: No nodules. KIDNEYS/URETERS: No hydronephrosis, stones, or solid mass. PELVIC ORGANS/BLADDER: Circumferential thickening of the bladder, correlate with urinalysis as this could be seen in cystitis. ??Adnexal cysts including a 7.3 cm simple right cyst. PERITONEUM / RETROPERITONEUM: No ascites or free air. No retroperitoneal lymphadenopathy. VESSELS: Scattered atherosclerotic calcifications throughout the aorta and its major branches. No aneurysm. GI TRACT: Prominent stool burden in the distal colon. BONES AND SOFT TISSUES: Scattered degenerative changes seen throughout the bones. Soft tissues are unremarkable. Procedure Note Jono Suggs MD - 11/27/2024 PROCEDURE: CT ABDOMEN/PELVIS WITH CONTRAST INDICATION: Diverticulitis suspected TECHNIQUE: CT of the abdomen and pelvis following the intravenousadministration of 90cc Isovue 370. Multiplanar reformats. The examinationwas performed utilizing dose reduction techniques. Total DLP 922 COMPARISON: No priors available. FINDINGS: LOWER THORAX: Hypoventilatory changes at the lung bases ASD closure. HEPATOBILIARY: No focal liver lesions. Status post cholecystectomy. SPLEEN: No focal lesion. PANCREAS: No focal mass or ductal dilatation. ADRENALS: No nodules. KIDNEYS/URETERS: No hydronephrosis, stones, or solid mass. PELVIC ORGANS/BLADDER: Circumferential thickening of the bladder,correlate with urinalysis as this could be seen in cystitis. Adnexalcysts including a 7.3 cm simple right cyst. PERITONEUM / RETROPERITONEUM: No ascites or free air. No retroperitoneallymphadenopathy. VESSELS: Scattered atherosclerotic calcifications throughout the aorta andits major branches. No aneurysm. GI TRACT: Prominent stool burden in the distal colon. BONES AND SOFT TISSUES: Scattered degenerative changes seen throughout thebones. Soft tissues are unremarkable. IMPRESSION: Negative CT for acute infectious or inflammatory process. Prominent stoolburden in the distal colon. 7.3 cm right adnexal cyst. -------- FINAL REPORT -------- Dictated By: Joon Suggs Dictated Date: 11/27/2024 12:42 ET Assigned Physician: Jono Suggs Reviewed and Electronically Signed By: Jono Suggs Signed Date: 11/27/2024 12:50 ET Workstation ID: [id number] Transcribed By: Self Edit Transcribed Date: 11/27/2024 12:42 ET Rajan B Enrique CESAR IMG CT PROCEDURES Final Result * POC , urine manually resulted (11/27/2024 12:11 PM EDT) Pathologist [facility] HCG, Ur POC Negative Negative POC hCG Int QC Pass? Yes Yes Urine Urine specimen obtained by clean catch procedure / Unknown 11/27/2024 12:11 PM EDT Rajan B Enrique CESAR POINT OF CARE TEST ENTER/EDIT O RDERABLES Final Result * (ABNORMAL) Urinalysis with reflex microscopic and culture (11/27/2024 11:07 AM EDT) Pathologist [facility] Specific [place] Urine 1.018 1.003 - 1.030 LAB URINALYSIS - AUTOMATED METHOD 11/27/2024 12:11 PM [facility] pH, Urine 8.0 5.0 - 8.0 pH LAB URINALYSIS - AUTOMATED METHOD 11/27/2024 12:11 PM [facility] Leukocytes, Urine Negative Negative LAB URINALYSIS - AUTOMATED METHOD 11/27/2024 12:11 PM [facility] Nitrite, Urine Negative Negative LAB URINALYSIS - AUTOMATED METHOD 11/27/2024 12:11 PM [facility] Protein, Urine 30(A) <=Trace mg/dL LAB URINALYSIS - AUTOMATED METHOD 11/27/2024 12:11 PM [facility] Glucose, Urine Negative Negative mg/dL LAB URINALYSIS - AUTOMATED METHOD 11/27/2024 12:11 PM [facility] Ketones, Urine Negative Negative mg/dL LAB URINALYSIS - AUTOMATED METHOD 11/27/2024 12:11 PM [facility] Urobilinogen, Urine 0.2 0.2 - 1.0 mg/dL LAB URINALYSIS - AUTOMATED METHOD 11/27/2024 12:11 PM [facility] Bilirubin, Urine Negative Negative LAB URINALYSIS - AUTOMATED METHOD 11/27/2024 12:11 PM [facility] Blood, Urine Negative Negative LAB URINALYSIS - AUTOMATED METHOD 11/27/2024 12:11 PM [facility] RBC, Urine 2.2 0 - 4 /HPF LAB URINALYSIS - AUTOMATED METHOD 11/27/2024 12:11 PM [facility] WBC, Urine 0.3 0 - 4 /HPF LAB URINALYSIS - AUTOMATED METHOD 11/27/2024 12:11 PM [facility] Squamous Epithelial, Urine 19 0 - 60 /LPF LAB URINALYSIS - AUTOMATED METHOD 11/27/2024 12:11 PM EDT [facility] Bacteria, Urine Negative Negative /HPF LAB URINALYSIS - AUTOMATED METHOD 11/27/2024 12:11 PM EDT [facility] Hyaline Casts, Urine 0.8 0 - 3 /LPF LAB URINALYSIS - AUTOMATED METHOD 11/27/2024 12:11 PM EDT [facility] Urine Urine specimen obtained by clean catch procedure / Unknown Non-blood Collection / Unknown 11/27/2024 11:07 AM EDT 11/27/2024 11:49 AM EDT Rajan Nunez MD LAB URINE ORDERABLES Final Resu lt Performing Organization Address [facility]/ZIP Co de Phone Number [facility] [address] [place] [address], [place] [phone] * Alanis urine culture tube (11/27/2024 11:07 AM EDT) Extra Tube Hold for add-ons. 11/27/2024 1:01 PM EDT [facility] Comment:Auto resulted. Urine Urine specimen obtained by clean catch procedure / Unknown Non-blood Collection / Unknown 11/27/2024 11:07 AM EDT 11/27/2024 11:49 AM EDT Rajan Nunez MD LAB URINE ORDERABLES Final Resu lt Performing Organization Address City/[facility]/ZIP Co de Phone Number [facility] [address] [place] [address], [place] [phone] * CBC auto differential (11/27/2024 10:41 AM EDT) WBC 8.9 4.8 - 10.8 K/mcL LAB HEMETOLOGY METHOD 11/27/2024 11:23 AM EDT [facility] RBC 4.50 3.80 - 4.80 M/mcL LAB HEMETOLOGY METHOD 11/27/2024 11:23 AM [facility] Hemoglobin 13.4 11.5 - 16.0 g/dL LAB HEMETOLOGY METHOD 11/27/2024 11:23 AM [facility] Hematocrit 39.7 35.0 - 47.0 % LAB HEMETOLOGY METHOD 11/27/2024 11:23 AM [facility] MCV 88.4 79.0 - 98.0 FL LAB HEMETOLOGY METHOD 11/27/2024 11:23 AM [facility] MCH 29.8 27.0 - 32.0 pcg LAB HEMETOLOGY METHOD 11/27/2024 11:23 AM [facility] MCHC 33.8 32.0 - 37.0 g/dL LAB HEMETOLOGY METHOD 11/27/2024 11:23 AM [facility] RDW 13.1 11.0 - 15.0 % LAB HEMETOLOGY METHOD 11/27/2024 11:23 AM [facility] Platelets 272 130 - 400 K/mcL LAB HEMETOLOGY METHOD 11/27/2024 11:23 AM [facility] MPV 10.5 7.0 - 11.0 FL LAB HEMETOLOGY METHOD 11/27/2024 11:23 AM [facility] NRBC 0.0 <1.0 % LAB HEMETOLOGY METHOD 11/27/2024 11:23 AM [facility] NRBC Absolute 0.00 <0.10 K/mcL LAB HEMETOLOGY METHOD 11/27/2024 11:23 AM [facility] Neutrophils Relative 62.4 % LAB HEMETOLOGY METHOD 11/27/2024 11:23 AM [facility] Lymphocytes Relative 25.6 % LAB HEMETOLOGY METHOD 11/27/2024 11:23 AM [facility] Monocytes Relative 8.2 % LAB HEMETOLOGY METHOD 11/27/2024 11:23 AM [facility] Eosinophils Relative 2.7 % LAB HEMETOLOGY METHOD 11/27/2024 11:23 AM [facility] Basophils Relative 0.8 % LAB HEMETOLOGY METHOD 11/27/2024 11:23 AM [facility] Immature Granulocytes Relative 0.3 % LAB HEMETOLOGY METHOD 11/27/2024 11:23 AM [facility] Neutrophils Absolute 5.57 1.50 - 7.00 K/mcL LAB HEMETOLOGY METHOD 11/27/2024 11:23 AM [facility] Lymphocytes Absolute 2.29 1.00 - 5.00 K/mcL LAB HEMETOLOGY METHOD 11/27/2024 11:23 AM [facility] Monocytes Absolute 0.73 0.20 - 1.00 K/mcL LAB HEMETOLOGY METHOD 11/27/2024 11:23 AM [facility] Eosinophils Absolute 0.24 0.00 - 0.50 K/mcL LAB HEMETOLOGY METHOD 11/27/2024 11:23 AM [facility] Basophils Absolute 0.07 0.00 - 0.20 K/mcL LAB HEMETOLOGY METHOD 11/27/2024 11:23 AM [facility] Immature Granulocytes Absolute 0.03 0.00 - 0.03 K/mcL LAB HEMETOLOGY METHOD 11/27/2024 11:23 AM [facility] Blood Venous blood specimen / Unknown Venipuncture / Unknown 11/27/2024 10:41 AM EDT 11/27/2024 11:09 AM EDT Rajan B Enrique CESAR LAB BLOOD ORDERABLES Final Resu lt Performing Organization Address [facility]/ZIP Co de Phone Number [facility] [address] [place] [address], * hCG, serum, qualitative (11/27/2024 10:41 AM EDT) [facility] hCG Qual Negative Negative 11/27/2024 12:10 PM EDT [facility] Blood Venous blood specimen / Unknown Venipuncture / Unknown 11/27/2024 10:41 AM EDT 11/27/2024 11:09 AM EDT us Rajan Nunez MD LAB BLOOD ORDERABLES Final Resu lt Performing Organization Address [facility] Co de Phone Number [facility] [address] [place] [address], * (ABNORMAL) Lipase (11/27/2024 10:41 AM EDT) [facility] Lipase 136(H) 13 - 75 unit/L LAB CHEMISTRY METHOD 11/27/2024 11:44 AM EDT [facility] Blood Venous blood specimen / Unknown Venipuncture / Unknown 11/27/2024 10:41 AM EDT 11/27/2024 11:09 AM EDT us Rajan Nunez MD LAB BLOOD ORDERABLES Final Resu lt Performing Organization Address [facility]/ZIP Co de Phone Number [facility] [address] [place] [address], [place] [phone] * Comprehensive metabolic panel (11/27/2024 10:41 AM EDT) [facility] Sodium 140 133 - 145 mmol/L LAB CHEMISTRY METHOD 11/27/2024 11:44 AM EDT [facility] Potassium 3.5 3.5 - 5.5 mmol/L LAB CHEMISTRY METHOD 11/27/2024 11:44 AM [facility] Chloride 104 96 - 110 mmol/L LAB CHEMISTRY METHOD 11/27/2024 11:44 AM [facility] CO2 29 21 - 32 mmol/L LAB CHEMISTRY METHOD 11/27/2024 11:44 AM [facility] Anion Gap 7 3 - 11 LAB CHEMISTRY METHOD 11/27/2024 11:44 AM [facility] Glucose 96 70 - 100 mg/dL LAB CHEMISTRY METHOD 11/27/2024 11:44 AM [facility] BUN 12 5 - 25 mg/dL LAB CHEMISTRY METHOD 11/27/2024 11:44 AM [facility] Creatinine 0.70 0.50 - 1.10 mg/dL LAB CHEMISTRY METHOD 11/27/2024 11:44 AM [facility] eGFR 106 >=60 mL/min/1. 73m2 LAB CHEMISTRY METHOD 11/27/2024 11:44 AM [facility] Comment:Calculation based on the??Chronic Kidney Disease Epidemiology Collaboration (CKD-EPI) equation refit??without adjustment for race. BUN/Creatinine Ratio 17.1 LAB CHEMISTRY METHOD 11/27/2024 11:44 AM [facility] Calcium 9.1 8.5 - 10.5 mg/dL LAB CHEMISTRY METHOD 11/27/2024 11:44 AM [facility] AST (SGOT) 14 10 - 42 unit/L LAB CHEMISTRY METHOD 11/27/2024 11:44 AM [facility] ALT (SGPT) 24 10 - 60 unit/L LAB CHEMISTRY METHOD 11/27/2024 11:44 AM [facility] Alkaline Phosphatase 56 42 - 121 unit/L LAB CHEMISTRY METHOD 11/27/2024 11:44 AM [facility] Total Protein 7.3 6.0 - 8.0 g/dL LAB CHEMISTRY METHOD 11/27/2024 11:44 AM EDT [facility] Albumin 3.9 3.2 - 5.0 g/dL LAB CHEMISTRY METHOD 11/27/2024 11:44 AM EDT [facility] Total Bilirubin 0.6 0.0 - 1.4 mg/dL LAB CHEMISTRY METHOD 11/27/2024 11:44 AM EDT [facility] Blood Venous blood specimen / Unknown Venipuncture / Unknown 11/27/2024 10:41 AM EDT 11/27/2024 11:09 AM EDT Rajan B Enrique CESAR LAB BLOOD ORDERABLES Final Resu lt [facility] [address] [place] [address], * Lipid panel (08/20/2023) LDL/HDL Ratio 0 Triglycerides 0 mg/dL Cholesterol 0 mg/dL HDL 0 mg/dL LDL Cholesterol 0 mg/dL Blood Venous blood specimen / Unknown Historical Provider LAB BLOOD ORDERABLES Marcie l Result from Last 3 Months or Most Recently Relevant to Health Maintenance Insurance [facility] Care Teams Damage Adjuster Relationship Specialty Start Date End Date Name, MD Kumar [address] [place], [place] PCP - General 03/31/19
--- OUTSIDE RECORDS SUMMARY | 2024-12-14 15:05 | XMS_ITS | Clinical Summary ---
Author Organization [employer] Address [address] [facility] 7t [place] [address] Care Team Providers Care Instrument Repair Supervisor Name Role Phone Name, Kumar CESAR Primary Care Provider [phone] Lyudmila Clark PharmD Unavailable [phone] Allergies Active Allergy Reactions Criticality Noted [...] EVERY DAY 90 tablet 3 025 Active aspirin (Aspirin Low Dose) 81 MG EC tabletIndications: History of lacunar cerebrovascular accident TAKE 1 TABLET BY MOUTH EVERY DAY 90 tablet 025 Active tretinoin (Retin-A) 0.025 % cream APPLY TOPICALLY TO THE AFFECTED AREA AT BEDTIME 45 g 025 Active traZODone (Desyrel) 50 MG tablet TAKE 1/2 TABLET(25 MG) BY MOUTH AT BEDTIME 15 tablet 025 Active gabapentin (Neurontin) 300 MG capsule Take 1 capsule (300 mg) by mouth at bedtime. 30 capsule 3 025 2025 Active Diclofenac Sodium 1 % gel Apply 2 g topically if needed in the morning, at noon, in the evening, and at bedtime (pain). 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 HTN (hypertension) 07/17/2022 Multiple myeloma 01/05/2019 Encounters Date Type Department Care Team Description 12/14/2024 9:40 AM EDT Office Visit [facility] WALK-IN CENTER [address] [place] [address] Radha Berrios DO Bilateral leg pain (Primary Dx); Essential hypertension 11/29/2024 Telephone [facility] MEDICINE [address] [place] [address] Kumar West MD 11/24/2024 Refill [facility] MEDICINE [address] [place] [address] NameKumar MD 11/24/2024 Refill [facility] MEDICINE [address] [place] [address] Joan Alarcon MD 10/25/2024 Refill [facility] MEDICINE [address] [place] [address] Joan Alarcon MD 10/25/2024 Refill [facility] MEDICINE [address] [place] [address] Kumar West MD 10/25/2024 Refill [facility] MEDICINE [address] [place] [address] Niesha Calderon MD History of lacunar cerebrovascular accident 10/25/2024 Refill [facility] MED[facility] [address] [facility] [place] [address] NameKumar MD History of lacunar cerebrovascular accident 09/29/2024 9:15 AM EST Office Visit [facility] [address] [facility] [place] [address] NameKumar MD Hypertension, unspecified type (Primary Dx); Tubular adenoma of colon; Anxiety; Insomnia, unspecified type 09/29/2024 Abstract [facility] MEDICINE [address] [facility] [place] [address] Kumar West MD 09/26/2024 Telephone [facility] CHC MED & PEDS [address] [place], [place] [phone] Kumar West MD chartprep 09/25/2024 Orders Only GENERIC EXTERNAL DATA DEPARTMENT Provider, Generic External Data from Last 3 Months Immunizations Immunization Administration Dates Next Due Hep B, adult 01/04/2024(Deferred: Patient jul) Pneumococcal Conjugate PCV 20 01/04/2024(Deferre d: Patient [...] (158 lb) 12/14/2024 9:38 AM EDT Height 157.5 cm (5' 2 ) 09/29/2024 9:35 AM EST Body Mass Index 28.9 09/29/2024 9:35 AM EST Plan of Treatment Upcoming Encounters Date Type Department Care Team (Late st Contact Info) Description 12/26/2024 11:15 AM EDT Office Visit [facility] MEDICINE [address] [place] [address] Name, MD Kumar [address] [place] [address] Health Maintenance Due Date Last Done Comments [...] 08/03/2024 Colorectal Cancer Screening 09/25/2025 Tobacco Screening 12/14/2025 12/14/2024 Cervical Cancer Screening 01/27/2026 Pap Smear 01/27/2026 [...] 156/88( 025 10:03 AM EDT) No Lyudmila Clark PharmD Record your blood pressure once per day Blood Pressure No Lyudmila Clark PharmD Procedures Procedure Name Priority Date/Time Associated Diagnosis Comments BASIC METABOLIC PANEL Routine 10/30/2024 10:57 AM EDT Hypertension, unspecified type HEMATOXYLIN AND EOSIN STAIN Routine 09/25/2024 10:41 AM EST COLONOSCOPY Routine 09/25/2024 MAMMOGRAPHY Routine 02/09/2024 LIPID PANEL, STANDARD Routine 08/20/2023 8:32 AM EST Hypertension, unspecified type Lacunar stroke (CMS/HCC) On statin therapy PAP/HPV Routine 01/27/2023 PAP/HPV Routine 01/23/2022 from Last 3 Months or Most Recently Relevant to Health Maintenance Results * (ABNORMAL) Basic Metabolic Panel (10/30/2024 10:57 AM EDT) Sodium 139 135 - 145 mmol/L [facility] Potassium 3.6 3.3 - 5.1 mmol/L [facility] Chloride 102 96 - 108 mmol/L [facility] Carbon Dioxide 30(H) 22 - 29 mmol/L [facility] Anion Gap 11(L) 12 - 20 [facility] Urea Nitrogen (BUN) 13 9 - 16 mg/dL [facility] Creatinine, Serum 0.72 0.5 - 1.4 mg/dL [facility] Estimated Glomerular Filt Rate >60 [facility] Comment:Chronic Kidney Disea se: Estimated GFR < 60 mL/min/1.54g4Mdxbyd Kidney Disease: Estimated GFR < 15 mL/min/1.73m2 Glucose 93 60 - 115 mg/dL [facility] Calcium 9.5 8.4 - 10.2 mg/dL [facility] Blood Venous blood specimen / Unknown 10/30/2024 10:57 AM EDT 10/30/2024 12:30 PM EDT us Kumar Jenna CESAR LAB BLOOD ORDERABLES Final Resul t [facility] [address] [place] [address] [phone] * Hematoxylin and Eosin Stain (09/25/2024 10:41 AM EST) 09/25/2024 10:4 1 AM EST 09/25/2024 12:07 PM EST Narrative [facility] - 09/27/2024 2:58 PM EST ----- ------- Name: Magaly Day ? Age/Sex: 49/F ? : 1975 Unit#: [id number] ?? Attend Dr: Natividad Lee MD ?Re09/25/24 ?Status: DEP SDC ? Location: HO.SSS ?Disch: ? ----- ------- SPEC : [id number] ?RECD: 09/25/24-7 ? STATUS: ??SOUT ? REQ NUM: [id number] ? ALICIA: 09/25/24-1041 ? SUBM DR: Natividad [...] ? Age/Sex: 49/F ? : 1975 Unit#: [id number] ?? Attend Dr: Natividad Lee MD ?Re09/25/24 ?Status: DEP SDC ? Location: HO.SSS ?Disch: ? ----- ------- SPEC : [id number] ?RECD: 09/25/24-1207 ? STATUS: ??SOUT ? REQ NUM: [id number] ? ALICIA: 09/25/24-1041 ? SUBM DR: Natividad [...] Copies To: ?? Natividad Lee MD ?? [facility] ?? [address] ?? [place] [address] ?? [phone] ?? Name,Kumar CESAR ?? [address] [facility] ?? [place] [address] ?? [phone] ----- ------- Signed (signature on file) Bobo Montalvo MD 09/27/24 1458 ? ----- ------- ? END OF REPORT ? Generic External Data Provider LAB BLOOD ORDERAB LES Final Result [facility] [address] [place] [address] [phone] * (ABNORMAL) Colonoscopy (09/25/2024) Colonoscopy Abnormal(A ) Normal 09/25/2024 Kumar West MD HEALTH MAINTENANCE Final Result * Mammography (02/09/2024) Mammogram BIRADS 1 Normal, Abnormal, BIRADS 1 , BIRADS 2 Anatomical Region Laterality Modality Other 02/09/2024 [facility] Provider HEALTH MAINTENANCE Final Result * Lipid Panel, Standard (08/20/2023 8:32 AM EST) Triglycerides 58 <150 mg/dL [facility] Comment:Desirable Triglyceri de: less than 150 mg/dLBorderline High Triglyceride 150-199 mg/dLHigh Triglyceride: 200-499 mg/dLVery High Triglyceride: greater than or equal to 5OO mg/dL Cholesterol 121 <200 mg/dL [facility] Comment:Desirable Cholestero l: less than 200 mg/dLBorderline High Cholesterol: 200-239 mg/dLHigh Cholesterol: greater than 239 mg/dL LDL Cholesterol Calculated 67 <100 mg/dL [facility] Comment:Desirable LDL: less than 100 mg/dLNear Optimal/Above Optimal LDL: 110- 129 mg/dLBorderline High LDL: 130-159 mg/dLHigh LDL: 160-189 mg/dLVery High LDL: greater than or equal to 190 mg/dL HDL Cholesterol 43 >40 mg/dL [facility] Comment:Desirable HDL: great er than 40 mg/dL Note: This HDL assay may give artificially low results in patients with liver disease. Blood Venous blood specimen / Unknown 08/20/2023 8:32 AM EST 08/20/2023 11:44 AM EST us Kumar West MD LAB BLOOD ORDERABLES Final Resul t [facility] [address] [place] [phone] * Hm Pap Smear (01/27/2023) Only the most recent of2 resultswithin the time period is included. Pap Negative for intraephithelial lesion or malignancy Negative for intraephithelial lesion or malignancy, Other us Kumar West MD HEALTH MAINTENANCE Final Result from Last 3 Months or Most Recently Relevant to Health Maintenance Insurance [facility] , [address] [place] [address] Care Teams Instrument Repair Supervisor Relationship Specialty Start Date End Date Name, MD Kumar [address] [place] [address] PCP - General Family Medicine 04/05/19 Lyudmila Clark, AureaD [address] [place] [address] Pharmacist Internal Medicine 03/04/23
--- OUTSIDE RECORDS SUMMARY | 2024-12-14 15:05 | XMS_ITS | Encounter Summary ---
Author Organization [employer] Address [address] [facility] [address] 7[address] [place] [address] Care Team Providers Care Student Dean Name Role Phone Name, Kumar CESAR Primary Care Provider [phone] Lyudmila Clark PharmD Unavailable [phone] Reason for Visit * Reason Comments Med Refill Encounter Details Date Type Department Care Team ([facility] st Contact Info) Description 10/25/2024 Refill [facility] MEDICINE [address] [place], [place] [phone] Name, MD Kumar [address] [place], [place] [phone] Social History Tobacco Use Types Packs/Day Years [...] Description 12/26/2024 11:15 AM EDT Office Visit [facility] MEDICINE [address] [place] [address] Name, MD Kumar [address] [place] [address] documented as of this encounter Goals Goal [...] documented as of this encounter Care Teams Student Dean Relationship Specialty Start Date End Date Name, MD Kumar [address] [place] [address] PCP - General Family Medicine 04/05/19 Puia, Lyudmila, PharmD [address] [place] [address] Pharmacist Internal Medicine 03/04/23 documented as of this encounter
--- OUTSIDE RECORDS SUMMARY | 2024-12-14 15:05 | XMS_ITS | Encounter Summary ---
Author Organization [employer] Address [address] [facility] [address] [place] [address] Care Team Providers Care Seafood Team Member Name Role Phone Name, Kumar CESAR Primary Care Provider [phone] Lyudmila Clark PharmD Unavailable [phone] Reason for Visit * Reason Comments Med Refill Encounter Details Date Type Department Care Team ([facility] st Contact Info) Description 10/25/2024 Refill [facility] MEDICINE [address] [place], [place] [phone] Joan Alarcon MD [address] [place], [place] [phone] Social History Tobacco Use Types Packs/Day Years [...] Description 12/26/2024 11:15 AM EDT Office Visit [facility] MEDICINE [address] [place] [address] Name, MD Kumar [address] [place] [address] documented as of this encounter Goals Goal [...] documented as of this encounter Care Teams Seafood Team Member Relationship Specialty Start Date End Date Name, MD Kumar [address] [place] [address] PCP - General Family Medicine 04/05/19 Puia, Lyudmila, PharmD [address] [place] [address] Pharmacist Internal Medicine 03/04/23 documented as of this encounter
--- OUTSIDE RECORDS SUMMARY | 2024-12-14 15:05 | XMS_ITS | Encounter Summary ---
Author Organization [employer] Address [address] [place] [address] 7t [place] [address] Care Team Providers Care Box Turner Name Role Phone Name, Kumar CESAR Primary Care Provider [phone] Lyudmila Clark PharmD Unavailable [phone] Encounter Details Date Type Department Care Team (Late st Contact Info) Description 09/23/2022 Orders Only [facility] CHC MED & PEDS [address] [place] [address] Radha Sparks LPN Social History Tobacco Use [...] 12/26/2024 11:15 AM EDT Office Visit [facility] MEDICINE [address] [place] [address] NameKumar MD [address] [place] [address] documented as of this encounter Visit Diagnoses Not on filedocumented in this encounter Care Teams Box Turner Relationship Specialty Start Date End Date Kumar West MD [address] [place] [address] PCP - General Family Medicine 04/05/19 Lyudmila Clark, PharmD [address] [place] [address] Pharmacist Internal Medicine 03/04/23 documented as of this encounter
--- OUTSIDE RECORDS SUMMARY | 2024-12-14 15:05 | XMS_ITS | Encounter Summary ---
Author Organization [employer] [facility] Address [address] [place] [address] 7 [address] [address] Care Team Providers Care Die Hardener Name Role Phone NameKumar MD Primary Care Provider [phone] Lyudmila Clark PharmD Unavailable [phone] Encounter Details Date Type Department Care Team (Late st Contact Info) Description [facility]/30/20[facility] [address] [place], [place] [phone] Kumar West MD [address] [place] [address] Social History Tobacco Use Types Packs/Day Years [...] Description 12/26/2024 11:15 AM EDT Office Visit [facility] MEDICINE [address] [place] [phone] Kumar West MD [address] [place], [place] [phone] documented as of this encounter Visit Diagnoses Not on filedocumented in this encounter Care Teams Die Hardener Relationship Specialty Start Date End Date NameKumar MD [address] [place] [address] [phone] PCP - General Family Medicine 04/05/19 Lyudmila Clark, Silvia [address] [place] [address] Pharmacist Internal Medicine 03/04/23 documented as of this encounter
== END 2024-12-14 14:29 | disposition home or self-care (01) ==
LOC: HO.US 14:28
PROVIDERS: PCP Internal Medicine Geriatric Medicine; Visit Provider Family Medicine
DX: M79.604 Pain in right leg (principal); M79.605 Pain in left leg
CPT/HCPCS: 93970

== ENCOUNTER → 2024-12-14 14:31 | Outpatient (BNV) | payer OTHER, SELFPAY | PROVIDERS: PCP Internal Medicine Geriatric Medicine; Visit Provider Radiology Diagnostic Radiology | DX: M79.604 Pain in right leg (principal); M79.605 Pain in left leg | CPT/HCPCS: 93970 ==

== ENCOUNTER 2025-04-24 08:37 | Outpatient (REF) | payer OTHER, SELFPAY ==
--- OUTSIDE RECORDS SUMMARY | 2024-05-03 09:09 | XMS_ITS | Encounter Summary ---
Author Organization [facility] Address [address] [place] [address] Care Team Providers Care Abstract Searcher Name Role Phone Name, Kumar CESAR Primary Care Provider [phone] Encounter Details Date Type Department Care Team (Late st Contact Info) Description 05/03/2024 9:09 AM EDT Hospital Encounter TH HISTORIC ENCOUNTERS EASTERN CONVERSION ONLY Anselmo Crow MD [address] [place] [phone] Social History Tobacco Use Types Packs/Day Years Used Date Smoking Tobacco: Never Smokeless Tobacco: Never Alcohol Use Standard Drinks/Week Comments No 0 (1 standard drink = 0.6 oz pur e alcohol) Comments Unknown Sex and Gender Information Value Date Recorded Sex Assigned at Not on file Legal Sex Female 2:26 PM EST Gender Identity Not on file Sexual Orientation Not on file documented as of this encounter Last Filed Vital Signs Vital Sign Reading Time Taken Comments Blood Pressure 186/109 05/03/2024 9:11 AM EDT Sit ting Left arm Pulse 60 05/03/2024 9:11 AM EDT Temperature - - Respiratory Rate - - Oxygen Saturation - - Inhaled Oxygen Concentration - - Weight 70.8 kg (156 lb) 05/03/2024 9:11 AM EDT Height 157.5 cm (5' 2 ) 05/03/2024 9:11 AM EDT Body Mass Index 28.53 05/03/2024 9:11 AM EDT documented in this encounter Progress Notes * Anselmo Crow MD - 05/03/2024 9:00 AM EDT Diagnosis/treatment: ?? Multiple myeloma, IgG kappa subtype. She started Revlimid/Velcade/dexamethasone on 04/18/2019. The dexamethasone was decreased from 40 mg weekly to 20 mg weekly in mid-08/2019. The Velcade was decreased to every 2 weeks in mid-01/2020. The dexamethasone was discontinued in 08/2020. The Revlimid was decreased to 15 mg in 10/2020. The Revlimid/Velcade was held starting in mid-08/2022 for planned peripheral blood stem cell collection. Revlimid 15 mg was restarted in early 03/2023. She remains on aspirin 81 mg daily. She previously received Zometa every 3 months, but declined Zometa following the 07/2022 infusion.. ?? Interval history: ?? The patient is a 49-year-old female who reported a complaint of fatigue in the afternoons to her PCP. A comprehensive metabolic panel on 01/21/2018 showed elevated protein at 9.9. An SPEP on 01/26/2018showed a M spike in the gamma region quantified at 2.8 g. A serum immunofixation revealed an IgG kappa monoclonal protein. An IgG level was at 3550 on 01/24/2018. IgA and IgM levels were normal. A urine immunofixation showed an IgG kappa monoclonal protein. A CBC on 01/19/2018 was unremarkable. The calcium was normal at 9.2. A creatinine was normal at 0.8. A skeletal survey on 02/07/2018 was unremarkable. ?? A CBC on 06/27/2018 was unremarkable. A creatinine was 0.8. A calcium was 9.3. The IgG level was stable at 3630. ?? A CBC on 12/27/2018 showed WBC 6.6, hemoglobin 11.2 with MCV 93, platelet count 269,000. A creatinine was 0.9. A calcium was 8.6. An IgG was 4820. An IgA was depressed at 52. An IgM was depressed at 22. ?? A bone marrow aspirate and biopsy and 01/05/2019 showed 80% kappa-restricted plasma cells, [id number]. Cytogenetics showed a normal karyotype. FISH studies showed deletion 17p not detected. Therewas insufficient additional material for other FISH studies. ?? She denies any new symptoms. Her previous fatigue resolved. ?? She initially tolerated Revlimid/Velcade/dexamethasone reasonably well. She reported intermittent left upper quadrant abdominal burning pain, prevented by Prilosec, on the days following dexamethasone. The dexamethasone was decreased from 40 mg weekly to 20 mg weekly in mid-08/2019 and the pain resolved. She reports occasional mild diarrhea. She reported intermittent mild burning paresthesias in her fingertips and toes during 1 week in 05/2019, which resolved and has not recurred. ?? A CBC on 08/07/2019 showed a WBC 8.7, hemoglobin 13.7 with MCV 90, and platelet count 214,000. ?? An AST was mildly elevated at 54 and ALT mildly elevated at 71 on 06/26/2019. The transaminases normalized on 07/10/2019. ?? An IgG was 1860 in 05/15/2019. An IgG was 1850 on 05/29/2019. ?? An IgG was 1590 on 06/26/2019. An IgG was 1560 on 07/10/2019. An IgG was 1360 on 08/07/2019. ?? And IgG was 1375 on 08/16/2019 in [place]. An IgA was mildly depressed at 61. An IgM was mildly suppressed at 30. A serum immunofixation showed a IgG kappa monoclonal protein. An SPEP showed an M spikeof 1.01. ?? An IgG was 1170 on 09/18/2019. An IgG was 1150 on 11/27/2019. ?? An IgG was 1190 on 12/11/2019. A serum immunofixation showed an IgG kappa monoclonal protein. A serum kappa/lambda light chain ratio was normal at 1.4. ?? An IgG level was 1150 on 01/08/2020. A serum immunofixation showed a IgG kappa monoclonal protein. A serum kappa/lambda light chain ratio was normal at 1.6. ?? An IgG level was 855 on 03/18/2020. A serum immunofixation showed a IgG kappa monoclonal protein. A serum kappa/lambda light chain ratio was normal at 1.6. ?? A skeletal survey in 03/26/2020 showed several subcentimeter lytic lesions in the calvarium and a solitary 0.6 cm lucent lesion in the right posterior iliac bone. ?? A bone marrow aspirate and biopsy 04/03/2020 showed 1-2% polyclonal plasma cells. A flow cytometry study showed plasma cells comprising 0.03% of marrow cells. Cytogenetics were normal. A FISH panel wasnormal. ?? An IgG level was 921 on 05/13/2020. A serum immunofixation showed an IgG kappa monoclonal protein. A serum kappa/lambda light chain ratio was normal at 1.3. ?? An IgG level was 926 on 07/08/2020. A serum immunofixation showed an IgG kappa monoclonal protein. Aserum kappa/lambda light chain ratio was normal at 1.4. ?? An IgG level was 1050 on 09/16/2020. A serum immunofixation showed an IgG kappa monoclonal protein. A serum kappa/lambda light chain ratio was normal at 1.3. ? She developed bilateral chalazions in mid-09/2019. She was evaluated by an nuclear radiation engineer in 11/2019. She was started on doxycycline, which she took for 1 week and then developed a rash and self-discontinued the antibiotic. She was treated with prednisone x7 days and the rash resolved. She developeda new bothersome chalazion on the left upper lid in early 12/2019. We held Velcade x5 weeks. She self-delayed Revlimid x1 week in late 12/2019 due to the rash. The Velcade was decreased to every 2 weeks in mid-01/2020. She completed a course of erythromycin eye ointment. The chalazions resolved. ?? She developed recurrent difficulty with bilateral chalazions in 08/2020. We held the Revlimid/Velcade/dexamethasone following the 08/06/2020 Velcade infusion. The chelazions resolved. She restarted Revlimid 25 mg on 09/17/2020. She self- discontinued the dexamethasone in 08/2020. ?? An IgG level was 1110 on 10/28/2020. A serum immunofixation showed 2 IgG kappa monoclonal bands. A serum kappa/lambda light chain ratio was normal at 1.4. ?? The Revlimid was decreased to 15 mg in 10/2020. ?? She tolerated Revlimid/Velcade reasonably well. She reportewd mild blurred vision which she associated with the Velcade therapy. ?? An IgG level was 1080 on 12/02/2020. A serum immunofixation showed 2 IgG kappa monoclonal bands. A serum kappa/lambda light chain ratio was normal at 1.5. ?? An IgG level was 1020 on 02/07/2021. A serum immunofixation showed 2 IgG kappa monoclonal bands. A serum kappa/lambda light chain ratio was normal at 1.4. ?? An IgG level was 1090 on 04/04/2021. A serum immunofixation showed 2 IgG kappa monoclonal bands. A serum kappa/lambda light chain ratio was normal at 1.4. ?? She missed 3 doses of Velcade between 06/03/2021-08/12/2021, the last due to a COVID-19 infection. ?? A skeletal survey on 08/19/2021 showed stable findings. ?? An IgG level was 1050 on 10/23/2021. A serum immunofixation was negative. An SPEP showed no M spike.Serum kappa/lambda light chain ratio was normal at 1.6. ?? She missed 2 doses of Velcade between 10/28/2021-12/09/2021, the last due to travel. ?? An IgG level was 1026 on 12/03/2021. A serum immunofixation was negative. An SPEP showed no M spike. A serum kappa/lambda light chain ratio was normal at 1.2. ?? An IgG level was 1070 on 01/29/2022. A serum immunofixation showed a faint IgG kappa monoclonal band. A serum kappa/lambda light chain ratio was normal at 1.3. ?? An IgG level was 1048 on 02/12/2022. An SPEP showed no M spike. A serum kappa/lambda light chain ratio was normal at 1.1. ?? An IgG level was 1131 on 03/25/2022. A serum immunofixation was negative. An SPEP showed no M spike.A serum kappa/lambda light chain ratio was normal at 1.1. ?? An IgG level was 1114 on 04/09/2022. A serum immunofixation was negative. An SPEP showed no M spike. A serum kappa/lambda light chain ratio was 1.2. ?? An IgG level was 1064 on 05/08/2022. A serum immunofixation was negative. An SPEP showed no M spike.A serum kappa/lambda light chain ratio was normal at 1.2. ?? An IgG level was 1047 on 05/25/2022.. A serum immunofixation was negative. An SPEP showed no M spike. A serum kappa/lambda light chain ratio was normal at 1.2. ?? A serum immunofixation on 06/19/2022 was negative. A serum kappa/lambda light chain ratio was normal at 1.1. ?? An IgG level was 1026 on 07/01/2022. A serum immunofixation was negative. ?? A serum immunofixation on 08/26/2022 was negative. An SPEP showed no M spike. A serum kappa/light chain ratio was normal at 1.2. ?? The Revlimid/Velcade was held starting in mid-08/2022 for planned peripheral blood stem cell collection. The plan was to continue on single agent Revlimid. She self-discontinued the Revlimid in 09/2022 dueto concerns about a possible recurrent COVID-19 infection. Continued on aspirin 81 mg daily. ?? A CBC on 09/16/2022 showed WBC 6.6, hemoglobin 13.5 with MCV 88, and platelet count 278,000. ?? An IgG level was 1035 on 09/16/2022. Other immunoglobulin levels were normal. A serum immunofixationwas negative. An SPEP was negative. A serum free light chain ratio was normal at 1.2. A beta-2 microglobulin was normal at 1.7. ?? A urine immunofixation and 24-hour urine collection on 09/16/2021 showed no monoclonal protein. ?? A skeletal survey on 09/16/2022 showed subtle punctate lucencies in the skull, a tiny intramedullarylucency in the mid proximal left humeral diaphysis, and a 0.7 cm lucency in the right iliac acetabular junction. ?? She underwent a bone marrow aspirate on 09/17/2022 and the pathology revealed normal trilineage hematopoiesis with 4% plasma cells. A flow cytometry study showed no monotypic plasma cells. Cytogenetics are pending. ?? She underwent peripheral blood stem cell mobilization with G-CSF and Plerixafor x1 dose on 10/13/2022. She underwent a successful stem cell pheresis on 10/14/2022. ?? A CBC on 12/23/2022 showed WBC 6.3, hemoglobin 13.5 with MCV 88, and platelet count 3 and 11,000. A creatinine was 0.8. A calcium was 9.0. An IgG was 1026. Other immunoglobulin levels were normal. A serum immunofixation was negative. An SPEP showed no M spike. A serum kappa/lambda light chain ratio was normal at 1.3. Beta-2 microglobulin was normal at 1.5. ?? A CBC on 03/11/2023 showed WBC 6.2, hemoglobin 12.8 with MCV 87, platelet count 284,000. A creatinine was 0.8. A calcium was 8.6. An IgG was 1000. Other immunoglobulin levels were normal. A serum immunofixation was negative. An SPEP showed no M spike. A serum kappa/lambda light chain ratio was normal at 1.1. ?? A CBC on 05/03/2023 showed WBC 7.6, hemoglobin 13.6 with MCV 87, and platelet count 297,000. A creatinine was 1.0. A calcium was 8.9. An IgG was 1059. Other immunoglobulin levels were normal. An SPEP showed no M spike. A serum kappa/lambda light chain ratio was normal at 1.4. ?? A CBC on 07/08/2023 showed WBC 7.4, hemoglobin 12.8 with MCV 87, and platelet count 270,000. A creatinine was 0.7. A calcium was 8.7. An IgG was 1015. Other immunoglobulin levels were normal. An SPEP showed no M spike. A serum kappa/lambda light chain ratio was normal at 1.3. ?? She presented to the [facility] on 07/[facility]/2023 with a right-sided visual defect, stuttering speech, right facial paresthesias, and right leg paresthesias. She had been on aspirin 81 mg daily. A brain CTwithout contrast on 07/31/2023 was unremarkable. A neck MR angiogram on 08/01/2023 was unremarkable. A brain MRI with contrast on 08/01/2023 showed acute lacunar infarcts in the left thalamus and left periventricular white matter adjacent to the ventricular trigone. A brain MR angiogram on 08/01/2023 was unremarkable. She was noted to be hypertensive. She was started on amlodipine and chlorthalidone. She was started on aspirin and Plavix. The visual defect and paresthesias resolved as an inpatie nt. She developed intermittent morning right hip pain, which persists. The stuttering speech resolved after 5 days. She developed generalized headaches following discharge, which resolved. She was referred to Cardiology for an outpatient evaluation. An appointment with Cardiology was never made. She self- discontinued the chlorthalidone. She self-discontinued the Plavix after 1 month as she attributed mood lability to the Plavix. ?? She developed recurrent right-sided facial paresthesias and tongue paresthesias and presented to the [facility] ER on 10/05/2023. Brain CTA on 10/05/2023 was unremarkable. A neck CTA on 10/05/2023 was unremarkable. The symptoms resolved without intervention and have not recurred. She reported persistent intermittent morning right hip pain, which resolved without intervention.. She denies recurrent paresthesias. She was evaluated by Cardiology in spring 2023. An echo bubble study on 01/26/2024 reportedly showeda patent foramen ovale. She is scheduled for a PFO repair in the fall 2023. She has follow-up with Cardiology. ? A CBC on 10/20/2023 showed WBC 6.7, hemoglobin 13.8 with MCV 88, and platelet count 293,000. A creatinine was 0.7. A calcium was 10.2. An IgG was 1203. Other immunoglobulin levels were normal. An SPEPshowed no M spike. A serum kappa/lambda light chain ratio was normal at 1.1. ?? A CBC on 01/25/2024 showed WBC 6.3, hemoglobin 13.2 with MCV 88, and platelet count 260,000. A creatinine was 0.7. A Calcium was 9.3. An IgG was 1090. Other immunoglobulin levels were normal. A serum immunofixation was negative. An SPEP showed no M spike. A serum kappa/lambda light chain ratio was normal at 0.9. A CBC on 04/25/2025 showed WBC 8.6, hemoglobin 13.6 with MCV 88, and platelet count 244,000. An IgG was 1170. Other immunoglobulin levels were normal. An SPEP showed no M spike. ?? She denies bone pain. ?? She denies headaches or visual changes. She denies cough, hemoptysis, or dyspnea on exertion. She denies nausea or abdominal pain. She denies change in bowels. She denies anorexia or weight loss. ?? Review of systems: ?? The remainder of a 10 point review of systems was unremarkable. ?? Physical examination: ?? HEENT: Sclerae anicteric, left upper lid chalazion resolved, normal oropharyngeal membrane. Neck: No lymphadenopathy. Lungs: Clear to auscultation. Heart: No murmurs. Abdomen: Soft, nontender, no organomegaly or masses. Extremities: No edema. Skin: No rash. Neurologic: Normal gait. ?? Clinical summary: ?? The patient is a 48-year-old female who presents with an IgG kappa multiple myeloma, ISS-1. A skeletal survey in 01/2018 was unremarkable. There was a mild anemia. There was a reciprocal depression ofIgA and IgM. A bone marrow biopsy showed 80% plasma cells. Cytogenetics were normal. A FISH study showed no 17p deletion. ?? We started Revlimid 25 mg/Velcade/dexamethasone x 12 cycles, to be followed by Revlimid/Velcade maintenance. I discussed potential adverse effects of Revlimid, including fatigue, nausea, diarrhea, cytopenias, thrombosis, and teratogenic effects. I instructed her to start aspirin 325 mg daily. I discussed potential adverse effects of Velcade, including nausea, diarrhea, peripheral neuropathy, and thrombocytopenia. ?? She is tolerating Revlimid/Velcade/dexamethasone reasonably well. She reported intermittent left upper quadrant abdominal burning pain, prevented by Prilosec 20 mg, on the days following dexamethasone.. The dexamethasone was decreased from 40 mg weekly to 20 mg weekly in mid-08/2019 and the pain resolved. She reports occasional mild diarrhea. She reported intermittent mild burning paresthesias in her fingertips and toes during 1 week in 05/2019, which resolved. There was a mild transaminitis on 06/26/2019, likely due to Revlimid, which resolved. ? She had difficulty with bilateral chalazions starting in mid-09/2019. She was started on doxycyclinebut developed a rash after 1 week of therapy, which resolved with prednisone.. We held Velcade x5 weeks due to the infections. She self-delayed Revlimid x1 week due to the rash. We restarted the Revli mid/Velcade/dexamethasone. The Velcade was decreased to every 2 weeks in mid01/2020. She completed a course of erythromycin eye ointment. The chalazions resolved. ?? She developed recurrent difficulty with bilateral chalazions in 08/2020 likely associated with Velcade therapy. We held the Revlimid/Velcade/dexamethasone following the 08/20/2020 Velcade infusion. Thechelazions resolved. ?? We restarted the Revlimid on 09/17/2020. She self-discontinued the dexamethasone in 08/2020. We resumed Velcade every 2 weeks. ?? The Revlimid was decreased to 15 mg in 10/2020. ?? She is tolerating Revlimid/Velcade reasonably well. She reports mild blurred vision which she associates with the Velcade therapy. ?? The IgG normalized on therapy. The serum immunofixation became negative. The light chain ratio normalized on therapy. ?? A skeletal survey in late 03/2020 showed several lytic lesions in the calvarium and a solitary lyticlesion in the right posterior iliac bone, which likely developed before the initiation of treatmentor early on in the treatment course. A skeletal survey in mid-08/2021 showed stable findings. We will monitor skeletal surveys annually. ?? A bone marrow aspirate in early 04/2020 showed minimal residual disease on flow cytometry. ?? The Revlimid/Velcade has been on hold since due to a planned peripheral blood stem cell collection. ?? A restaging serum and urine immunofixation, SPEP, and serum free light chains in mid-09/2022 showed no evidence of myeloma. ?? A skeletal survey in mid-09/2022 showed subtle punctate lucencies in the skull, mid proximal left humeral diaphysis, and right iliac acetabular junction of uncertain significance. ?? A bone marrow aspirate in mid-09/2022 showed no evidence of myeloma. ?? She underwent a peripheral blood stem cell mobilization and collection in 09/2022. ?? She had been tolerating Revlimid well without side effects. She self- discontinued the Revlimid in 09/2022 due to concern about a recurrent COVID-19 infection. She remained on prophylactic aspirin. ?? Serum immunofixation's, SPEP, and serum free light chains showed no evidence of myeloma. ?? Previously received Zometa every 3 months; however, she has declined Zometa since the 07/2022 infusion. ?? She developed an acute thalamic lacunar infarction in late 07/2024. She had remained on aspirin 81 mg. She was hypertensive at presentation. She was started on amlodipine and chlorthalidone. She self-discontinue the chlorthalidone. She was started on Plavix. She self-discontinued the Plavix.after 1month as she attributed mood lability to the Plavix. She developed recurrent right-sided facial paresthesias and tongue paresthesias and presented to the [facility] ER on 10/05/2023. A brain CTA on 10/05/2023 was unremarkable. A neck CTA on 10/05/2023 was unremarkable. The symptoms resolved without intervention and have not recurred. She reported persistent intermittent morning right hip pain, which resolved without intervention.. She denies recurrent paresthesias. She was evaluated by Cardiology in spring 2023. An echo bubble study on 01/26/2024 reportedly showeda patent foramen ovale. She will undergo a PFO repair in the fall 2023. She has follow-up with Cardiology. I discussed the case with Dr. Loya, her Medical Oncologist in [place] and he recommended observing the patient off Revlimid. He recommended restarting Zometa every 3 months. ? I spent 30 minutes during this encounter, reviewing extensive laboratory data, performing a historyand physical, and providing education and counseling. documented in this encounter Plan of Treatment Upcoming Encounters Date Type Department Care Team (Late st Contact Info) Description 05/08/2025 2:45 PM EDT Office Visit [facility] [address] [place] [phone] Anselmo Crow MD [address] [place] [id number] documented as of this encounter Procedures Procedure Name Priority Date/Time Associated Diagnosis Comments ..MISCELLANEOUS REFERENCE LAB TEST 05/03/2024 documented in this encounter Results * Miscellaneous reference lab test (05/03/2024) us Provider Onbase LAB BLOOD ORDERABLES Final Re sult documented in this encounter Visit Diagnoses Not on filedocumented in this encounter Care Teams Abstract Searcher Relationship Specialty Start Date End Date Name, MD Kumar [address] [place], [place] PCP - General 03/31/19 documented as of this encounter
--- NOTE | 2025-04-24 08:41 | EMG_ITS ---
Chief complaint: Bilateral leg pain Reason for referral: Evaluate for peripheral and polyneuropathy Referred by:?Radha Berrios MD Procedure done: Bilateral lower extremities NCS/EMG Bilateral tibial and peroneal motor studies were performed bilateral superficial peroneal and sural sensory studies were performed bilateral median and lateral mixed plantars sensory studies were performed F responses were obtained and tibial H reflexes were obtained. EMG needle examination was performed. Bilateral mixed plantars sensory amplitude was were diminished with intact conduction velocities and distal latencies. Left sural and superficial peroneal amplitude were somewhat diminished. Needle examination revealed fibs and positive sharp waves in gastrocnemius but otherwise not an other muscles. Impression: 1. 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 There was some suggestion of bilateral lower lumbar radiculopathy though evidence was limited. Clinical correlation is recommended. [facility]
--- OUTSIDE RECORDS SUMMARY | 2025-04-24 09:38 | XMS_ITS ---
Author Organization [facility] Address [address] [address] Phone Care Team Providers Care Lead Network Architect Name Role Phone Unknown, Unknown Unavailable Unavailable Nicole Escobedo Unavailable [email or web address] RN Unavailable 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 Past Treatment and Therapy Plans
--- OUTSIDE RECORDS SUMMARY | 2025-04-24 09:38 | XMS_ITS | Clinical Summary ---
Author Organization [employer] Address [address] [facility] 7t [place] [address] Care Team Providers Care Remittance Clerk Name Role Phone Name, Kumar CESAR Primary Care Provider Lyudmila Clark PharmD Unavailable [phone] Allergies Active Allergy Reactions Criticality Noted Date Comments Doxycycline 12/22/2019 Hydrochlorothiazide 12/26/2024 Low K Valsartan 12/26/2024 Headaches and muscle pain Medications Blood Pressure kit Use once a day 1 kit 01/21/20 23 Active amLODIPine (Norvasc) 5 MG tabletIndications:H ypertension, unspecified type TAKE 1 TABLET BY MOUTH EVERY DAY 90 tablet 3 09/29/19 25 Active aspirin (Aspirin Low Dose) 81 MG EC tabletIndications:H istory of lacunar cerebrovascular accident TAKE 1 TABLET BY MOUTH EVERY DAY 90 tablet 10/26/19 25 Active gabapentin (Neurontin) 300 MG capsule Take 1 capsule (300 mg) by mouth at bedtime. 30 capsule 3 12/15/19 25 026 Active Diclofenac Sodium 1 % gel Apply 2 g topically if needed in the morning, at noon, in the evening, and at bedtime (pain). 150 g 3 12/15/19 25 Active tretinoin (Retin-A) 0.025 % cream APPLY TOPICALLY TO THE AFFECTED AREA AT BEDTIME 45 g 12/22/19 25 Active traZODone (Desyrel) 50 MG tablet TAKE 1/2 TABLET(25 MG) BY MOUTH AT BEDTIME 15 tablet 12/22/19 25 Active lisinopril 10 MG tablet Take 1 tablet (10 mg) by mouth Once per day. 30 tablet 11 04/18/20 25 026 Active lisinopril 5 MG tablet Take 1 tablet (5 mg) by mouth Once per day. 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 [address] [place] [address] Orin Ceballos [place] CHART PREP [address] [address] Kmuar West MD 02/23/2025 11:30 AM EDT Telemedicine [address] [address] Valentine Willis, VANGIE Hypertension, unspecified type [I10] 02/23/2025 Travel 01/30/2025 3:45 PM EDT Office Visit [address] [address] Kumar West MD Hypertension, unspecified type (Primary Dx) 01/30/2025 Travel 01/29/[address] [address] Kumar West MD Chart Prep 01/26/[address] [address] Kumar West MD Nurse Triage from Last 3 Months Immunizations Immunization Administration [...] Date Recorded Patient Health Questionnaire-9 Score 0 12/26/2024 Patient Health Questionnaire-9 Score 0 12/26/2024 Last PHQ-9: Questionnaire Data Not on file 0 12/26/2024 Housing Stability Answer Date Recorded What is your housing situation today? I have moshe ross 01/30/[address] you li ve. Do you have problems with any of the following? None of the above 01/30/2025 Food Insecurity Answer Date Recorded Within the past 12 months, y ou worried that your food would run out before you got money to buy more: Never True 01/30/2025 Within the past 12 months,th e food you bought just didn't last and you didn't have enough money to get more: Never True 08/2024 Transportation Answer Date Recorded In the past 12 months, has l ack of transportation kept you from medical appts, meetings, work or from getting things needed for daily living? No 01/30/2025 Utilities Answer Date Recorded In the past 12 months, has t he electric, gas, oil or water company threatened to shut off services in your home? No 01/30/2025 Depression Answer Date Recorded Patient Health Questionnaire-2 Score 0 12/26/2024 Internet Access Answer Date Recorded Internet Access Q1 Yes 01/30/2025 Internet Access Q2 Not on file 01/30/2025 Comments Unknown Sex and Gender Information Value Date Recorded Sex Assigned at Female 06/01/2022 10:19 AM EDT Legal Sex Female 10:19 AM EDT Gender Identity Female 06/01/2022 10:19 AM EDT Sexual Orientation Straight 06/01/2022 10 :19 AM EDT Last Filed Vital Signs Vital Sign Reading Time Taken Comments Blood Pressure 159/89 04/18/2025 4:29 PM EDT Pulse 99 04/18/2025 4:11 PM EDT Temperature 36.8 C (98.2 F) 04/18/2025 4:11 PM EDT Respiratory Rate 18 04/18/2025 4:11 PM EDT Oxygen Saturation 99% 04/18/2025 4:11 PM EDT Inhaled Oxygen Concentration - - Weight 70.4 kg (155 lb 3.2 oz) 04/18/2025 4:11 P M EDT Height 157.5 cm (5' 2 ) 04/18/2025 4:11 PM EDT Body Mass Index 28.39 04/18/2025 4:11 PM EDT Plan of Treatment Upcoming Encounters Date Type Department Care Team (Late st Contact Info) Description 05/10/2025 2:[address] [facility] [address] [place] [address] Health Maintenance Due Date Last Done Comments [...] of 2) 1993 DTaP/Tdap/Td Vaccines (2 - Td or Tdap) 07/11/2023 07/11/2013, 09/30/2009 Influenza Vaccine (#1) 2025 Colonoscopy 09/25/2025 09/25/2024, 08/03/2024 Colorectal Cancer Screening 09/25/2025 Depression Screening 12/26/2025 12/26/2024, 12/27/19 25 Disability Screening 12/26/2025 12/26/2024 Cervical Cancer Screening 01/27/2026 Pap Smear 01/27/2026 01/27/2023, 01/23/2022 SDOH Screening 01/30/2026 01/30/2025 Mammogram 02/01/2026 02/01/2025, 01/30, 02/09/2024, Additional history exists Alcohol/Substance Use Screening 04/18/2026 04/18/2025 Tobacco Screening 04/18/2026 04/18/2025 HPV/Cotest 01/23/2027 01/23/2022 Lipid Panel 08/20/2028 08/20/2023, [...] Author Blood Pressure < 140/90 Blood Pressure 159/89( 025 4:29 PM EDT) No Puia, Lyudmila, PharmD Record your blood pressure once per day Blood Pressure No Puia, Lyudmila, PharmD Procedures Procedure Name Priority Date/Time Associated Diagnosis Comments MAMMOGRAPHY Routine 02/01/2025 COLONOSCOPY Routine 09/25/2024 LIPID PANEL, STANDARD Routine 08/20/2023 8:32 AM EST Hypertension, unspecified type Lacunar stroke (CMS/HCC) On statin therapy PAP/HPV Routine 01/27/2023 PAP/HPV Routine 01/23/2022 from Last 3 Months or Most Recently Relevant to Health Maintenance Results * Mammography (02/01/2025) Mammogram BIRADS 1 Normal, Abnormal, BIRADS 1 , BIRADS 2 Anatomical Region Laterality Modality Other [facility] Provider HEALTH MAINTENANCE Final Result * (ABNORMAL) Colonoscopy (09/25/2024) Colonoscopy Abnormal(A ) Normal 09/25/2024 us Kumar West MD HEALTH MAINTENANCE Final Result * Lipid Panel, Standard (08/20/2023 8:32 AM EST) Triglycerides 58 <150 mg/dL [facility] Comment:Desirable Triglyceri de: less than 150 mg/dLBorderline High Triglyceride 150-199 mg/dLHigh Triglyceride: 200-499 mg/dLVery High Triglyceride: greater than or equal to 5OO mg/dL Cholesterol 121 <200 mg/dL [facility] Comment:Desirable Cholestero l: less than 200 mg/dLBorderline High Cholesterol: 200-239 mg/dLHigh Cholesterol: greater than 239 mg/dL LDL Cholesterol Calculated 67 <100 mg/dL [facility] Comment:Desirable LDL: less than 100 mg/dLNear Optimal/Above Optimal LDL: 110- 129 mg/dLBorderline High LDL: 130-159 mg/dLHigh LDL: 160-189 mg/dLVery High LDL: greater than or equal to 190 mg/dL HDL Cholesterol 43 >40 mg/dL [facility] Comment:Desirable HDL: great er than 40 mg/dL Note: This HDL assay may give artificially low results in patients with liver disease. Blood Venous blood specimen / Unknown 08/20/2023 8:32 AM EST 08/20/2023 11:44 AM EST us Kumar West MD LAB BLOOD ORDERABLES Final Resul t [facility] [address] [place] [address] [phone] * Pap Smear (01/27/2023) Only the most recent of2 resultswithin the time period is included. Pap Negative for intraephithelial lesion or malignancy Negative for intraephithelial lesion or malignancy, Other Kumar West MD HEALTH MAINTENANCE Final Result from Last 3 Months or Most Recently Relevant to Health Maintenance [place] [id number] Care Teams Remittance Clerk Relationship Specialty Start Date End Date Name, MD Kumar [address] [place] [address] PCP - General Family Medicine 04/05/19 Lyudmila Clark, Silvia [address] [place] [address] Pharmacist Internal Medicine 03/04/23
--- OUTSIDE RECORDS SUMMARY | 2025-04-24 09:38 | XMS_ITS | Encounter Summary ---
Author Organization [employer] Address [address] [facility] 7t [place] [address] Care Team Providers Care Periodicals Library Assistant Name Role Phone Name, Kumar CESAR Primary Care Provider [phone] Lyudmila Clark PharmD Unavailable [phone] Reason for Visit * Reason Onset Date Comments Referral 09/22/2023 Encounter Details Date Type Department Care Team ([facility] st Contact Info) Description 09/22/2023 Telephone [facility] [address] [place], [place] [phone] Name, MD Kumar [address] [place] [address] Referral Social History Tobacco Use Types Packs/Day [...] supposed to follow with cardi for outpatient cardiac cath lab technologist and repeat ECHO with bubble study but she does not have date yet. No answer. LVM to call back on [phone]. * Telephone Encounter - Saturnino Knight - 09/22/2023 10:38 AM EST Tc from [place] working with [facility] cardiology requesting clarification Cardiology referral. Karey is unsure if referral is for testing or a consultation. Please contact pt at [phone]. documented in this encounter Plan of Treatment Upcoming Encounters Date Type Department Care Team (Late st Contact Info) Description 05/10/2025 2:00 PM EDT Telemedicine [facility] [address] [place] [address] documented as of this encounter Goals Goal [...] Time PHQ-9 Depression Total Score: 0 01/21/20 10:22 AM EDT documented as of this encounter Care Teams Periodicals Library Assistant Relationship Specialty Start Date End Date Name, MD Kumar [address] [place] [address] PCP - General Family Medicine 04/05/19 Lyudmila Clark PharmD [address] [place] [address] Pharmacist Internal Medicine 03/04/23 documented as of this encounter
--- OUTSIDE RECORDS SUMMARY | 2025-04-24 09:38 | XMS_ITS | Encounter Summary ---
Author Organization [employer] Address [address] [facility] 7t [place] [address] Care Team Providers Care Warehouse Operations Associate Name Role Phone Name, Kumar CESAR Primary Care Provider [phone] Lyudmila Clark PharmD Unavailable [phone] Reason for Visit * Reason Comments Med Refill Encounter Details Date Type Department Care Team ([facility] Contact Info) Description 10/25/2024 Refill [facility] [address] [place], [place] [phone] Name, MD Kumar [address] [place], [place] [phone] Social History Tobacco Use Types Packs/Day Years [...] Info) Description 05/10/2025 2:00 PM EDT Telemedicine [facility] [address] [place] [address] documented as of this encounter Goals Goal Patient Goal Type Associated Problems Recent Progress Patient-Stated? Author Blood Pressure < 140/90 Blood Pressure 159/89( 025 4:29 PM EDT) No Puia, Lyudmila, PharmD Record your blood pressure once per day Blood Pressure No PuiaLyudmila, PharmD documented as of this encounter Visit Diagnoses Not on filedocumented in this encounter Additional Health Concerns Assessment Noted Time PHQ-9 Depression Total Score: 0 02/02/20 24 2:43 PM EDT documented as of this encounter Care Teams Warehouse Operations Associate Relationship Specialty Start Date End Date Name, MD Kumar [address] [place] [address] PCP - General Family Medicine 04/05/19 Puia, Lyudmila, PharmD [address] [place] [address] Pharmacist Internal Medicine 03/04/23 documented as of this encounter
--- OUTSIDE RECORDS SUMMARY | 2025-04-24 09:38 | XMS_ITS | Encounter Summary ---
Author Organization [facility] Address [address] [facility] [address] [place] [address] Phone Care Team Providers Care Abalone Processor Name Role Phone Unknown, Unknown Unavailable Unavailable Name, Kumar CESAR Primary Care Provider [phone] Helena Castillo CNP Primary Care Provider [phone] Nicole Escobedo Unavailable Cruzito [email or web address]. Ronel Benitez RN Unavailable [email or web address] Name, Kumar CESAR Primary Care Provider Encounter Details Date Type Department Care Team (Latest Contact Info) Description 09/04/2021 Transcribe Orders [address] [place] [address] Anselmo Crow MD [address] [place] [address] [email or web address] Myeloma associated amyloidosis (Primary Dx) Social History Tobacco Use Types Packs/Day Years Used Date Smoking Tobacco: Never Smokeless Tobacco: Never Comments Unknown Sex and Gender Information Value Date Recorded Sex Assigned at Not on file Legal Sex Female 12:23 PM EDT Gender Identity Not on file Sexual Orientation Not on file documented as of this encounter Plan of Treatment Upcoming Encounters Date Type Department Care Team ([facility] st Contact Info) Description 10/29/2025 3:00 PM EDT Blood Draw Laboratory Services, [facility] [address] [place] [address], 2nd Floor [place], [place] Christiano Loya MD [address] [place] [address] [facility] Myeloma Ctr. [place], [place] [email or web address] 10/29/2025 4:00 PM EDT Office Visit [facility], Division of Hematologic Oncology, [facility] [address] [place] [address], 7th Floor [place], [place] [phone] Christiano Loya MD [address] [place] [address] Multiple Myeloma Ctr. [place] [email or web address] documented as of this encounter Visit Diagnoses Diagnosis Myeloma associated amyloidosis- Primary Other amyloidosis documented in this encounter Care Teams Abalone Processor Relationship Specialty Start Date End Date Name, MD Kumar [address] [place] [address] PCP - General Geriatric Psychiatry 03/22/19 09/15/22 Helena Castillo, ONLINE JOURNALIST [address] [place] [address] PCP - General Nurse Practitioner 09/16/22 12/07/22 Name, MD Kumar [address] [place] [address] PCP - General Internal Medicine 12/08/22 Unknown, [place], 01/31/19 Nicole Escobedo [address] [facility] 6 [place] [address] Camron @[email or web address] Database Management Specialist 10/13/22 Ronel Aceves RN [address] [email or web address] [address] [email or web address] Primary Infusion Nurse 10/13/22 documented as of this encounter Additional Source Comments The information contained in this document represents components of the legal health record. It is not the complete legal health record.[facility]
--- OUTSIDE RECORDS SUMMARY | 2025-04-24 09:38 | XMS_ITS | Encounter Summary ---
Author Organization [facility] Address [address] [facility] [address] [place] [address] Phone Care Team Providers Care Vice President Network Development Name Role Phone Unknown, Unknown Unavailable Unavailable Name, Kumar CESAR Primary Care Provider [phone] Helena Castillo CNP Primary Care Provider Nicole Escobedo Unavailable Cruzito [email or web address]. Ronel Benitez RN Unavailable [email or web address]. [email or web address].[facility] Name, Kumar CESAR Primary Care Provider [phone] Encounter Details Date Type Department Care Team (Late st Contact Info) Description 07/16/2022 Documentation Central Registration, [address], [address] [place] [address] Nyasia Dubon [address] [place] [address] [email or web address] Social History Tobacco Use Types Packs/Day Years [...] Care Team (Late st Contact Info) Description 10/29/2025 3:00 PM EDT Blood Draw Laboratory Services, [address], 2nd [place], [place] Christiano Loya MD [address] [place] [address] [facility] [facility] Multiple Myeloma Ctr. [place], [place] [email or web address] 10/29/2025 4:00 PM EDT Office Visit [facility], Division of Hematologic Oncology, [facility] [address] [place] [address], 7th [place], [place] [phone] Christiano Loya MD [address] [place] [address] [place] [facility] Multiple [facility]eloma [facility]tr. [place], [place] [email or web address] documented as of this encounter Visit Diagnoses Not on filedocumented in this encounter Care Teams Vice President Network Development Relationship Specialty Start Date End Date Name, MD Kumar [address] [place] [address] PCP - General Geriatric Psychiatry 03/22/19 09/15/22 Helena Castillo, TELE GROUT SEWER LINE REPAIRER [address] [facility] 6 [place] [address] [email or web address] PCP - General Nurse Practitioner 09/16/22 12/07/22 Name, MD Kumar [address] [place] [address] PCP - General Internal Medicine 12/08/22 Unknown, [place], 01/31/19 Nicole Escobedo 15 [facility] 6 [place], [place] Camron @[email or web address] Beaming Machine Operator 10/13/22 Ronel Aceves, VANGIE [address] [place] [address] [email or web address] Primary Infusion Nurse 10/13/22 documented as of this encounter Additional Source Comments The information contained in this document represents components of the legal health record. It is not the complete legal health record.[facility]
--- OUTSIDE RECORDS SUMMARY | 2025-04-24 09:38 | XMS_ITS | Clinical Summary ---
Author Organization [facility] Address [address] [place], [place] [id number] Care Team Providers Care Surveillance Dual Rate Officer Name Role Phone Name, Kumar CESAR Primary Care Provider [phone] Allergies No known active allergies Medications Medication [...] 60 05/03/2024 9:11 AM EDT Temperature 37.1 C (98.8 F) 05/03/2024 9:11 AM EDT Respiratory Rate 16 08/04/2022 8:36 [...] Cancer Screening (Mammogram) 2024 Influenza Vaccine (#1) 2025 RSV Ped < 20 months Aged Out No longe r eligible based on patient's age to complete this topic Insurance Payer Benefit Plan / Group Subscriber ID Effective Dates Phone Address [facility] [id number] 2021-Christa t [address] [facility] [address] [place] [phone] O Care Teams Surveillance Dual Rate Officer Relationship Specialty Start Date End Date Name, MD Kumar [address] [facility] [address] [place] [address] PCP - General Internal Medicine 03/31/19
--- OUTSIDE RECORDS SUMMARY | 2025-04-24 09:38 | XMS_ITS | Encounter Summary ---
Author Organization [facility] Address [address] [address] Phone Care Team Providers Care Horticultural Nursery Assistant Name Role Phone Unknown, Unknown Unavailable Unavailable Nicole Escobedo Unavailable [email or web address] [email or web address] Ronel Benitez RN Unavailable [email or web address] Name, Kumar CESAR Primary Care Provider [phone] Reason for Visit * Reason Comments Medication Refill Encounter Details Date Type Department Care Team (Late st Contact Info) Description 12/24/2022 Refill Division of Hematologic Oncology, [facility] [address] [place] [address], 8th [place] [address] Lyla Angelo PA-C [address] [place] [address] [email or web address] Medication Refill Social History Tobacco Use Types Packs/Day Years Used Date Smoking Tobacco: Never Smokeless Tobacco: Never Education Answer Date Recorded Are you interested in more education? Not on rodney e 11/27/2022 Are you concerned about learning? Not on file 11/27/2022 No 11/27/2022 No 11/27/2022 Digital Access Answer Date Recorded No 12/22/2022 No 12/22/2022 No 12/22/2022 Reliable internet access at home? Not on file 12/22/2022 Device with a working camera? Not on file Comments Unknown Sex and Gender Information Value Date Recorded Sex Assigned at Not on file Legal Sex Female 12:23 PM EDT Gender Identity Not on file Sexual Orientation Not on file documented as of this encounter Plan of Treatment Upcoming Encounters Date Type Department Care Team (Late st Contact Info) Description 10/29/2025 3:00 PM EDT Blood Draw Laboratory Services, [address], 2nd [place] [address] Christiano Loya MD [address] [place] [address] [place] [facility] [place] [address] [email or web address] 10/29/2025 4:00 PM EDT Office Visit [facility], Division of Hematologic Oncology, [address], 7th [place] [address] Christiano Loya MD [address] [place] [address] [facility] [place] [address] [email or web address] documented as of this encounter Visit Diagnoses Not on filedocumented in this encounter Care Teams Horticultural Nursery Assistant Relationship Specialty Start Date End Date Name, MD Kumar [address] [place] [address] PCP - General Internal Medicine 12/08/22 Unknown, Unknown, 01/31/19 Nicole [email or web address] Interior Design Consultant 10/13/22 Ronel Aceves, VANGIE [address] [place] [address] [email or web address] Primary Infusion Nurse 10/13/22 documented as of this encounter Additional Source Comments The information contained in this document represents components of the legal health record. It is not the complete legal health record.[facility]
--- OUTSIDE RECORDS SUMMARY | 2025-04-24 09:38 | XMS_ITS ---
Author Organization [facility] Address [address] [place] [address] Care Team Providers Care Flight Physician Name Role Phone Name, Kumar CESAR Primary Care Provider [phone] Active Problems Problem Noted Date Diagnosed Date Multiple myeloma not having achieved remission 0 01/05/2019 Current Oncology Plans No current plan information found. Past Plans ONCOLOGY INFUSION THERAPY Plan Name Start Date Discontinue Date Treatment Medications Discontinue Reason Plan Provider [facility] ZOLEDRONIC ACID (ZOMETA) 04/14/2022 09/09/2023 Saline Flush 0.9 %sodium chloride (NS) 0.9 %zoledronic acid (ZOMETA) Therapy Complete Anselmo Crow MD ONCOLOGY TREATMENT Plan Name Start Date Discontinue Date Treatment Medications Discontinue Reason Plan Provider [facility] LENALIDOM[facility] / DEXAMETHASONE (1 HR) 2 10/06/2023 acyclovir (ZOVIRAX)borte zomib (VELCADE)dexam ethasone (DECADRON)oskar lidomide (REVLIMD)potas sium chloride ERSaline Flush 0.9 %sodium chloride (NS) 0.9 % Therapy Complete - 12 of 12 cycles started Radiation Treatments * No radiation treatments are documented for this patient in [facility]. Treatments may have been administered in another system.
--- OUTSIDE RECORDS SUMMARY | 2025-04-24 09:38 | XMS_ITS | Encounter Summary ---
Author Organization [employer] Address [address] [facility] 7t [place] [address] Care Team Providers Care Color Technician Name Role Phone Name, Kumar CESAR Primary Care Provider [phone] Lyudmila Clark PharmD Unavailable [phone] Reason for Visit * Reason Comments Med Refill Encounter Details Date Type Department Care Team ([facility] Contact Info) Description 12/21/2024 Refill [facility] [address] [place], [place] [phone] Name, MD Kumar [address] [place], [place] [phone] Social History Tobacco Use Types Packs/Day Years [...] Info) Description 05/10/2025 2:00 PM EDT Telemedicine [facility] [address] [place] [address] documented as of this encounter Goals Goal [...] documented as of this encounter Care Teams Color Technician Relationship Specialty Start Date End Date Name, MD Kumar [address] [place] [address] PCP - General Family Medicine 04/05/19 Puia, Lyudmila, PharmD [address] [place] [address] Pharmacist Internal Medicine 03/04/23 documented as of this encounter
--- OUTSIDE RECORDS SUMMARY | 2025-04-24 09:38 | XMS_ITS | Encounter Summary ---
Author Organization [employer] Address [address] [place] [address] 7 [place] [address] Care Team Providers Care Aerial Photogrammetrist Name Role Phone Name, Kumar CESAR Primary Care Provider Lyudmila Clark PharmD Unavailable [phone] Reason for Visit * Reason Onset Date Comments Referral 12/22/2022 Encounter Details Date Type Department Care Team ([facility] Contact Info) Description 12/22/2022 Telephone [facility] [address] [place] [address] [phone] Name, MD Kumar [address] [place] [address] Referral Social History Tobacco Use Types Packs/Day [...] Info) Description 05/10/2025 2:00 PM EDT Telemedicine [facility] [address] [place] [address] documented as of this encounter Visit Diagnoses Not on filedocumented in this encounter Care Teams Aerial Photogrammetrist Relationship Specialty Start Date End Date Kumar West MD [address] [place] [address] PCP - General Family Medicine 04/05/19 Lyudmila Clark, PharmD [address] [place] [address] Pharmacist Internal Medicine 03/04/23 documented as of this encounter
--- OUTSIDE RECORDS SUMMARY | 2025-04-24 09:38 | XMS_ITS | Encounter Summary ---
Author Organization [facility] Address [address] [address] Phone Care Team Providers Care Wind Turbine Mechanic Name Role Phone Unknown, Unknown Unavailable Unavailable Nicole Escobedo Unavailable Cruzito [email or web address] [email or web address] Benitez RN Unavailable [email or web address] Name, Kumar CESAR Primary Care Provider [phone] Reason for Visit * Reason Comments Medication Refill Encounter Details Date Type Department Care Team (Late st Contact Info) Description 12/24/2022 Refill Division of Hematologic Oncology, [facility] [address] [place] [address], 8th [place] [address] Lyla Angelo PA-C [address] [place] [address] [email or web address] Medication Refill Social History Tobacco Use [...] 3:00 PM EDT Blood Draw Laboratory Services, [address], 2nd [place] [address] Christiano Loya MD [address] [place] [address] Ed[facility] [place] [address] [email or web address] 10/29/2025 4:00 PM EDT Office Visit [facility], Division of Hematologic Oncology, [address], [address] [place] [address] Christiano Loya MD [address] [place] [address] [facility] [place] [address] [email or web address] documented as of this encounter Visit Diagnoses Not on filedocumented in this encounter Care Teams Wind Turbine Mechanic Relationship Specialty Start Date End Date Name, MD Kumar [address] [place] [address] PCP - General Internal Medicine 12/08/22 Unknown, Unknown, 01/31/19 Nicole [email or web address] Hand Hardener 10/13/22 Ronel Aceves, VANGIE [address] [place] [address] [email or web address] Primary Infusion Nurse 10/13/22 documented as of this encounter Additional Source Comments The information contained in this document represents components of the legal health record. It is not the complete legal health record.[facility]
--- OUTSIDE RECORDS SUMMARY | 2025-04-24 09:38 | XMS_ITS | Encounter Summary ---
Author Organization [facility] Address [address] [address] Phone Care Team Providers Care Fluorescent Lighting Model Maker Name Role Phone Unknown, Unknown Unavailable Unavailable Name, Kumar CESAR Primary Care Provider Helena Castillo CNP Primary Care Provider [phone] Nicole Escobedo Unavailable Cruzito [email or web address] Ronel Benitez RN Unavailable [email or web address] Name, Kumar CESAR Primary Care Provider Encounter Details Date Type Department Care Team (Late st Contact Info) Description 07/20/2022 Transcribe Orders [facility] Specimen Processing [address] [place] [address] Name, MD Kumar 230 [place] [address] Social History Tobacco Use Types Packs/Day Years [...] Department Care Team (Late Contact Info) Description 10/29/2025 3:00 PM EDT Blood Draw Laboratory Services, [facility] [place] [address] [place] [address], 2nd [place] [address] Christiano Loya MD [address] [place] [address] Ed[facility] [place] [address] [email or web address] 10/29/2025 4:00 PM EDT Office Visit [facility], Division of Hematologic Oncology, [facility] [place] [address] [place] [address], 7th [place] [address] Christiano Loya MD [address] [place] [address] Ed[facility] [place] [address] [email or web address] documented as of this encounter Visit Diagnoses Not on filedocumented in this encounter Care Teams Fluorescent Lighting Model Maker Relationship Specialty Start Date End Date Name, MD Kumar [address] [place] [address] PCP - General Geriatric Psychiatry 03/22/19 09/15/22 Helena Castillo, MACHINE PACKAGING TECHNICIAN [address] [address] [email or web address] PCP - General Nurse Practitioner 09/16/22 12/07/22 Name, MD Kumar [address] [place] [address] PCP - General Internal Medicine 12/08/22 Unknown, Unknown, 01/31/19 Nicole Escobedo [address] [facility] 6 [place] [address] Camron [email or web address] Machine Hoop Maker Helper 10/13/22 Ronel Aceves, VANGIE [address] [place] [address] [email or web address] Primary Infusion Nurse 10/13/22 documented as of this encounter Additional Source Comments The information contained in this document represents components of the legal health record. It is not the complete legal health record.[facility]
--- OUTSIDE RECORDS SUMMARY | 2025-04-24 09:38 | XMS_ITS | Encounter Summary ---
Author Organization [employer] Address 75 [facility] [address] [place] [address] Care Team Providers Care Drum Sander Name Role Phone Name, Kumar CESAR Primary Care Provider Lyudmila Clark PharmD Unavailable [phone] Reason for Visit * Reason Onset Date Comments Reschedule 09/02/2023 Encounter Details Date Type Department Care Team ([facility] st Contact Info) Description 09/02/2023 Telephone [facility] [address] [place], [place] [phone] Name, MD Kumar [address] [place] [address] Reschedule Social History Tobacco Use Types Packs/Day [...] Info) Description 05/10/2025 2:00 PM EDT Telemedicine [facility] [address] [place] [address] documented as of this encounter Goals Goal [...] documented as of this encounter Care Teams Drum Sander Relationship Specialty Start Date End Date Name, MD Kumar [address] [place] [address] PCP - General Family Medicine 04/05/19 Puia, Lyudmila, PharmD [address] [place] [address] Pharmacist Internal Medicine 03/04/23 documented as of this encounter
--- OUTSIDE RECORDS SUMMARY | 2025-04-24 09:38 | XMS_ITS | Encounter Summary ---
Author Organization [employer] Address [address] [facility] [address] 7t [place] [address] Care Team Providers Care Corporate Manager Name Role Phone Name, Kumar CESAR Primary Care Provider [phone] Lyudmila Clark PharmD Unavailable [phone] Reason for Visit * Reason Comments Med Refill Encounter Details Date Type Department Care Team ([facility] Contact Info) Description 10/25/2024 Refill [facility] 230 [place], [place] [phone] Joan Alarcon MD [address] [place], [place] [phone] Social History Tobacco Use Types Packs/Day Years [...] Info) Description 05/10/2025 2:00 PM EDT Telemedicine [facility] [address] [place] [address] documented as of this encounter Goals Goal Patient Goal Type Associated Problems Recent Progress Patient-Stated? Author Blood Pressure < 140/90 Blood Pressure 159/89( 025 4:29 PM EDT) No Puia, Lyudmila, PharmD Record your blood pressure once per day Blood Pressure No PuiaLandryLyudmila, PharmD documented as of this encounter Visit Diagnoses Not on filedocumented in this encounter Additional Health Concerns Assessment Noted Time PHQ-9 Depression Total Score: 0 02/02/20 24 2:43 PM EDT documented as of this encounter Care Teams Corporate Manager Relationship Specialty Start Date End Date Name, MD Kumar [address] [place] [address] PCP - General Family Medicine 04/05/19 Puia, Lyudmila, PharmD [address] [place] [address] Pharmacist Internal Medicine 03/04/23 documented as of this encounter
--- OUTSIDE RECORDS SUMMARY | 2025-04-24 09:38 | XMS_ITS | Encounter Summary ---
Author Organization [employer] Address [address] [place] [address] 7t [place] [address] Care Team Providers Care Pharmacogeneticist Name Role Phone Name, Kumar CESAR Primary Care Provider [phone] Lyudmila Clark PharmD Unavailable [phone] Encounter Details Date Type Department Care Team (Late st Contact Info) Description 09/23/2022 Orders Only [facility] MED & PEDS [address] [place], [place] [phone] Radha Sparks LPN Social History Tobacco Use [...] Info) Description 05/10/2025 2:00 PM EDT Telemedicine [facility] [address] [place] [address] documented as of this encounter Visit Diagnoses Not on filedocumented in this encounter Care Teams Pharmacogeneticist Relationship Specialty Start Date End Date Name, MD Kumar [address] [place] [address] PCP - General Family Medicine 04/05/19 Lyudmila Clark, PharmD [address] [place] [address] Pharmacist Internal Medicine 03/04/23 documented as of this encounter
--- OUTSIDE RECORDS SUMMARY | 2025-04-24 09:38 | XMS_ITS | Clinical Summary ---
Author Organization [facility] Address [address] [place] [address] Phone Care Team Providers Care Marble Supervisor Name Role Phone Name, Kumar CESAR Primary Care Provider [phone] Allergies No known active allergies Medications amLODIPine (NORVASC) 5 mg tablet Take 1 tablet (5 mg total) by mouth 1 (one) time each day. 01/03/2022 Active aspirin 81 mg EC tablet Take 1 tablet (81 mg total) by mouth 1 (one) time each day. Active cholecalciferol (VITAMIN D-3) 25 mcg (1,000 unit) tablet Take 1 tablet (1,000 Units total) by mouth daily. Active cyclobenzaprine (FLEXERIL) 10 mg tablet Take 1 tablet (10 mg total) by mouth 3 (three) times a day if needed for muscle spasms for up to 10 days. 15 tablet 01/19/2025 Active lisinopriL (PRINIVIL,ZESTRI L) 2.5 mg tablet Take 1 tablet (2.5 mg total) by mouth 1 (one) time each day. Active Active Problems Problem Noted Date Diagnosed Date Multiple myeloma not having achieved remission (CMS/HCC V24, CMS/FORMERLY [facility] V28) 01/05/2019 Encounters Date Type Department Care Team Description 03/07/2025 Lab Requisition [facility] - Main Lab [address] [facility] [place] [address] Bobo Ricks MD Encounter for gynecological examination (general) (routine) without abnormal findings 03/06/2025 Telephone [facility] [address] [place] [address] Name, MD Kumar 01/30/2025 1:00 PM EDT Office Visit [facility] Hematology Oncology [address] [place] [address] Anselmo Crow MD Multiple myeloma not having achieved remission (CMS/HCC V24, CMS/HCC V28) (Primary Dx) from Last 3 Months Surgical History Surgery [...] Not Answered Alcohol Use Standard Drinks/Week Comments No 0 (1 standard drink = 0.6 oz pur e alcohol) Comments Unknown Sex and Gender Information Value Date Recorded Sex Assigned at Not on file Legal Sex Female 2:26 PM EST Gender Identity Not on file Sexual Orientation Not on file Obstetrics History Last Filed Vital Signs Vital Sign Reading Time Taken Comments Blood Pressure 154/84 01/30/2025 1:06 PM EDT Pulse 77 01/30/2025 1:06 PM EDT Temperature 37.3 C (99.1 F) 01/30/2025 1:06 PM EDT Respiratory Rate 19 01/19/2025 2:02 AM EDT Oxygen Saturation 100% 01/30/2025 1:06 PM EDT Inhaled Oxygen Concentration - - Weight 69.4 kg (153 lb) 01/30/2025 1:06 PM EDT Height 157.5 cm (5' 2 ) 01/18/2025 8:32 PM EDT Body Mass Index 27.98 01/18/2025 8:32 PM EDT Plan of Treatment Upcoming Encounters Date Type Department Care Team (Late st Contact Info) Description 05/08/2025 2:45 PM EDT Office Visit [facility] Hematology Oncology [address] [place] [address] Anselmo Crow MD [address] [place] [address] Health Maintenance Due Date Last Done Comments Breast Cancer Screening 1974 COVID-19 Vaccine (#1) 1979 Hepatitis B Vaccines (1 of 3 - 19+ 3-dose series) 1993 Pneumococcal Vaccine: 50+ Years (1 of 2 - PCV) 1993 Zoster Vaccines (1 of 2) 1993 Colorectal Cancer Screening: Colonoscopy 07/09/2022 HIV Screening 07/09/2022 Hepatitis C Screening 07/09/2022 Social Influencers of Health Screening 07/09/2022 DTaP,Tdap,and Td Vaccines (3 - Td or Tdap) 07/11/2023 07/11/2013, 09/30/2009 Depression Screening 08/02/2024 Influenza Vaccine (#1) 2025 Hypertension/CHF/CAD Annual BMP Blood Test 01/19/2026 01/19/2025, 01/18/2025, 11/27/2024, Additional history exists Cholesterol Screening (Lipid Panel) 08/20/2028 08/20/2023, 08/20/2023 Cervical Cancer Screening: HPV 03/06/2030 03/06/2025 RSV Immunization Adult Patients (1 - 1-dose 75+ series) 2049 HIB [...] Procedure Name Priority Date/Time Associated Diagnosis Comments PAP SMEAR Routine 03/06/2025 12:00 AM EDT Encounter for gynecological examination (general) (routine) without abnormal findings HPV WITH REFLEX GENOTYPE Routine 03/06/2025 12:00 AM EDT Encounter for gynecological examination (general) (routine) without abnormal findings COMPREHENSIVE METABOLIC PANEL STAT 01/18/2025 9:21 PM EDT LIPID PANEL Routine 08/20/2023 from Last 3 Months or Most Recently Relevant to Health Maintenance Results * HPV with reflex genotype (03/06/2025 12:00 AM EDT) HPV Negative Negative LAB MICROBIOLOGY METHOD 03/14/2025 2:29 PM EDT [facility] Brushing/Spatula Cervix uteri structure / Unknown 03/06/2025 03/13/2025 4:13 PM EDT Bobo Ricks MD LAB MOLECULAR DIAGNOSTICS MANUEL TEJEDA Final Result [facility] [address] [place] [address], * (ABNORMAL) Pap smear (03/06/2025 12:00 AM EDT) Interpretation Atypical squamous cells of undetermined significance(A) 03/13/2025 4:13 PM EDT [facility] General Categorization Epithelial cell abnormality, see interpretation 03/13/2025 4:13 PM EDT [facility] Specimen Adequacy Satisfactory for evaluation, endocervical/tra nsformation zone component present 03/13/2025 4:13 PM EDT [facility] Pap Methodology Liquid Based Pap Test 03/13/2025 4:13 PM EDT [facility] Disclaimer The Pap test is a screening test which carries an inherent false negative rate. These test results should be correlated with the patient's clinical findings and history. This Pap test was processed using an automated screening system. Technical cytopathology services provided by [facility], at [address] [place] [address] (CLIA # [id number]/Tanika Blood MD, Hearing Impaired Teacher.) 03/13/2025 4:13 PM EDT [facility] Console Pap Interpretation Reported 03/13/2025 4:[address] [facility] Brushing/Spatula Cervix uteri structure / Unknown 03/06/2025 03/07/2025 6:57 AM EDT us Bobo Ricks MD LAB CYTOLOGY ORDERABLES Final Result [facility] [address] [place] [address], * (ABNORMAL) Comprehensive metabolic panel (01/18/2025 9:21 PM EDT) Sodium 139 133 - 145 mmol/L LAB CHEMISTRY METHOD 01/18/2025 10:03 PM EDT [facility] Potassium 3.8 3.5 - 5.5 mmol/L LAB CHEMISTRY METHOD 01/18/2025 10:03 PM EDT [facility] Chloride 105 96 - 110 mmol/L LAB CHEMISTRY METHOD 01/18/2025 10:[address] [facility] CO2 26 21 - 32 mmol/L LAB CHEMISTRY METHOD 01/18/2025 10:[address] [facility] Anion Gap 8 3 - 11 LAB CHEMISTRY METHOD 01/18/2025 10:[address] [facility] Glucose 102(H) 70 - 100 mg/dL LAB CHEMISTRY METHOD 01/18/2025 10:[address] [facility] BUN 15 5 - 25 mg/dL LAB CHEMISTRY METHOD 01/18/2025 10:[address] [facility] Creatinine 0.96 0.50 - 1.10 mg/dL LAB CHEMISTRY METHOD 01/18/2025 10:[address] [facility] eGFR 72 >=60 mL/min/1. 73m2 LAB CHEMISTRY METHOD 01/18/2025 10:[address] [facility] Comment:Calculation based on the Chronic Kidney Disease Epidemiology Collaboration (CKD-EPI) equation refit without adjustment for race. BUN/Creatinine Ratio 15.6 LAB CHEMISTRY METHOD 01/18/2025 10:[address] [facility] Calcium 9.9 8.5 - 10.5 mg/dL LAB CHEMISTRY METHOD 01/18/2025 10:[address] [facility] AST (SGOT) 14 10 - 42 unit/L LAB CHEMISTRY METHOD 01/18/2025 10:[address] [facility] ALT (SGPT) 23 10 - 60 unit/L LAB CHEMISTRY METHOD 01/18/2025 10:[address] [facility] Alkaline Phosphatase 55 42 - 121 unit/L LAB CHEMISTRY METHOD 01/18/2025 10:[address] [facility] Total Protein 7.5 6.0 - 8.0 g/dL LAB CHEMISTRY METHOD 01/18/2025 10:[address] [facility] Albumin 4.2 3.2 - 5.0 g/dL LAB CHEMISTRY METHOD 01/18/2025 10:03 PM EDT [facility] Total Bilirubin 0.4 0.0 - 1.4 mg/dL LAB CHEMISTRY METHOD 01/18/2025 10:03 PM EDT [facility] Blood Venous blood specimen / Unknown Venipuncture / Unknown 01/18/2025 9:21 PM EDT 01/18/2025 9:33 PM EDT Rajan B Enrique CESAR LAB BLOOD ORDERABLES Final Resu lt [facility] [address] [place] [address], * Lipid panel (08/20/2023) LDL/HDL Ratio 0 Triglycerides 0 mg/dL Cholesterol 0 mg/dL HDL 0 mg/dL LDL Cholesterol 0 mg/dL Blood Venous blood specimen / Unknown Historical Provider LAB BLOOD ORDERABLES Marcie l Result from Last 3 Months or Most Recently Relevant to Health Maintenance Insurance [facility] [employer] Care Teams Marble Supervisor Relationship Specialty Start Date End Date Name, MD Kumar [address] [place], [place] PCP - General 03/31/19
--- OUTSIDE RECORDS SUMMARY | 2025-04-24 09:38 | XMS_ITS | Encounter Summary ---
Author Organization [employer] Address [address] [place] [address] Care Team Providers Care Sales Forecast Analyst Name Role Phone Name, Kumar CESAR Primary Care Provider [phone] Encounter Details Date Type Department Care Team (Latest Contact Info) Description 03/07/[address] [facility] - Main Lab [address] [place] [address] Bobo Ricks MD [address] [phone] Encounter for gynecological examination (general) (routine) without abnormal findings Social History Tobacco Use Types Packs/Day Years [...] on file documented as of this encounter Functional Status * Are you deaf or do you have serious difficulty hearing? Answer Date of Assessment Author No 01/19/2025 2:05 AM EDT Madison Baltazar RN * Are you blind or do you have serious difficulty seeing, even when wearing glasses? Answer Date of Assessment Author No 01/19/2025 2:05 AM EDT Madison Baltazar RN * Do you have serious difficulty walking or climbing stairs? Answer Date of Assessment Author No 01/19/2025 2:05 AM EDT Madison Baltazar RN * Do you have serious difficulty dressing or bathing? Answer Date of Assessment Author No 01/19/2025 2:05 AM EDT Madison Baltazar RN * Because of a physical, mental, or emotional condition, do you have serious difficulty doing errandsalone such as visiting the doctor? Answer Date of Assessment Author No 01/19/2025 2:05 AM EDT Madison Baltazar RN documented as of this encounter Mental Status * Because of a physical, mental, or emotional condition, do you have serious difficulty concentrating, remembering, or making decisions? (5 years old or older) Answer Entry Date Author No 01/19/2025 2:05 AM EDT Madison Baltazar RN documented in this encounter Plan of Treatment Upcoming Encounters Date Type Department Care Team (Late st Contact Info) Description 05/08/2025 2:45 PM EDT Office Visit [facility] Hematology Oncology [address] [place] [address] Anselmo Crwo MD [address] [place] [address] documented as of this encounter Procedures Procedure Name Priority Date/Time Associated Diagnosis Comments HPV WITH REFLEX GENOTYPE Routine 03/06/2025 12:00 AM EDT Encounter for gynecological examination (general) (routine) without abnormal findings PAP SMEAR Routine 03/06/2025 12:00 AM EDT Encounter for gynecological examination (general) (routine) without abnormal findings documented in this encounter Results * HPV with reflex genotype (03/06/2025 12:00 AM EDT) HPV Negative Negative LAB MICROBIOLOGY METHOD 03/14/2025 2:29 PM EDT [facility] LAB Brushing/Spatula Cervix uteri structure / Unknown 03/06/2025 03/13/2025 4:13 PM EDT us Bobo Ricks MD LAB MOLECULAR DIAGNOSTICS MANUEL TEJEDA Final Result [facility] [address] [place] [address], [place] [phone] * (ABNORMAL) Pap smear (03/06/2025 12:00 AM EDT) Interpretation Atypical squamous cells of undetermined significance(A) 03/13/2025 4:13 PM EDT [facility] General Categorization Epithelial cell abnormality, see interpretation 03/13/2025 4:13 PM EDT [facility] Specimen Adequacy Satisfactory for evaluation, endocervical/tra nsformation zone component present 03/13/2025 4:13 PM EDT [facility] Pap Methodology Liquid Based Pap Test 03/13/2025 4:13 PM EDT [facility] Disclaimer The Pap test is a screening test which carries an inherent false negative rate. These test results should be correlated with the patient's clinical findings and history. This Pap test was processed using an automated screening system. Technical cytopathology services provided by [facility], at [address] [place] [address] (CLIA # [id number]/Tanika Blood MD, Kaiako Kohanga Reo.) 03/13/2025 4:13 PM EDT [facility] Console Pap Interpretation Reported 03/13/2025 4:13 PM T [facility] Brushing/Spatula Cervix uteri structure / Unknown 03/06/2025 03/07/2025 6:57 AM EDT Bobo Ricks MD LAB CYTOLOGY ORDERABLES Final Result [facility] [address] [place] [address], [place] [phone] documented in this encounter Visit Diagnoses Diagnosis Encounter for gynecological examination (general) (routine) without abnormal findings documented in this encounter Care Teams Sales Forecast Analyst Relationship Specialty Start Date End Date Name, MD Kumar [address] [place], [place] PCP - General 03/31/19 documented as of this encounter
--- OUTSIDE RECORDS SUMMARY | 2025-04-24 09:38 | XMS_ITS | Encounter Summary ---
Author Organization [employer] Address [address] [place] [address] 7 [place] [address] Care Team Providers Care Voice Data Communications Engineer Name Role Phone Name, Kumar CESAR Primary Care Provider [phone] Lyudmila Clark PharmD Unavailable [phone] Encounter Details Date Type Department Care Team (Late st Contact Info) Description 12/30/2022 [facility] [employer] Information Management [address] [place] [address] Name, MD Kumar [address] [place] [address] Social History Tobacco Use Types Packs/Day Years [...] Description 05/10/2025 2:00 PM EDT Telemedicine [facility] MEDICINE [address] [place] [address] [phone] documented as of this encounter Visit Diagnoses Not on filedocumented in this encounter Care Teams Voice Data Communications Engineer Relationship Specialty Start Date End Date NameKumar MD [address] [place] [address] PCP - General Family Medicine 04/05/19 Lyudmila Clark, PharmD [address] [place] [address] Pharmacist Internal Medicine 03/04/23 documented as of this encounter
--- OUTSIDE RECORDS SUMMARY | 2025-04-24 09:39 | XMS_ITS | Encounter Summary ---
Author Organization [facility] Address [address] [facility] [address] [place] [address] Phone Care Team Providers Care Electronic Engraver Name Role Phone Unknown, Unknown Unavailable Unavailable Helena Castillo CNP Primary Care Provider [phone] Nicole Escobedo Unavailable Cruzito [email or web address] Benitez RN Unavailable [email or web address] Name, Kumar CESAR Primary Care Provider [phone] Encounter Details Date Type Department Care Team (Late st Contact Info) Description 09/23/2022 Documentation [facility], Division of Hematologic Oncology, [facility] [address] [place] [address], 7th [place] [address] Aleja Garcia RN [address] [place] [phone] [email or web address] Social History Tobacco Use Types Packs/Day Years [...] 3:00 PM EDT Blood Draw Laboratory Services, [facility] [address] [facility], 2nd Floor [place], [place] Christiano Loya MD [address] [place] [address] Edmond [facility] [place] [email or web address] 10/29/2025 4:00 PM EDT Office Visit [facility], Division of Hematologic Oncology, [facility] [address] [place] [address], 7th [place], [place] [phone] Christiano Loya MD [address] [place] [address] Ed[place] [facility] [place] [email or web address] documented as of this encounter Visit Diagnoses Not on filedocumented in this encounter Care Teams Electronic Engraver Relationship Specialty Start Date End Date Helena Castillo, PATIENT MONITOR [address] [address] PCP - General Nurse Practitioner 09/16/22 12/07/22 Name, MD Kumar [address] [place] [address] PCP - General Internal Medicine 12/08/22 Unknown, Unknown, 01/31/19 Nicole Escobedo [address] [address] [email or web address] Health Evaluator 10/13/22 Ronel Aceves, RN [address] [place] [address] [email or web address] Primary Infusion Nurse 10/13/22 documented as of this encounter Additional Source Comments The information contained in this document represents components of the legal health record. It is not the complete legal health record.[facility]
--- OUTSIDE RECORDS SUMMARY | 2025-04-24 09:39 | XMS_ITS | Clinical Summary ---
Author Organization [facility] Address [address] [facility] [address] [place] [address] Phone Care Team Providers Care Flexible Nanny Name Role Phone Unknown, Unknown Unavailable Unavailable Nicole Escobedo Unavailable Cruzito [email or web address] Benitez RN Unavailable [email or web address] Name, Kumar CESAR Primary Care Provider [phone] Allergies No known active allergies Medications amLODIPine (NORVASC) 5 MG tablet Take 5 mg by mouth daily. 01/22/2021 Active zoledronic acid (ZOMETA) 4 mg/100 mL PgBk Inject 4 mg into the vein every 3 (three) months. Active calcium carbonate/vitami n D3 (CALTRATE 600 + D ORAL) Take by mouth. 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 Multiple myeloma 09/17/2022 Encounters Date Type Department Care Team Description 03/20/2025 4:00 PM EDT Office Visit [facility], Division of Hematologic Oncology, [facility] [place] [address] [place] [address], 7th [place] [address] Christiano Loya MD Multiple myeloma in remission (Primary Dx) from Last 3 Months Social History Tobacco Use Types Packs/Day Years [...] on file Sexual Orientation Not on file Last Filed Vital Signs Vital Sign [place] Time Taken Comments Blood Pressure 178/76 03/20/2025 3:08 PM EDT Pulse 66 03/20/2025 3:08 PM EDT Temperature 36.7 C (98 F) 03/20/2025 3:08 PM EDT Respiratory Rate 16 03/20/2025 3:08 PM EDT Oxygen Saturation 100% 03/20/2025 3:08 PM EDT Inhaled Oxygen Concentration - - Weight 72.6 kg (160 lb 0.9 oz) 03/20/2025 3:08 P M EDT Height 156.2 cm (5' 1.5 ) 03/20/2025 3:08 PM EDT Body Mass Index 29.76 03/20/2025 3:08 PM EDT Plan of Treatment Upcoming Encounters Date Type Department Care Team (Late st Contact Info) Description 10/29/2025 3:00 PM EDT Blood Draw Laboratory Services, [address], 2nd [place] [address] Christiano Loya MD [address] [place] [address] [facility]mond [facility] [place] [address] [email or web address] 10/29/2025 4:00 PM EDT Office Visit [facility], Division of Hematologic Oncology, [address], 7th [place] [address] Christiano Loya MD [address] [place] [address] Edmond [facility] [place] [address] [phone] (work) [email or web address] Health Maintenance Due Date Last Done Comments DEPRESSION SCREENING 1986 HEPATITIS C SCREENING 1992 HIV ONE-TIME SCREENING (18-6 5 YEARS) 1992 PNEUMOCOCCAL VACCINES (50+ years) (1 of 2 - PCV) 1993 ZOSTER VACCINES (1 of 2) 1993 PAP SMEAR 1995 SMOKING STATUS SCREENING (On ce After 26 Yrs) 2000 MAMMOGRAM 2014 COLOGUARD 2019 COLONOSCOPY 2019 COLORECTAL CANCER SCREENING 2019 FIT TEST 2019 FOBT 2019 SIGMOIDOSCOPY 2019 VIRTUAL COLONOSCOPY 2019 Adult Td,Tdap Booster 07/11/2023 07/11/2013 , 09/30/2009 INFLUENZA VACCINE (#1) 2025 COVID-19 VACCINE (1 - 2023-2 5 season) 2025 SCREENING FOR DIABETES 03/20/2028 03/20/2025 LIPID PANEL 08/20/2028 08/20/2023 HEPATITIS A VACCINES Aged Out No long er eligible based on patient's age to complete this topic HIB VACCINES Aged Out No longer eligi ble based on patient's age to complete this topic MENINGOCOCCAL VACCINES (ACWY) Aged Out No longer eligible based on patient's age to complete this topic MENINGOCOCCAL VACCINES (B) Aged Out N o longer eligible based on patient's age to complete this topic Medical Devices Not on file Procedures Procedure Name Priority Date/Time Associated Diagnosis Comments LDH Routine 03/20/2025 3:00 PM EDT Multiple myeloma in remission PHOSPHORUS Routine 03/20/2025 3:00 PM EDT Multiple myeloma in remission MAGNESIUM Routine 03/20/2025 3:00 PM EDT Multiple myeloma in remission BETA-2 MICROGLOBULIN, BLOOD Routine 03/20/2025 3:00 PM EDT Multiple myeloma in remission FREE LIGHT CHAINS, SERUM Routine 03/20/2025 3:00 PM EDT Multiple myeloma in remission COMPREHENSIVE METABOLIC PANEL Routine 03/20/2025 3:00 PM EDT Multiple myeloma in remission SPEP PANEL WITH IMMUNOFIXATION Routine 03/20/2025 3:00 PM EDT Multiple myeloma in remission HC BLOOD COUNT COMPLETE AUTO&AUTO DIFRNTL WBC Routine 03/20/2025 3:00 PM EDT Multiple myeloma in remission SERUM PROTEIN ELECTROPHORESIS Routine 03/20/2025 12:00 AM EDT from Last 3 Months Results * SPEP panel with immunofixation (03/20/2025 3:00 PM EDT) TOTAL PROTEIN 6.9 6.4 - 8.3 g/dL [facility] SPEP SEE PATHOLOGY REPORT [facility] IMMUNOFIXATION SEE PATHOLOGY REPORT [facility] IgA 203 70 - 400 mg/dL [facility] IMMUNOGLOBULIN G 1,084 700 - 1,600 mg/dL [facility] IMMUNOGLOBULIN M 89 40 - 230 mg/dL [facility] Blood 03/20/2025 3:00 PM EDT 03/20/2025 3:04 PM EDT Christiano Loya MD LAB BLOOD ORDERABLES Final Result [facility] [address] [place] [address] * LDH (03/20/2025 3:00 PM EDT) LDH 137 135 - 225 U/L [facility] LIC# [id number] Blood 03/20/2025 3:00 PM EDT 03/20/2025 3:04 PM EDT Christiano Loya MD LAB BLOOD ORDERABLES Final Result [facility] LIC# [id number] [place] [address] * Comprehensive metabolic panel (03/20/2025 3:00 PM EDT) SODIUM 137 136 - 145 mmol/L [facility] LIC# [id number] POTASSIUM 3.6 3.4 - 5.1 mmol/L [facility] LIC# [id number] CHLORIDE 101 98 - 107 mmol/L [facility] LIC# [id number] CO2 25 22 - 31 mmol/L [facility] LIC# [id number] BUN 19 6 - 23 mg/dL [facility] LIC# [id number] CREATININE 0.78 0.50 - 1.20 mg/dL [facility] LIC# [id number] GLUCOSE 98 70 - 100 mg/dL [facility] LIC# [id number] ALBUMIN 4.3 3.5 - 5.2 g/dL [facility] LIC# [id number] TOTAL PROTEIN 7.0 6.4 - 8.3 g/dL [facility] LIC# [id number] CALCIUM 9.1 8.8 - 10.7 mg/dL [facility] LIC# [id number] ALKALINE PHOSPHATASE 48 35 - 104 U/L [facility] LIC# [id number] TOTAL BILIRUBIN 0.6 0.2 - 1.2 mg/dL [facility] LIC# [id number] AST 16 <33 U/L [facility] LIC# [id number] ALT 18 <34 U/L [facility] LIC# [id number] GLOBULIN 2.7 2.3 - 4.2 g/dL [facility] LIC# [id number] EGFR 92 >59 mL/min/1.7 3m2 [facility] LIC# [id number] Comment:Estimated glomerular filtration rate calculated using the CKD-EPI refit equation. ANION GAP 11 7 - 17 mmol/L [facility] LIC# [id number] Blood 03/20/2025 3:00 PM EDT 03/20/2025 3:04 PM EDT Christiano Loya MD LAB BLOOD ORDERABLES Final Result [facility] LIC# [id number] [address] [place] [address] * Free light chains, serum (03/20/2025 3:00 PM EDT) FREE KAPPA LT CHAIN 15.4 3.3 - 19.4 mg/L [facility] FREE LAMBDA LT CHAIN 13.9 5.7 - 26.3 mg/L [facility] FREE KAPPA LAMBDA RAT 1.11 0.26 - 1.65 [facility] Blood 03/20/2025 3:00 PM EDT 03/20/2025 3:04 PM EDT Christiano Loya MD LAB BLOOD ORDERABLES Final Result Performing Organization Address City/[facility]/ZIP Co de Phone Number [facility] [address] [place] [address] * CBC and differential (03/20/2025 3:00 PM EDT) WBC 8.36 4.00 - 10.00 K/uL [facility] LIC# [id number] RBC 4.53 3.90 - 6.00 M/uL [facility] LIC# [id number] HGB 13.3 11.5 - 16.4 g/dL [facility] LIC# [id number] HCT 39.4 36.0 - 48.0 % [facility] LIC# [id number] PLT 300 150 - 450 K/uL [facility] LIC# [id number] MCV 87.0 80.0 - 100.0 fL [facility] LIC# [id number] MCH 29.4 27.0 - 32.0 pg [facility] LIC# [id number] MCHC 33.8 32.0 - 36.0 g/dL [facility] LIC# [id number] RDW 13.6 11.5 - 14.5 % [facility] LIC# [id number] MPV 10.4 8.4 - 12.0 fL [facility] LIC# [id number] NRBC 0.00 0 /100 WBCs [facility] LIC# [id number] ABSOLUTE NRBC 0.00 0 K/uL [facility] LIC# [id number] DIFF METHOD Auto [facility] LIC# [id number] NEUTS 55.5 48.0 - 76.0 % [facility] LIC# [id number] LYMPHS 34.3 18.0 - 41.0 % [facility] LIC# [id number] MONOS 8.0 4.0 - 11.0 % [facility] LIC# [id number] EOS 1.3 0.0 - 5.0 % [facility] LIC# [id number] BASOS 0.7 0.0 - 1.5 % [facility] LIC# [id number] % IMMATURE GRANS 0.2 0.0 - 1.0 % [facility] LIC# [id number] ABSOLUTE NEUTS 4.63 1.92 - 7.60 K/uL [facility] LIC# [id number] ABSOLUTE LYMPHS 2.87 0.72 - 4.10 K/uL [facility] LIC# [id number] ABSOLUTE MONOS 0.67 0.16 - 1.10 K/uL [facility] LIC# [id number] ABSOLUTE EOS 0.11 0.00 - 0.50 K/uL [facility] LIC# [id number] ABSOLUTE BASOS 0.06 0.00 - 0.15 K/uL [facility] LIC# [id number] ABS IMMATURE GRANS 0.02 0.00 - 0.10 K/uL [facility] LIC# [id number] Blood 03/20/2025 3:00 PM EDT 03/20/2025 3:04 PM EDT us Christiano Loya MD LAB BLOOD ORDERABLES Final Result [facility] LIC# [id number] [address] [place] [address] * Phosphorus (03/20/2025 3:00 PM EDT) PHOSPHORUS 3.1 2.5 - 4.5 mg/dL [facility] LIC# [id number] Blood 03/20/2025 3:00 PM EDT 03/20/2025 3:04 PM EDT us Christiano Loya MD LAB BLOOD ORDERABLES Final Result Performing Organization Address [facility]/State/ZIP Co de Phone Number [facility] LIC# [id number] [address] [place] [address] * Magnesium (03/20/2025 3:00 PM EDT) MAGNESIUM 2.0 1.7 - 2.6 mg/dL [facility] LIC# [id number] Blood 03/20/2025 3:00 PM EDT 03/20/2025 3:04 PM EDT us Christiano Loya MD LAB BLOOD ORDERABLES Final Result Performing Organization Address [facility]/ZIP Co de Phone Number [facility] LIC# [id number] [address] [place] [address] * Beta-2 microglobulin, blood (03/20/2025 3:00 PM EDT) BETA 2 MICROGLOBULIN 1.3 0.8 - 2.2 mg/L [facility] LIC# [id number] Blood 03/20/2025 3:00 PM EDT 03/20/2025 3:04 PM EDT us Christiano Loya MD LAB BLOOD ORDERABLES Final Result Performing Organization Address [facility] Co de Phone Number [facility] LIC# [id number] [address] [place] [address] * Protein Electrophoresis (03/20/2025 12:00 AM EDT) 03/20/2025 03/20/2025 [facility] - 03/24/2025 9:51 AM EDT CASE: [id number] PATIENT: FAYE HOLLAND Date: 1975 Sex: Female [facility] Department of Pathology [address] [place], [place] [address]IA License No.: [id number] Cat Driver: Sugey Cole MD, PhD Resident: Codey Moise M.D., Ph.D. Pathologist: Hank Foote M.D., Ph.D. CLINICAL DATA: Clinical Diagnosis: TEST ORDERED: Serum protein electrophoresis professional interpretation - [facility] Serum immunofixation electrophoresis professional interpretation - [facility] RESULT: Reference range Total Protein 6.9 g/dl 6.4 - 8.3 g/dL Albumin 3.64 g/dl 3.20 - 5.30 g/dL Alpha 1 0.24 g/dl 0.10 - 0.40 g/dL Alpha 2 0.81 g/dl 0.50 - 1.00 g/dL Beta 1.04 g/dl 0.60 - 1.20 g/dL Gamma 1.17 g/dl 0.80 - 1.70 g/dL [place] 15.4 mg/L 3.3 - 19.4 mg/L Lambda 13.9 mg/L 5.7 - 26.3 mg/L [place]/Lambda 1.11 0.26 - 1.65 IgG 1084 mg/dL 700 - 1600 mg/dL IgA 203 mg/dL 70 - 400 mg/dL IgM 89 mg/dL 40 - 230 mg/dL Gamma M Guido 1 0.48 g/dl* MOST RECENT PRIOR SERUM ELECTROPHORESIS RESULTS: Date Beta Gamma [place] Lambda K/L IgG IgA IgM MSp1 MSp2 MSp3 g/dl g/dl mg/l mg/l mg/dl mg/dl mg/dl g/dl g/dl g/dl 07/18/24 0.95 0.99 16.1 13.3 1.21 990 204 90 11/22/23 1.00 1.12 16.6 14.9 1.11 1032 235 90 05/03/23 0.94 1.05 19.6 14.5 1.35 1059 245 88 12/23/22 1.04 1.07 19.9 15.0 1.33 1026 227 83 09/16/22 1.02 1.04 1035 238 64 05/25/22 0.96 1.01 19.1 15.5 1.23 1047 225 62 11/03/21 0.93 1.03 18.0 14.6 1.23 1044 206 57 04/21/21 0.97 1.13 19.1 15.8 1.21 1105 193 62 0.29 0.27 10/21/20 0.95 1.02 15.6 11.4 1.37 1034 152 55 0.34 02/14/20 0.85 1.02 12.7 6.4 1.98 1027 83 40 0.60 08/16/19 0.81 1.32 10.9 6.2 1.76 1375 61 30 1.01 03/22/19 0.82 3.63 29.6 3.8 7.79 4650 53 15 3.43 INTERPRETATION: Protein Electrophoresis: -M-spike detected The M-spike is admixed within a background of polyclonal immunoglobulins. The M-spike concentration reported includes both the M-spike and the polyclonal immunoglobulin background and is thus an overestimate. 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 By his/her signature below, the senior physician certifies that he/she personally reviewed all the laboratory data of the described specimen(s) and rendered or confirmed the diagnosis(es) related thereto. Final Diagnosis by Hank Foote M.D., Ph.D., Electronically signed on Monday March 24, 2025 at 09:50:55AM Christiano Loya MD PATHOLOGY ORDERABLES Final Result Performing Organization Address City/State/[facility] Co de Phone Number [facility] [address] [place] [phone] from Last 3 Months Insurance [facility] [place] [phone] [place] [address] Care Teams Flexible Nanny Relationship Specialty Start Date End Date Name, MD Kumar [address] [place] [address] PCP - General Internal Medicine 12/08/22 Unknown, Unknown, 01/31/19 Nicole [email or web address] Farmer Cash Grain 10/13/22 Ronel Aceves, RN [address] [place] [address] [email or web address] Primary Infusion Nurse 10/13/22 Additional Source Comments The information contained in this document represents components of the legal health record. It is not the complete legal health record.[facility]
--- OUTSIDE RECORDS SUMMARY | 2025-04-24 09:39 | XMS_ITS | Encounter Summary ---
Author Organization [facility] Address [address] [address] Phone Care Team Providers Care Substation Operator Conversion Name Role Phone Unknown, Unknown Unavailable Unavailable Name, Kumar CESAR Primary Care Provider [phone] Helena Castillo CNP Primary Care Provider [phone] Nicole Escobedo Unavailable Cruzito [email or web address] Ronel Benitez RN Unavailable [email or web address] Name, Kumar CESAR Primary Care Provider [phone] Encounter Details Date Type Department Care Team (Late st Contact Info) Description 08/24/2022 Procedure Pass [facility] Echocardiography [address] [place] [address] Social History Tobacco Use Types Packs/Day Years [...] EDT Blood Draw Laboratory Services, [facility] [place] [address] [place] [address], 2nd [place] [address] Christiano Loya MD [address] [place] [address] [facility] Multiple Myeloma [place] [address] [email or web address] 10/29/2025 4:00 PM EDT Office Visit [facility], Division of Hematologic Oncology, [facility] [place] [address] [place] [address], 7[address] [place] [address] Christiano Loya MD [address] [place] [address] [facility] [place] [address] [email or web address] documented as of this encounter Visit Diagnoses Not on filedocumented in this encounter Care Teams Substation Operator Conversion Relationship Specialty Start Date End Date Name, MD Kumar [address] [place] [id number] PCP - General Geriatric Psychiatry 03/22/19 09/15/22 Helena Castillo, SEARCH MANAGER [address] [place] [phone] [email or web address] PCP - General Nurse Practitioner 09/16/22 12/07/22 Name, MD Kumar [address] [place] [address] PCP - General Internal Medicine 12/08/22 Unknown, Unknown, 01/31/19 Nicole Escobedo [address] [place] [phone] Camron [email or web address] Director Of Architecture 10/13/22 Ronel Aceves, VANGIE [address] [place] [address] [email or web address] Primary Infusion Nurse 10/13/22 documented as of this encounter Additional Source Comments The information contained in this document represents components of the legal health record. It is not the complete legal health record.[facility]
--- OUTSIDE RECORDS SUMMARY | 2025-04-24 09:39 | XMS_ITS | Encounter Summary ---
Author Organization [facility] Address [address] [facility] [address] [place] [phone] Phone Care Team Providers Care Director Of Assessing Name Role Phone Unknown, Unknown Unavailable Unavailable Helena Castillo CNP Primary Care Provider [phone] Nicole Escobedo Unavailable Cruzito [email or web address] Benitez RN Unavailable [email or web address] Name, Kumar CESAR Primary Care Provider [phone] Encounter Details Date Type Department Care Team (Late st Contact Info) Description 09/17/2022 Documentation [facility], Division of Hematologic Oncology, [facility] [place] [address] [place] [address], [address]th [place] [address] Aleja Garcia, VANGIE [address] [place] [id number] [email or web address] Social History Tobacco Use Types Packs/Day Years Used Date Smoking Tobacco: Never Smokeless Tobacco: Never Comments Unknown Sex and Gender Information Value Date Recorded Sex Assigned at Not on file Legal Sex Female 12:23 PM EDT Gender Identity Not on file Sexual Orientation Not on file documented as of this encounter Progress Notes * Lyla Angelo PA-C - 09/17/2022 11:18 AM EST Images from the original note were not included. AUTOLOGOUS FEMALE DONOR EVALUATION NOTE Planned date of mobilization: 10/10/2022 (Note: Transplant evaluating clinician must sign this form prior to mobilization date) Will any of the FDA/AABB required infectious disease be outdated (greater than 30 days) at the timeof collection or not performed prior to collection?: No (Note: The Collect Facility must be notified in writing if the response to this question changes prior to donation collection.) Is the donor , , , Milad Black, South or Central [place] Black, or Other Black? OR is the donor from the [place], [place], or [place]?: No Does the donor have a personal or family history of any hemoglobinopathies? (Examples include sickle cell disease or Thalassemia): No If Yes or Unsure to either of the two questions above, an appropriate hemoglobinopathy test is required. Will a hemoglobinopathy test be ordered and resulted prior to mobilization?: N/A Is the donor greater than 54 years of age?: No Is the donor post menopausal with no menses for greater than one year?: Yes Is the donor surgically sterile?: Yes. Please explain: Partial hysterectomy, 2009. No periods afterthat If a No response to all three questions above, a serum test is required to occur within7 days prior to mobilization or marrow harvest. Will a serum test be done according to these guidelines, or has one been done already?: N/A Does the donor use recreational drugs?: No Does the donor use alcohol?: No Does the donor use tobacco?: No Does the donor have a history of any cardiac issues?: No Does the donor have a history of diabetes?: No Does the donor have a history of migraine headaches?: No Medical Clearance Statement I, the transplant evaluating clinician, have reviewed all donor data, including the medical history, physical exam, relevant medical records and laboratory test results, and have deemed this donor jaycee medically suitable for the following events (select all that apply): Mobilization and apheresis Any abnormal findings not mentioned above that would contribute to added safety concerns pertainingto line placement, mobilization, and/or collection will be or has been communicated to the appropriate collection facility and shall be noted here: None The information gathered about this patient's medical history was obtained by the [facility]. I verified the information above through a chart review of [facility] records from the hematology/oncology team. Lyla Angelo MS, PA-C Physician Flatbed Press Operator Hematologic Malignancies and Stem Cell Transplant (t) [phone], pager#[phone] documented in this encounter Plan of Treatment Upcoming Encounters Date Type Department Care Team (Late st Contact Info) Description 10/29/2025 3:00 PM EDT Blood Draw Laboratory Services, [address], [address] Floor [place], [place] Christiano Loya MD [address] [place] [address] [place] [address] [email or web address] 10/29/2025 4:00 PM EDT Office Visit [facility], Division of Hematologic Oncology, [address], [address] [place] [address] Christiano Loya MD [address] [place] [address] [place] [address] [email or web address] documented as of this encounter Visit Diagnoses Diagnosis Autologous donor of stem cells documented in this encounter Care Teams Director Of Assessing Relationship Specialty Start Date End Date Helena Castillo CNP [address] [email or web address] PCP - General Nurse Practitioner 09/16/22 12/07/22 Name, MD Kumar [address] [place] [address] PCP - General Internal Medicine 12/08/22 Unknown, MD [place] 01/31/19 Nicole Escobedo [address] [email or web address] 10/13/22 Ronel Aceves, RN [address] [place] [id number] [email or web address] Primary Infusion Nurse 10/13/22 documented as of this encounter Additional Source Comments The information contained in this document represents components of the legal health record. It is not the complete legal health record.[facility]
== END 2025-04-24 08:38 | disposition home or self-care (01) ==
LOC: HO.NEURO 08:37
PROVIDERS: Visit Provider Family Medicine
DX: M79.604 Pain in right leg (principal); M79.605 Pain in left leg
CPT/HCPCS: 95886; 95913

== ENCOUNTER → 2025-04-24 08:41 | Outpatient (BNV) | payer OTHER, SELFPAY | PROVIDERS: Visit Provider Psychiatry & Neurology Neurology | DX: G57.83 Other specified mononeuropathies of bilateral lower limbs (principal) | CPT/HCPCS: 95886; 95913 ==

== ENCOUNTER 2025-05-10 15:34 | Outpatient (REF) | payer OTHER, SELFPAY ==
[2025-05-10 18:03] LABS: Anion Gap 10 (12-20); Blood Urea Nitrogen 13 mg/dL (9-16); Calcium 9.1 mg/dL (8.4-10.2); Carbon Dioxide 29 mmol/L (22-29); Chloride 103 mmol/L (96-108); Estimated Glomerular Filt Rate > 60; Potassium 3.4 mmol/L (3.3-5.1); Sodium 139 mmol/L (135-145)
== END 2025-05-10 15:35 | disposition home or self-care (01) ==
LOC: HO.HHCL 15:34
PROVIDERS: PCP Internal Medicine Geriatric Medicine; Visit Provider Internal Medicine Geriatric Medicine
DX: I10 Essential (primary) hypertension (principal)
CPT/HCPCS: 36415; 80048